=== PATIENT | male | born 1960 | race Caucasian/White ===

== ENCOUNTER 2022-01-23 07:41 | Outpatient (REF) | payer OTHER, SELFPAY ==
[2022-01-23 10:46] LABS: Hematocrit 43.3 % (42.0-52.0); Hemoglobin 14.7 g/dl (14.0-18.0); Mean Corpuscular HGB Conc 33.9 g/dl (31.0-36.0); Mean Corpuscular Hemoglobin 33.4 pg (27.0-33.0); Mean Corpuscular Volume 98.4 fL (80.0-98.0); Mean Platelet Volume 9.5 fL (9.4-12.4); Platelet Count 184 X10*3/uL (160-400); Red Cell Distribution Width 13.5 % (11.0-16.0); White Blood Count 3.8 X10*3/uL (4.8-10.8)
[2022-01-23 11:01] LABS: Alanine Aminotransferase 38 U/L (0-40); Albumin Level 4.6 g/dL (3.5-5.0); Alkaline Phosphatase 51 U/L (39-117); Anion Gap 14 (12-20); Aspartate Amino Transferase 35 U/L (5-37); Bilirubin Total 1.3 mg/dL (0.0-1.0); Blood Urea Nitrogen 14 mg/dL (9-16); Calcium 9.1 mg/dL (8.4-10.2); Carbon Dioxide 28 mmol/L (22-29); Chloride 100 mmol/L (96-108); Cholesterol 120 mg/dL; Estimated Glomerular Filt Rate > 60; Glucose Fasting 91 mg/dL (60-99); HDL Cholesterol 49 mg/dL; LDL Cholesterol Calculated 62 mg/dl; Potassium 4.7 mmol/L (3.3-5.1); Sodium 137 mmol/L (135-145); Total Protein 7.5 g/dL (6.5-8.0); Triglycerides 46 mg/dL
[2022-01-23 11:22] LABS: Prostate Specific Antigen Scr 1.08 ng/mL (<0.05-4.0); TSH reflex Free T4 1.18 uIU/mL (0.32-4.0)
[2022-01-23 12:28] LABS: Estimated Average Glucose 91 mg/dL; Hemoglobin A1c % 4.8 %
== END 2022-01-23 07:42 | disposition home or self-care (01) ==
LOC: HO.10HDL 07:41
PROVIDERS: Visit Provider Physician Assistant
DX: Z12.5 Encounter for screening for malignant neoplasm of prostate (principal); I25.10 Atherosclerotic heart disease of native coronary artery without angina pectoris
CPT/HCPCS: 36415; 80053; 80061; 83036; 84153; 84443; 85027

== ENCOUNTER 2022-07-10 19:48 | Outpatient (REF) | payer OTHER, SELFPAY ==
--- NOTE | ~2022-07-10 | MR_ITS ---
EXAMINATION: MR LUMBAR SPINE WITHOUT CONTRAST CLINICAL INFORMATION: Low back pain radiating into legs. COMPARISON: None available. TECHNIQUE: Multiplanar, multisequence imaging was obtained. FINDINGS: VERTEBRAL BODIES AND PARASPINAL STRUCTURES: The marrow signal is heterogeneous with fatty changes diffusely. There are no compression fractures. Minimal anterolisthesis noted at the L3-L4 level with very mild endplate edematous changes. There is a mild leftward curvature of the lumbar spine. The paraspinal soft tissues are normal. There are qbbp-[id number] degenerative changes of the sacroiliac joints. CONUS MEDULLARIS AND CAUDA EQUINE: The distal cord, conus tip, and cauda equina nerve roots are normal. SPINAL LEVELS: L1-L2: No disc pathology. Mild facet arthrosis. No central canal stenosis or foraminal narrowing. L2-L3: Small right paracentral disc protrusion and hypertrophic facet arthropathy with a mild disc bulge. Mild right foraminal narrowing due to bulging disc and endplate spurring. No significant central canal stenosis. L3-L4: Fqry-ad-ynvqbrnp loss of disc height and reduced intradiscal signal with a mild diffuse disc bulge and left paracentral to left lateral recess disc extrusion migrating inferiorly with compression of the left L4 nerve root. Xfvytkkv-hl-rwdgzn compression of the thecal sac as well. Hypertrophic facet arthropathy contributes to moderate central canal stenosis. Gthh-mb-ifoavukq foraminal narrowing, worse on the right side. L4-L5: Disc bulge and hypertrophic facet arthropathy without central canal stenosis. Right posterolateral disc protrusion results in moderate right foraminal encroachment and impression upon the exiting right L4 nerve root. Mild left foraminal narrowing. L5-S1: Mild disc bulge and hypertrophic facet arthropathy without central canal stenosis or foraminal narrowing. MR/MR lumbar spine wo con IMPRESSION: 1. Moderate spondylosis at the L3-L4 level with a left paracentral to left lateral recess disc extrusion migrating inferiorly and compressing the left L4 nerve root. Wgiilhsq-zm-bmdtcw thecal sac compression and moderate central canal stenosis with hypertrophic facet arthropathy. 2. Right posterolateral disc protrusion at the L4-L5 level with moderate right foraminal encroachment and impression upon the right L4 nerve root. 3. Small right paracentral disc protrusion at the L2-L3 level. Mild leftward lumbar spinal curvature.
== END 2022-07-10 19:49 | disposition home or self-care (01) ==
LOC: HO.MRI 19:48
PROVIDERS: PCP Physician Assistant; Visit Provider Physician Assistant
DX: M54.16 Radiculopathy, lumbar region (principal)
CPT/HCPCS: 72148

== ENCOUNTER 2022-08-01 10:42 | Outpatient (REF) | payer OTHER, SELFPAY ==
[2022-08-01 13:12] LABS: MANUAL DIFF FLAG NO
[2022-08-01 13:19] LABS: Basophils Absolute Auto 0.1 X10*3/uL (0.0-0.2); Basophils Percent Auto 1.2 % (0-2); Eosinophils Absolute Auto 0.3 X10*3/uL (0.0-0.4); Eosinophils Percent Auto 5.5 % (0-4); Hematocrit 44.9 % (42.0-52.0); Hemoglobin 15.6 g/dl (14.0-18.0); Imm Gran Abs Auto 0.01 X10*3/uL (0.00-0.03); Imm Gran Pct Auto 0.2 % (0.0-0.4); Lymphocytes Absolute Auto 1.7 X10*3/uL (1.2-4.9); Lymphocytes Percent Auto 32.4 % (20-40); Mean Corpuscular HGB Conc 34.7 g/dl (31.0-36.0); Mean Corpuscular Hemoglobin 33.2 pg (27.0-33.0); Mean Corpuscular Volume 95.5 fL (80.0-98.0); Mean Platelet Volume 9.9 fL (9.4-12.4); Monocytes Absolute Auto 0.4 X10*3/uL (0.1-1.2); Monocytes Percent Auto 8.2 % (2-11); Neutrophils Absolute Auto 2.7 x10*3/uL (2.0-8.3); Neutrophils Percent Auto 52.5 % (45-73); Platelet Count 195 X10*3/uL (160-400); Red Cell Distribution Width 14.2 % (11.0-16.0); White Blood Count 5.1 X10*3/uL (4.8-10.8)
[2022-08-01 14:07] LABS: TSH reflex Free T4 1.25 uIU/mL (0.32-4.0)
[2022-08-01 14:08] LABS: Alanine Aminotransferase 35 U/L (0-40); Albumin Level 4.5 g/dL (3.5-5.0); Alkaline Phosphatase 47 U/L (39-117); Anion Gap 15 (12-20); Aspartate Amino Transferase 31 U/L (5-37); Bilirubin Total 1.4 mg/dL (0.0-1.0); Blood Urea Nitrogen 22 mg/dL (9-16); Calcium 9.4 mg/dL (8.4-10.2); Carbon Dioxide 24 mmol/L (22-29); Chloride 105 mmol/L (96-108); Estimated Glomerular Filt Rate > 60; Glucose Random 90 mg/dL (60-115); Potassium 4.8 mmol/L (3.3-5.1); Sodium 139 mmol/L (135-145); Total Protein 7.5 g/dL (6.5-8.0)
[2022-08-01 14:09] LABS: Prothrombin Time 11.3 SEC (10.0-13.1)
== END 2022-08-01 10:43 | disposition home or self-care (01) ==
LOC: HO.10HDL 10:42
PROVIDERS: Visit Provider Nurse Practitioner Family
DX: Z01.812 Encounter for preprocedural laboratory examination (principal); Z13.0 Encounter for screening for diseases of the blood and blood-forming organs and certain disorders involving the immune mechanism
CPT/HCPCS: 36415; 80053; 84443; 85025; 85610

== ENCOUNTER 2022-09-26 09:08 | Emergency (ER) | payer OTHER, SELFPAY ==
[2022-09-26 09:15] VITALS: BP 168/103; PULSE 82; RESP 17; TEMP 36.5; O2SAT 96; BMI 30.7
--- NOTE | 2022-09-26 09:32 | ED.GENADULT ---
HPI - General Adult General Chief complaint: Back Pain/Injury Stated complaint: recent back surgery, having pain Time Seen by Provider: 09/26/22 09:23 Source: patient and family () Mode of arrival: ambulatory Limitations: no limitations History of Present Illness HPI narrative: Patient is a 62-year-old male with history of recent disc decompression of L3/L4 on 08/08/2022 presenting to the emergency department with complaint of right lower back and hip pain radiating down right leg for the past 3 days. States the pain began as a dull ache in right lateral hip and has progressively worsened. Contacted his surgeon who recommended patient be evaluated in an emergency department. Patient denies any saddle anesthesia, bowel or bladder incontinence, urinary retention. Denies any other urinary symptoms. Denies any numbness or tingling to right leg. States has taken his prescribed oxycodone and gabapentin with little relief. Currently rates pain at ?12/10. ? Denies fevers. Reports has been unable to sleep the past 2 nights related to pain. Patient reports that his pain prior to the surgery was always on his left side. He denies any chest pain or shortness of breath. MD complaint: right lower back pain Onset (ago): day(s) Location: back Radiation: extremity Severity: severe Severity scale (1-10): >10 Quality: burning and aching Pain Consistency: constant Relieving factors: none Exacerbating factors: movement Associated symptoms: denies other symptoms Treatments prior to arrival: other (prescribed oxycodone and gabapentin) Related Data Home Medications Medication Instructions Recorded Confirmed aspirin 81 mg tablet,delayed 81 mg PO DAILY 11/28/21 07/02/22 release atorvastatin 80 mg tablet 80 mg PO BEDTIME 11/28/21 07/02/22 clopidogrel 75 mg tablet 75 mg PO DAILY 11/28/21 07/02/22 lisinopril 10 mg tablet 10 mg PO DAILY 11/28/21 07/02/22 metoprolol succinate 25 mg 25 mg PO DAILY 11/28/21 07/02/22 tablet,extended release 24 hr Previous Rx's Medication Instructions Recorded ibuprofen 600 mg tablet 600 mg PO Q8H PRN pain 15 days #45 07/31/22 tabs oxycodone 5 mg tablet 5 mg PO Q8H PRN pain 5 days #15 07/31/22 tabs prednisone 50 mg tablet 50 mg PO DAILY #4 tabs 09/26/22 Allergies Allergy/AdvReac Type Severity Reaction Status Date / Time No Known Allergies Allergy Verified 09/26/22 10:06 Review of Systems Review of Systems: As per HPI. Yes all other systems are reviewed and are negative Constitutional: Constitutional: Reports as per HPI Neurologic: Denies Sensory deficit (Neuro) [facility] Past Medical History Medical History (Updated 09/26/22 @ 12:12 by Deana Matthew NP) Hypercholesterolemia Hypertension Myocardial infarct, old Surgical History (Updated 09/26/22 @ 09:45 by Sharla Mcgowan RN) Hx of heart artery stent Previous back surgery Family History Family History Mother Skin cancer Father CAD (coronary artery disease) Social History Social History Housing: House Alcohol intake: current Alcohol intake frequency: holidays/special occasions only Alcohol type: wine Patient Tobacco Use Status: Former Tobacco user Quit Date: 1989 Smoked in Last 30 Days: No e-Cigarette/Vaping Use: Never Used Second Hand Smoke Exposure: No Use of substances other than those prescribed or required for medical reasons: No Advance Directives: Yes Advance Directives Information Provided: Yes Advance Directives on File: No service: No Current occupational status: employed 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 Blood pressure elevated. Heart rate normal. Respiratory rate normal. Temperature normal. Oxygen saturation normal. Const General: cooperative, healthy appearing and no acute distress Orientation/consciousness: oriented to person, oriented to place, oriented to time and patient oriented x3 Limitations: no limitations HENMT Head: Yes normocephalic and Yes atraumatic Ears: external ears normal General nose exam: Normal external nose present Face and sinus: Yes face symmetric Mouth: oropharynx normal and moist mucous membranes Throat: Yes uvula midline Eyes Pupils: Equal, round and reactive pupils present Neck Neck: Yes normal visual inspection and Yes supple Resp Effort & Inspection: normal respiratory effort and able to speak in complete sentences Auscultation: clear to auscultation bilaterally Cardio Rate: regular rate Rhythm: regular rhythm Heart sounds: S1 normal heart sound present and S2 normal heart sound present GI Palpation (GI): Soft to palpation and nontender Auscultation: normoactive bowel sounds General: Yes no CVA tenderness Back/Spine/Pelvis Back: no CVA tenderness Thoracic/Lumbar Spine: thoracic and lumbar spine normal to inspection (surgical scar appears well healed), Thoracic/lumbar spine scar(s), thoraco-lumbar ROM normal, straight leg raise negative bilaterally, pain with thoraco-lumbar ROM, No thoracic spinal tenderness and No lumbar spinal tenderness Skin General skin exam: elasticity normal and turgor normal Neuro General: oriented to person, oriented to place, oriented to time, patient oriented x3, tone normal, moves all extremities, no focal motor deficits, CN's II-XI intact bilaterally and deep tendon reflexes 2+ bilaterally Cranial nerves: Yes Equal, round and reactive pupils present Cognition (Neuro): normal cognition Motor exam (neuro): 5/5 motor strength present throughout, Normal motor muscle tone present throughout and Motor abnormalities not present Sensory Exam: Normal double simultaneous stimulation for sensation; No Sensory deficit (Neuro) Extrem General: Yes full ROM, Yes no pedal edema and Yes no calf tenderness Psych Mental Status: mental status grossly normal Affect: normal affect Thought process: Normal thought process present Medications Administered Discontinued Medications Generic Name Dose Route Start Last Admin Trade Name Felix PRN Reason Stop Dose Admin Morphine Sulfate 4 mg 09/26/22 10:09/26/22 10:25 Morphine Sulfate 4 Mg/Ml Cartridge IM 09/26/22 10:08 4 mg ONCE ONE Administration Protocol Prednisone 50 mg 09/26/22 10:09/26/22 10:26 Prednisone 10 Mg Tablet PO 09/26/22 10:08 50 mg ONCE ONE Administration Medical Decision Making Medical Decision Making [facility] Narrative: Patient is a 62-year-old male with history of recent disc decompression of L3/L4 on 08/08/2022 presenting to the emergency department with complaint of right lower back and hip pain radiating down right leg for the past 3 days. On exam patient is awake, A+Ox3, VS WNL, afebrile, normal neurological exam without focal deficits, no midline thoracic or lumbar spinal tenderness, normal straight leg raise bilaterally, DTRs 2+ throughout, sensation intact bilaterally. Given reported symptoms and physical exam findings, initial differential includes lumbar strain, post-op infection, herniated disc. Labs notable for no leukocytosis, normal CRP. X-ray of lumbar spine ordered which patient refused. Unlikely cauda equina or spinal epidural abscess based on physical exam findings. Unlikely post-op infection based on lab findings. Unlikely UTI/pyelonephritis. Patient medicated for pain in ED and prednisone ordered as well as patient states this was the recommendation from his surgeon. 12:12 Patient requesting discharge, ESR pending. Patient states that while in the ED he has scheduled an MRI for himself for Thursday. All results discussed and questions answered. Return precautions discussed at bedside. Discussed case with Dr. Harrison who feels patient is stable for discharge home. Will prescribe short course of prednisone as patient states this improved his pain in the ED. patient verbalize understanding of importance of following up with surgeon. Differential Diagnosis Differential Diagnoses: The differential diagnosis associated with the presentation includes As per MDM. Consult Healthcare Provider Management of the patient was discussed with: Underwriting Manager (Dr. Harrison) Lab Data [facility] Lab Attestation statement: I reviewed the patient's lab results. As per MDM. 09/26/22 10:26 09/26/22 10:26 Labs: Lab Results 09/26/22 09/26/22 Range/Units 10:26 10:26 WBC 4.8 (4.8-10.8) X10*3/uL RBC 4.44 L (4.60-5.80) X10*6/uL Hgb 14.6 (14.0-18.0) g/dl Hct 42.3 (42.0-52.0) % MCV 95.3 (80.0-98.0) fL MCH 32.9 (27.0-33.0) pg MCHC 34.5 (31.0-36.0) g/dl RDW 13.2 (11.0-16.0) % Plt Count 148 L (160-400) X10*3/uL MPV 9.4 (9.4-12.4) fL Immature Gran % (Auto) 0.0 (0.0-0.4) % Neut % (Auto) 41.1 L (45-73) % Lymph % (Auto) 41.0 H (20-40) % Warrick % (Auto) 9.3 (2-11) % Eos % (Auto) 7.2 H (0-4) % Baso % (Auto) 1.4 (0-2) % Lymph # (Auto) 2.0 (1.2-4.9) X10*3/uL Warrick # (Auto) 0.5 (0.1-1.2) X10*3/uL Eos # (Auto) 0.4 (0.0-0.4) X10*3/uL Baso # (Auto) 0.1 (0.0-0.2) X10*3/uL Abs Immat Gran (auto) 0.00 (0.00-0.03) X10*3/uL Absolute Neuts (auto) 2.0 (2.0-8.3) x10*3/uL Absolute Nucleated RBC 0.000 (0.0-0.012) X10*3/uL Nucleated RBC % (auto) 0.0 (0.0-0.2) /100WBC Sodium 137 (135-145) mmol/L Potassium 4.8 (3.3-5.1) mmol/L Chloride 104 (96-108) mmol/L Carbon Dioxide 26 (22-29) mmol/L Anion Gap 12 (12-20) BUN 25 H (9-16) mg/dL Creatinine 0.98 (0.5-1.4) mg/dL Estim Creat Clear Calc 84.7 Estimated GFR > 60 Random Glucose 97 (60-115) mg/dL Calcium 9.1 (8.4-10.2) mg/dL C-Reactive Protein < 0.04 (< or = 0.50) mg/dL Independent Interpretation Interpretation: Patient refused x-ray. Independent Historian Clinical information obtained from an independent historian. History obtained from or confirmed by: Spouse () External Record Review External record reviewed: Inpatient record, Office record and Outpatient record Tests considered The following testing was considered but not selected: Considered CT/MRI, but not indicated based on physical exam Prescription Management I considered prescription management with: Pain Medication and Other (prednisone) Discharge Plan Discharge Clinical Impression: Lumbar back pain with radiculopathy affecting right lower extremity Patient Disposition: Home, Self-Care Instructions: Lumbar Radiculopathy (ED) Additional Instructions: You were evaluated in the emergency department today for back pain. Your evaluation did not show signs of medical conditions requiring emergent intervention at this time. We recommended that you use ibuprofen or Tylenol per package directions every 6 hours as needed for pain. If necessary, you can alternate these medications so that you take one medication every 3 hours. For instance, at noon take ibuprofen, then at 3:00 p.m. take Tylenol, then at 6:00 p.m. take ibuprofen. You are also being prescribed a short course of a steroid called prednisone. Do not take any ibuprofen while taking the prednisone. You may resume use of ibuprofen once you have finished the prednisone. You should also use the gabapentin and oxycodone prescribed to you by your surgeon. Please schedule an appointment for follow-up with your surgeon and primary care physician this week for further evaluation of your symptoms. Return to the emergency department if you experience worsening back pain, difficulty walking, fevers, numbness, tingling, incontinence, groin numbness or tingling, or any other concerning symptoms. Prescriptions: New prednisone 50 mg tablet 50 mg PO DAILY Qty: 4 0RF No Action oxycodone 5 mg tablet 5 mg PO Q8H PRN (Reason: pain) 5 Days Qty: 15 0RF Rx Instructions: Partial Fill upon patient request. ibuprofen 600 mg tablet 600 mg PO Q8H PRN (Reason: pain) 15 Days Qty: 45 0RF metoprolol succinate 25 mg tablet extended release 24 hr 25 mg PO DAILY lisinopril 10 mg tablet 10 mg PO DAILY aspirin 81 mg tablet,delayed release (DR/EC) 81 mg PO DAILY clopidogrel 75 mg tablet 75 mg PO DAILY atorvastatin 80 mg tablet 80 mg PO BEDTIME
--- NOTE | 2022-09-26 09:46 | PC.NURSE ---
patient a&ox3, c/o rt lower back pain radiating down through groin, buttocks/hip and down leg. patient states his provider in [place] is requesting an mri, c/o 12/16 pain. pt has taken oxycodone/gabapentin and ibuprofen without relief, pt currently is not on any steroids.
[2022-09-26] MEDS: Morphine Sulfate 4 MG/ML CARTRIDGE IM (10:25)
[2022-09-26] MEDS: predniSONE 10 MG TABLET 50 MG PO (10:26)
--- NOTE | 2022-09-26 10:28 | PC.NURSE ---
patient refused xray, tech ramirez labs, pt medicated per order call sanchez within reach, will continue to monitor
[2022-09-26 10:33] LABS: MANUAL DIFF FLAG NO
[2022-09-26 10:36] LABS: Basophils Absolute Auto 0.1 X10*3/uL (0.0-0.2); Basophils Percent Auto 1.4 % (0-2); Eosinophils Absolute Auto 0.4 X10*3/uL (0.0-0.4); Eosinophils Percent Auto 7.2 % (0-4); Hematocrit 42.3 % (42.0-52.0); Hemoglobin 14.6 g/dl (14.0-18.0); Mean Corpuscular HGB Conc 34.5 g/dl (31.0-36.0); Mean Corpuscular Hemoglobin 32.9 pg (27.0-33.0); Mean Corpuscular Volume 95.3 fL (80.0-98.0); Mean Platelet Volume 9.4 fL (9.4-12.4); Monocytes Absolute Auto 0.5 X10*3/uL (0.1-1.2); Monocytes Percent Auto 9.3 % (2-11); Neutrophils Percent Auto 41.1 % (45-73); Platelet Count 148 X10*3/uL (160-400); Red Blood Count 4.44 X10*6/uL (4.60-5.80); Red Cell Distribution Width 13.2 % (11.0-16.0); White Blood Count 4.8 X10*3/uL (4.8-10.8)
[2022-09-26 10:57] LABS: Anion Gap 12 (12-20); Blood Urea Nitrogen 25 mg/dL (9-16); C Reactive Protein < 0.04 mg/dL (< or = 0.50); Calcium 9.1 mg/dL (8.4-10.2); Carbon Dioxide 26 mmol/L (22-29); Chloride 104 mmol/L (96-108); Creatinine Clr Calc Pharmacy 84.7; Estimated Glomerular Filt Rate > 60; Glucose Random 97 mg/dL (60-115); Potassium 4.8 mmol/L (3.3-5.1); Sodium 137 mmol/L (135-145)
[2022-09-26 11:28] VITALS: BP 128/76; PULSE 52; RESP 18; TEMP 36.3; O2SAT 95
--- NOTE | 2022-09-26 11:31 | PC.NURSE ---
pt a&ox3, vss, pt stating 9/10 pain level post medication administration, states that the pain worsens while he is standing but the level drops to a 4/10 when he lies flat.
[2022-09-26 12:23] LABS: Erythrocyte Sedimentation Rate 2 MM/HR (0-15)
== END 2022-09-26 12:17 | disposition home or self-care (01) ==
PROVIDERS: Registered Nurse Emergency; Emergency Provider Emergency Medicine; PCP Physician Assistant
DX: M54.16 Radiculopathy, lumbar region (principal); M54.41 Lumbago with sciatica, right side; I10 Essential (primary) hypertension; Z79.899 Other long term (current) drug therapy
CPT/HCPCS: 36415; 80048; 85025; 85652; 86140; 96372; 99284; J2270

== ENCOUNTER 2022-12-24 14:51 | Outpatient (AMB) | payer OTHER, SELFPAY ==
[2022-12-24 14:57] VITALS: BP 134/76; PULSE 79; O2SAT 99; BMI 29.8
--- NOTE | 2022-12-24 14:57 | MHC.PC.OV ---
Vital Signs 12/24/22 14:57 Height 5 ft 8 in Weight 196 lb BMI 29.8 BP 134/76 Blood Pressure Location Lt brachial Position Sitting Pulse 79 Pulse Source Pulse Oximeter Temp Source Skin Pulse Oximetry (%) 99 Oxygen Delivery Method Room Air Intake Visit Reasons: Annual Exam Intake Note: Patient is here today for a physical. 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 Allergies No Known Allergies Allergy (Verified 12/24/22 15:10) Medication List - Last Reconciled 12/24/22 by PAULINE Webb aspirin 81 mg PO DAILY atorvastatin 80 mg PO BEDTIME ibuprofen 600 mg PO Q8H PRN 15 days lisinopril 10 mg PO DAILY metoprolol succinate ER 25 mg PO DAILY Tobacco use date assessed: 12/24/22 Dental Screening Dental Screen Date: 12/24/22 Did you have a dental visit in the last 12 months?: Yes Did you have a dental problem in the last 6 months where you did not have access to dental care?: No Was dental information given to patient?: Patient has dentist HPI Annual Exam HPI Details Patient is a 62-year-old male who presents today for physical exam. Patient of REY Rendon. medical history significant for CAD-followed by Cardiology Dr. Hernandez, hypertension, lumbar radiculopathy-reports back surgery recently-follows by Neurosurgery in [place]-reports pain is improving. Patient did have normal colonoscopy in [address] [place]illo [place] [facility] [place], repeat in 10 years, will refer. Also discussed patient's need for tetanus and pneumonia vaccines, patient has declined. Up-to-date with eye and dental exams. Patient denies shortness of breath or chest pain. Patient is due for blood work. [facility] Medical History (Updated 12/24/22 @ 15:29 by PAULINE Webb) Pelvic pain in male COVID-19 Hypercholesterolemia Hypertension Myocardial infarct, old Surgical History Hx of heart artery stent Previous back surgery Family History Mother Skin cancer Father CAD (coronary artery disease) Social History Housing: House Alcohol intake: current Alcohol intake frequency: holidays/special occasions only Alcohol type: wine Patient Tobacco Use Status: Former Tobacco user Quit Date: 1989 e-Cigarette/Vaping Use: Never Used Second Hand Smoke Exposure: No service: No Current occupational status: employed Current occupation: [employer] Current occupational exposures/hazards: No Cognitive needs: No Hearing needs: No Vision needs: Yes (reading glasses) Questionnaire PHQ-9 Over the last 2 weeks, how often have you been bothered by any of the following problems? 1. Little interest or pleasure in doing things: not at all 2. Feeling down, depressed, or hopeless: not at all 3. Trouble falling or staying asleep, or sleeping too much: not at all 4. Feeling tired or having little energy: not at all 5. Poor appetite or overeating: not at all 6. Feeling bad about yourself - or that you are a failure or have let yourself or your family down: not at all 7. Trouble concentrating on things, such as reading the newspaper or watching television: not at all 8. Moving or speaking so slowly that other people could have noticed. Or the opposite - being so fidgety or restless that you have been moving around a lot more than usual: not at all 9. Thoughts that you would be better off or of hurting yourself in some way: not at all Total score: 0 Depression Screening Interpretation: Negative Depression Screening Done: Yes 58352 - PHQ-9 Billing: Yes Source: Developed by Drs. Terry Mckeon, Denise Enrique, Nacho Laboy and colleagues, with an educational erika from [employer]. Thrive Questionnaire Date Thrive assessed: 08/01/22 AUDIT C Alcohol Use Questionnaire (AUDIT-C) 1. How often do you have a drink containing alcohol?: 2-3 times a week 2. How many drinks containing alcohol do you have on a typical day when you are drinking?: 1 or 2 3. How often do you have six or more drinks on one occasion?: Never Total Score: 3 Score Reviewed/Action Taken: No EB-7 AMB Questionnaire EB-7 Date EB - 7 assessed: 12/24/22 Feeling nervous, anxious, or on edge: 0 = Not at all Not being able to stop or control worryin = Not at all Worrying too much about different things: 0 = Not at all Trouble relaxin = Not at all Being so restless that it is hard to sit still: 0 = Not at all Becoming easily annoyed or irritable: 0 = Not at all Feeling afraid as if something awful might happen: 0 = Not at all Total EB-7 score (0-4 normal; 5-9 mild; 10-14 moderate; 15-21 severe): 0 Source: Developed by Drs. Terry Mckeon, Denise Enrique, Nacho Laboy and colleagues, with an educational erika from [employer]. EB-7 Assessment Billing EB-7 Assessment Tool: EB-7 Assessment 33378 Review of Systems Const Denies body aches, Denies chills, Denies fever(s) and Denies headache(s) Eyes Denies change in vision ENT Denies dizziness, Denies otalgia, Denies headache(s), Denies nasal discharge, Denies sinus pain and Denies sore throat Card Denies chest pain, Denies edema, Denies lightheadedness and Denies dyspnea Resp Denies cough, Denies dyspnea and Denies wheezing GI Denies abdominal pain, Denies constipation, Denies diarrhea, Denies nausea and Denies vomiting Denies dysuria Musc Denies myalgias Skin/Breast Denies rash Neuro Denies dizziness and Denies headache(s) Aller/Immun Denies wheezing Physical exam (Primary Care) Vital Signs: Last Vital Signs Pulse 79 12/24/22 14:57 BP 134/76 12/24/22 14:57 Pulse Ox 99 12/24/22 14:57 Oxygen Delivery Method Room Air 12/24/22 14:57 BMI result Body Mass Index 29.8 Tobacco/Smoking Status: Tobacco use Status Tobacco use date assessed 12/24/22 12/24/22 15:03 Patient Tobacco Use Status Former Tobacco user 12/24/22 15:03 e-Cigarette/Vaping Use Never Used 12/24/22 15:03 PHQ-9: PHQ-9 Score PHQ-9: Total score 0 12/24/22 15:03 Depression Screening Interpretation: Negative Thrive Assessment: Date of Thrive Assessment Date Thrive assessed 08/01/22 12/24/22 15:03 Const General: cooperative and no acute distress Orientation/consciousness: patient oriented x3 HENMT Head: Yes normocephalic and Yes atraumatic Ears: TM's normal bilaterally Face and sinus: Yes sinuses nontender Mouth: oropharynx normal and moist mucous membranes Throat: Yes posterior oropharynx normal Eyes General: appearance normal, both eyes and all related structures Pupils: Equal, round and reactive pupils present EOM: EOMs intact bilaterally Neck Neck: Yes normal visual inspection, Yes full ROM and Yes no lymphadenopathy Thyroid: Thyroid normal Resp Effort & Inspection: normal respiratory effort and able to speak in complete sentences Auscultation: clear to auscultation bilaterally, no crackles, no rales, no rhonchi and no wheezes Cardio Rate: regular rate Rhythm: regular rhythm Heart sounds: S1 normal heart sound present, S2 normal heart sound present and no murmurs GI Palpation (GI): Soft to palpation, not firm, nontender, no guarding, not rigid and no hepatosplenomegaly Auscultation: normal bowel sounds General: No CVA tenderness Back/Spine/Pelvis Back: No CVA tenderness Skin General skin exam: no rashes or lesions noted Neuro General: patient oriented x3 Cranial nerves: Yes Equal, round and reactive pupils present Gait exam (Neuro): Normal gait present Extrem General: Yes full ROM and No edema Assessment and Plan Assessment & Plan (1) Screening for prostate cancer: Code(s): Z12.5 - Encounter for screening for malignant neoplasm of prostate (2) HTN (hypertension): Code(s): I10 - Essential (primary) hypertension Qualifiers: Hypertension type: primary hypertension Qualified Code(s): I10 - Essential (primary) hypertension Plan: Goal BP equal or less than 140/90 Continue lisinopril and metoprolol Continue to follow-up with cardiology (3) Colon cancer screening: Code(s): Z12.11 - Encounter for screening for malignant neoplasm of colon (4) CAD (coronary artery disease): Code(s): I25.10 - Atherosclerotic heart disease of [place] coronary artery without angina pectoris Qualifiers: Coronary Disease-Associated Artery/Lesion type: [place] artery [place] vs. transplanted heart: [place] heart Associated angina: without angina Qualified Code(s): I25.10 - Atherosclerotic heart disease of [place] coronary artery without angina pectoris Plan: Continue to follow-up with cardiology Dr. Hernandez at [facility] LDL goal less than 70 Continue aspirin 81 mg daily and atorvastatin Patient reports that Plavix was recently stopped by his Cardiology, he has been on Plavix for 1 year (5) Annual physical exam: Code(s): Z00.00 - Encounter for general adult medical examination without abnormal findings Plan: Repeat in 1 year Orders: Orders TSH reflex Free T4 Today I10 - Essential (primary) hypertension Comprehensive [place]. Panel Fast Today I10 - Essential (primary) hypertension Prostate Specific Antigen Today Z12.5 - Encounter for screening for malignant neoplasm of prostate Vitamin D 25-OH Total Today I25.10 - Atherosclerotic heart disease of [place] coronary artery without angina pectoris Lipid Panel Today I10 - Essential (primary) hypertension Referrals Gastroenterology Referral Z12.11 - Encounter for screening for malignant neoplasm of colon Coding Level of Care Code Est Pt Prev Care 40-64y(56164) Diagnoses Screening for prostate cancer Z12.5 Primary hypertension I10 Hypertension type: primary hypertension Colon cancer screening Z12.11 Coronary artery disease involving [place] coronary artery of [place] heart without angina pectoris I25.10 Coronary Disease-Associated Artery/Lesion type: [place] artery [place] vs. transplanted heart: [place] heart Associated angina: without angina Annual physical exam Z00.00 Additional Codes EB-7 Assessment Billing - EB-7 Assessment Tool: EB-7 Assessment [id number] ([id number])
== END 2022-12-24 15:27 | disposition home or self-care (01) ==
PROVIDERS: PCP Physician Assistant; Visit Provider Nurse Practitioner Family
DX: Z12.5 Encounter for screening for malignant neoplasm of prostate (principal); I10 Essential (primary) hypertension; Z12.11 Encounter for screening for malignant neoplasm of colon; I25.10 Atherosclerotic heart disease of native coronary artery without angina pectoris; Z00.00 Encounter for general adult medical examination without abnormal findings
CPT/HCPCS: 99396

== ENCOUNTER 2022-12-24 15:31 | Outpatient (REF) | payer OTHER, SELFPAY ==
[2022-12-24 16:56] LABS: Alanine Aminotransferase 37 U/L (0-40); Albumin Level 4.5 g/dL (3.5-5.0); Alkaline Phosphatase 51 U/L (39-117); Anion Gap 14 (12-20); Aspartate Amino Transferase 32 U/L (5-37); Bilirubin Total 1.2 mg/dL (0.0-1.0); Blood Urea Nitrogen 14 mg/dL (9-16); Calcium 9.6 mg/dL (8.4-10.2); Carbon Dioxide 26 mmol/L (22-29); Chloride 105 mmol/L (96-108); Cholesterol 129 mg/dL (<200); Estimated Glomerular Filt Rate > 60; Glucose Fasting 80 mg/dL (60-99); HDL Cholesterol 49 mg/dL (>40); LDL Cholesterol Calculated 70 mg/dL (<100); Potassium 4.1 mmol/L (3.3-5.1); Sodium 141 mmol/L (135-145); Total Protein 7.6 g/dL (6.5-8.0); Triglycerides 50 mg/dL (<150)
[2022-12-24 17:11] LABS: Prostate Specific Antigen 1.21 ng/mL (<0.05-4.0); TSH reflex Free T4 1.39 uIU/mL (0.32-4.0); Vitamin D 25-OH Total 54.1 ng/mL (>30)
== END 2022-12-24 15:32 | disposition home or self-care (01) ==
LOC: HO.LAB 15:31
PROVIDERS: PCP Physician Assistant; Referring Provider Internal Medicine Cardiovascular Disease; Visit Provider Nurse Practitioner Family
DX: Z12.5 Encounter for screening for malignant neoplasm of prostate (principal); I10 Essential (primary) hypertension; I25.10 Atherosclerotic heart disease of native coronary artery without angina pectoris; M54.50 Low back pain, unspecified
CPT/HCPCS: 36415; 80053; 80061; 82306; 84153; 84443

== ENCOUNTER 2023-04-04 21:10 | Emergency (ER) | payer OTHER, SELFPAY ==
[2023-04-04 21:26] VITALS: BP 143/88; PULSE 90; RESP 16; TEMP 36.7; O2SAT 95; BMI 31.4
[2023-04-04] MEDS: Lidocaine HCl 1 % MPF 5 ML VIAL INFILTRATI ×2 (23:06)
--- NOTE | 2023-04-04 23:29 | ED.FALL ---
HPI - Fall General Chief Complaint: Fall Stated Complaint: Fall/Eyebrow lac Time Seen by Provider: 04/04/23 22:35 Source: patient Mode of arrival: ambulatory Limitations: no limitations History of Present Illness HPI Narrative: 63-year-old male who presents emergency department for evaluation of a closed head injury and laceration to his right lateral eyebrow. Patient states that he was on his porch and was wearing sandals. He states that he slipped out of his sandals which caused him to fall forward striking his head on the wooden deck of the porch. He believes that he had a momentary loss of consciousness. His came out after she heard the fall and states that he was unresponsive briefly but then woke up. The injury occurred at 16:30 hours (6-7 hours prior to evaluation in the emergency department). Patient denies headache, nausea, vomiting, lightheadedness, dizziness, weakness. He states that his tetanus status is up-to-date. Related Data Home Medications Medication Instructions Recorded Confirmed aspirin 81 mg tablet,delayed 81 mg PO DAILY 11/28/21 12/24/22 release atorvastatin 80 mg tablet 80 mg PO BEDTIME 11/28/21 12/24/22 lisinopril 10 mg tablet 10 mg PO DAILY 11/28/21 12/24/22 metoprolol succinate 25 mg 25 mg PO DAILY 11/28/21 12/24/22 tablet,extended release 24 hr Previous Rx's Medication Instructions Recorded ibuprofen 600 mg tablet 600 mg PO Q8H PRN pain 15 days #45 07/31/22 tabs atorvastatin 40 mg tablet 40 mg PO DAILY #90 tabs 01/13/23 Allergies Allergy/AdvReac Type Severity Reaction Status Date / Time No Known Allergies Allergy Verified 04/04/23 21:26 Review of Systems Review of Systems: Yes all other systems are reviewed and are negative PMFSH Past Medical History Medical History (Updated 04/04/23 @ 23:33 by Andrew Peraza MD) Pelvic pain in male COVID-19 Hypercholesterolemia Hypertension Myocardial infarct, old Surgical History Hx of heart artery stent Previous back surgery Family History Family History Mother Skin cancer Father CAD (coronary artery disease) Social History Social History Housing: House Alcohol intake: current Alcohol intake frequency: holidays/special occasions only Alcohol type: wine Patient Tobacco Use Status: Former Tobacco user Quit Date: 1989 Smoked in Last 30 Days: Yes e-Cigarette/Vaping Use: Never Used Second Hand Smoke Exposure: No Substance Use Type: Marijuana Substance Use Frequency: Occasionally Advance Directives: Yes Advance Directives Information Provided: No Advance Directives on File: No service: No Current occupational status: employed 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 There has no significant tenderness with palpation over his right orbit. EENT: Pupils were equal round reactive light, sclera contact however normal, mouth revealed moist membranes Neuro: Cranial nerves 2-12 are intact, strength symmetric bilaterally, patient is able to walk without any difficulty Medications Administered Discontinued Medications Generic Name Dose Route Start Last Admin Trade Name Basilioq PRN Reason Stop Dose Admin Lidocaine HCl 5 ml 04/04/23 23:02 04/04/23 23:06 Lidocaine Hcl 1 % Mpf 5 Ml Vial INFILTRATI 04/04/23 23:03 5 ml ONCE STA Administration Lidocaine HCl 5 ml 04/04/23 23:02 04/04/23 23:06 Lidocaine Hcl 1 % Mpf 5 Ml Vial INFILTRATI 04/04/23 23:03 5 ml ONCE ONE Administration Procedures Laceration Right lateral eyebrow laceration: Side (If applicable): right Size (cm): 1.5 Description: stellate Depth: involves muscle layer Local Anesthetic: lidocaine 1% Amount of anesthesia used (mL): 5 Pre-repair: wound explored Skin layer closed with: nylon Size (cm): 5-0 Number of sutures: 6 Technique: simple, interrupted Subcutaneous layer closed with: vicryl Number of sutures: 3 Muscle layer closed with: vicryl Size: 3-0 Number of sutures: 3 Technique: simple, interrupted Medical Decision Making Medical Decision Making MDM Narrative: 63-year-old male with a history of hypertension, coronary artery disease who presents emergency department for evaluation of a fall from standing position, striking his head on a wooden deck and having a brief loss of consciousness. Injury occurred approximately 67 hours prior to coming to the emergency department. Patient did sustain a suturable laceration to his right lateral eyebrow, he has had no concerning symptoms such as headache, nausea, vomiting, dizziness or weakness. Vital signs were normal. Exam did reveal suturable laceration to the right lateral eyebrow otherwise was unremarkable. I recommended that the patient had a CT scan of the head rule out fracture, bleed. I did discuss the risk of missing a skull fracture, subdural epidural bleed with the patient however after this discussion he elected not to get a CT scan since he is asymptomatic. Patient's laceration was repaired in 2 layers with 3 Vicryl sutures to close the inner layer in 6 nylon sutures to close the outer layer. Patient tolerated the procedure well. Patient states that his tetanus shot was last given with in 5 years. He was given printed and verbal instructions discharged home Differential diagnosis includes was not limited to skull fracture, intracranial bleed, concussion, laceration requiring suture repair Discharge Plan Discharge Clinical Impression: Closed head injury Qualifiers: Encounter type: initial encounter Qualified Code(s): S09.90XA - Unspecified injury of head, initial encounter Face lacerations Qualifiers: Encounter type: initial encounter Qualified Code(s): S01.81XA - Laceration without foreign body of other part of head, initial encounter Patient Disposition: Home, Self-Care Instructions: Laceration (ED) Additional Instructions: You had a closed head injury with loss of consciousness which was very brief. You have no symptoms at this time (no headache, nausea, vomiting). I recommended that you get a CT scan of your head to rule out a skull fracture or bleeding in the brain however you decided that you do not want a CT scan at this time. If you developed headache, nausea, vomiting, confusion, seizure or any change that you concerned about return to the emergency department and we can get a CT scan on you. Your cut to right eyebrow was closed with three dissolvable stitches on the inside and six stitches on the outside that need to be removed in 7-10 days. Either your doctor or an urgent care clinic remove the stitches. If you can not get your stitches removed by these providers then you can come to the emergency department to have your stitches removed. Apply bacitracin or Neosporin twice a day until the stitches are removed. Please return to the emergency department if your symptoms get worse or if you develop any symptoms that are concerning to you. Prescriptions: No Action ibuprofen 600 mg tablet 600 mg PO Q8H PRN (Reason: pain) 15 Days Qty: 45 0RF atorvastatin 40 mg tablet 40 mg PO DAILY Qty: 90 1RF metoprolol succinate 25 mg tablet extended release 24 hr 25 mg PO DAILY lisinopril 10 mg tablet 10 mg PO DAILY aspirin 81 mg tablet,delayed release (DR/EC) 81 mg PO DAILY atorvastatin 80 mg tablet 80 mg PO BEDTIME
[2023-04-04] MEDS: Bacitracin Oint 0.9 GM PACKET 1 APPL TOPICAL (23:36)
== END 2023-04-04 23:43 | disposition home or self-care (01) ==
PROVIDERS: Emergency Provider Emergency Medicine Emergency Medical Services; PCP Physician Assistant
DX: S09.90XA Unspecified injury of head, initial encounter (principal); S01.111A Laceration without foreign body of right eyelid and periocular area, initial encounter; W01.198A Fall on same level from slipping, tripping and stumbling with subsequent striking against other object, initial encounter; Y93.89 Activity, other specified; Y92.018 Other place in single-family (private) house as the place of occurrence of the external cause; Y99.9 Unspecified external cause status
CPT/HCPCS: 12051; 99284

== ENCOUNTER 2023-09-16 14:49 | Outpatient (AMB) | payer OTHER, SELFPAY ==
[2023-09-16 14:58] VITALS: BP 110/70; PULSE 73; O2SAT 96; BMI 29.6
--- NOTE | 2023-09-16 14:58 | MHC.OFFVIS ---
Vital Signs 09/16/23 14:58 Height 5 ft 8 in Weight 195 lb BMI 29.6 BP 110/70 Blood Pressure Location Lt brachial Position Sitting Pulse 73 Pulse Source Pulse Oximeter Pulse Oximetry (%) 96 Oxygen Delivery Method Room Air Intake Visit Reasons: Pulmonary Nodule Intake Note: pt is here as a new patient for pulm nodule found during the hospital. 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 He was found to have a stone in the gallbladder but no acute inflammation. CT scan of chest and abdomen was performed. The only positive finding was a silent stone in the gallbladder. In the chest he was found to have with 2 mm nodule in left upper lobe. The patient was advised to have a follow-up with Pulmonary, and that is why he has come to see me today. He was also advise that he should make appointment with a natural resources extension educator, for having a possible upper endoscopy. Nando has no history of any pulmonary symptoms. He did smoke from age [age] and quit back in 1983, so basically he is considered nonsmoker and low risk. As far as his recurrent epigastric pain is concerned, he describes that it usually happens at middle of the night, and it stays for about 15-16 hours. It is happening every few weeks. He has no definite symptoms of GERD before the onset. He can not pinpoint if this is related to any food item. Because he has history of coronary artery disease each time he has pain he worries about his heart. He wants to get to the bottom of cause of this pain. HE DRINKS ALCOHOL ONLY ON SOCIAL OCCASIONS. HE SMOKES MARIJUANA OFF AND ON. NOTED ABOVE HE QUIT SMOKING CIGARETTES BACK IN 1983 [facility] Medical History Solitary pulmonary nodule Pelvic pain in male COVID-19 Hypercholesterolemia Hypertension Myocardial infarct, old Surgical History Hx of heart artery stent Previous back surgery Family History Mother Skin cancer Father CAD (coronary artery disease) Social History Housing: House Alcohol intake: current Alcohol intake frequency: holidays/special occasions only Alcohol type: wine Patient Tobacco Use Status: Former Tobacco user e-Cigarette/Vaping Use: Never Used Second Hand Smoke Exposure: No Substance Use Type: Marijuana service: No Current occupational status: employed 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 Current occupational exposures/hazards: No Cognitive needs: No Hearing needs: No Vision needs: Yes (reading glasses) Review of Systems Const All systems reviewed & are unremarkable except as noted in HPI and below Eyes Reports no additional complaints ENT Reports no additional complaints Card Denies chest pain, Denies chest pain at rest and Denies irregular heart rhythm Resp Reports no additional complaints GI Reports no additional complaints Reports no additional complaints Musc Reports no additional complaints Skin/Breast Reports system reviewed and no additional complaints, except as documented Neuro Reports no additional complaints Psych Reports no additional complaints Endo Reports no additional complaints Physical Exam Vital Signs: Last Vital Signs Pulse 73 09/16/23 14:58 BP 110/70 09/16/23 14:58 Pulse Ox 96 09/16/23 14:58 Oxygen Delivery Method Room Air 09/16/23 14:58 BMI result Body Mass Index 29.6 Const General: healthy appearing, comfortable, no acute distress, alert and awake Orientation/consciousness: patient oriented x3 HEENT Head: Yes normal to inspection General nose exam: No nasal polyps present and No nasal discharge present Face and sinus: Yes sinuses nontender Mouth: oropharynx normal Throat: Yes posterior oropharynx normal Eyes General: appearance normal, both eyes and all related structures Neck Neck: Yes normal visual inspection, Yes no lymphadenopathy, Yes trachea midline and Yes no JVD Thyroid: Thyroid normal Chest Chest palpation & inspection: normal inspection of the chest, normal palpation of entire chest wall and no tenderness Resp Effort & Inspection: normal respiratory effort Auscultation: clear to auscultation bilaterally, no crackles, no rhonchi and no wheezes Cardio Palpation: normal PMI Rate: regular rate Rhythm: regular rhythm Heart sounds: no gallops and no murmurs Peripheral pulses: Peripheral pulses 2+ throughout GI Palpation (GI): Soft to palpation, nontender, No hepatosplenomegaly present and no masses Auscultation: normal bowel sounds Back/Spine/Pelvis Thoracic/Lumbar Spine: thoracic and lumbar spine normal to inspection Skin General skin exam: no rashes or lesions noted Neuro General: patient oriented x3 and no focal motor deficits Cranial nerves: Yes CN's II-XII intact bilaterally Extrem General: Yes normal to inspection, Yes no clubbing, cyanosis or edema and Yes no calf tenderness Psych Appearance: grossly normal and well kempt Speech and movement: Normal speech and movement present Results Reviewed Results Reviewed: REPORT OF CT SCAN OF THE CHEST AT [facility] ON 08/03/2023 IS REVIEWED. 2 MM LEFT UPPER LOBE NODULE WAS NOTED. NO AORTIC ANEURYSM OR DISSECTION. HAZINESS IN THE SMALL BOWEL MESENTERIC FAT AND INCREASED NUMBER NORMAL-SIZED LYMPH NODE SUGGESTING POSSIBLE MESENTERIC PANNICULITIS. Assessment & Plan Assessment & Plan (1) Pulmonary nodule: Comment: 2 MM PULMONARY NODULE, IN A LOW RISK PATIENT ( HISTORY OF SMOKING HALF PACK A DAY FOR 19 YEARS DURING AGE [age] AND QUIT IN 1983) BASICALLY IS CONSIDERED BENIGN AND OF NO SIGNIFICANT CONCERN. Code(s): R91.1 - Solitary pulmonary nodule Category: Medical Plan: HAD A DETAILED DISCUSSION WITH THE PATIENT, EXPLAINED ABOUT THIS, AND HE UNDERSTANDS WELL. BEING A LOW RISK CASE I DO NOT THINK HE NEEDS ANY FOLLOW-UP CT SCANS. HOWEVER IF HE EVER DEVELOPS ANY PULMONARY ISSUE OR SYMPTOMS , WE WILL BE GLAD TO SEE HIM FOR FOLLOW-UP (2) Gallstones: Comment: PATIENT DISCUSSED WITH ME WHAT TO DO ABOUT CHOLELITHIASIS. AND IS IT RELATED TO THE RECURRENT EPIGASTRIC PAIN THAT HE GETS. I ADVISED HIM THAT HE SHOULD SEE A TRAFFIC RECORDER, AND MAY NEED TO HAVE UPPER ENDOSCOPY. Code(s): K80.20 - Calculus of gallbladder without cholecystitis without obstruction Category: Medical Plan: PATIENT LIVES IN [place] AGAIN HE WOULD PREFERRED TO HAVE APPOINTMENT WITH A TRAFFIC RECORDER HERE IN [place]. WE HAVE BEEN ABLE TO GET APPOINTMENT WITH HAYLEE DEWEY OF OUR GASTROENTEROLOGY DEPARTMENT, AND HE FELT VERY RELIEVED. Orders: Referrals Gastroenterology Referral K80.20 - Calculus of gallbladder without cholecystitis without obstruction Coding Level of Care Code New Pt Level 3 (35853) Diagnoses Pulmonary nodule R91.1 Gallstones K80.20
== END 2023-09-16 15:41 | disposition home or self-care (01) ==
PROVIDERS: PCP Physician Assistant; Referring Provider Physician Assistant; Visit Provider Internal Medicine
DX: R91.1 Solitary pulmonary nodule (principal); K80.20 Calculus of gallbladder without cholecystitis without obstruction
CPT/HCPCS: 99203

== ENCOUNTER → 2023-09-16 14:49 | Outpatient (BNVA) | payer OTHER, SELFPAY | PROVIDERS: PCP Physician Assistant; Referring Provider Physician Assistant; Visit Provider Internal Medicine ==

== ENCOUNTER 2023-09-23 09:47 | Outpatient (AMB) | payer OTHER, SELFPAY ==
--- NOTE | 2023-09-23 09:48 | A.OFFVIS_ITS ---
Vital Signs 09/23/23 09:50 Height 5 ft 8 in Weight 188 lb BMI 28.6 BP 113/75 Blood Pressure Location Lt brachial Position Sitting Pulse 65 Intake Visit Reasons: upper ENDO screening Intake Note: Nando presents in the office for a EGD consult. CC: States that he has been having issues with his stomach. A couple months ago it was a pain in the sternum. He states that it would happen at 2am and the first time it lasted for about 5 hours. Few nights later it occurred again and then 3/4 days after as well. It was always 2am and all he could do was walk around to make it bearable. He has Hx of heart attack - ED ruled out it was NOT his heart. Then they thought it was his gall bladder and ruled that out as well. This was at [facility] because he thought it was possibly his heart. Charge Lpn Required: No Allergies No Known Allergies Allergy (Verified 09/29/23 09:31) HPI HPI upper ENDO screening: Details: 63-year-old male here for preprocedural meeting to discuss a screening colonoscopy. He is referred by Jocelyn Hwang of [facility] primary care. PMX Coronary artery disease High cholesterol Hypertension History of NH Solitary gallstone Lumbar radiculopathy * SURGICAL HISTORY Back surgery - 2 discectomy a5t Ajit Cardiac stent x 2 arthroscopic knee surgery left * ALLERGIES: NKDA * [employer] LABS: Laboratory Tests 09/26/22 12/24/22 10:26 15:37 WBC 4.8 Hgb 14.6 Hct 42.3 Plt Count 148 L Estimated GFR > 60 Total Bilirubin 1.2 H AST 32 ALT 37 Alkaline Phosphatase 51 TSH 1.39 Review of [facility] notes and imaging LABS: 07/2023 CBC shows no white count and no anemia but he does have mild thrombocytopenia of 148,000 which appears chronic since 2021. Bilirubin and transaminases are normal as is his renal function and his alk-phos is also normal. AN H PYLORI BREATH TEST 08/[address] angio of the abdomen 07/2023 IMPRESSION: 1. No aortic aneurysm or dissection. 2. Haziness in the small bowel mesenteric fat and increased number of normal-sized lymph nodes, suggesting mesenteric panniculitis. 3. 2 mm left upper lobe nodule. If low risk for malignancy, no routine follow-up. If high risk, optional CT at 12 months. If unchanged, no further follow-up needed per Guidelines for Management of Incidental Pulmonary Nodules Detected on CT Images: From the Fleischner Society 2017. Additional chronic incidental findings as detailed above. HIDA SCAN 07/2023 ESULT: NM HIDA Scan W/O Ejection Fraction Exam: NM Hepatobiliary scan History: Abdominal pain. Technique: The patient was injected intravenously with 8.7 mCi of Tc99m Mebrofenin and dynamic imaging of the upper abdomen in the anterior view was obtained for 1 hour. Delayed images were obtained at 5 hours. Comparison studies: Correlation is made with an abdominal ultrasound dated 08/03/2023. Findings: There is prompt hepatic flow, uptake and excretion. By one hour, there is normal visualization of the common duct and small bowel, however gallbladder is not visualized. Delayed images obtained 5 hours later show radiotracer uptake within the gallbladder, thus ruling out cystic duct obstruction. Impression: No scintigraphic evidence for acute cholecystitis. ULTRASOUND OF THE RIGHT UPPER QUADRANT FINDINGS: Liver: Normal in size and echotexture. No focal lesion. Smooth hepatic contour. Main portal vein patent with normal hepatopetal direction of flow. Gallbladder: Solitary mobile gallstone measuring 1.4 cm. Normal wall thickness. No pericholecystic fluid. Negative Canales sign. Biliary Tree: No intrahepatic bile duct dilation is identified. Common duct could not be visualized. Pancreas: Obscured by overlying bowel gas. Right kidney: 11.4 cm in length. Normal parenchymal echotexture and thickness. No hydronephrosis, stone or mass. IMPRESSION: Cholelithiasis without evidence of acute cholecystitis. TODAY'S VISIT A few mos ago, he woke up at 2am with a severe pain at the end of my sternum. He had some nausea/dry heaves but no severe (he has had a prior NH and it did not feel like this). At one time it lasted for 12 hours. He presented to the [facility] ER and it was not cardiac. They did an US and some other imaging for GB and he was told he had a stone in the GB. He was admitted, then they said it might be an ulcer and he needed an EGD , but they would not do it as an in patient. He left A[facility] because they had no plans to do any other testing. He was scheduled to see [facility] but they could not see him until . He tried eating bland foods but he still had another attacks. He has been sucking on ice chips and this does seem to soothe his symptoms somewhat. He was talking to a nurse friend who suggest that he may have a hiatal hernia. I review CT from [facility] and it showed haziness of root of mesentary small bowel ? mesenteric panniculitis. Something to consider. He had an negative HP breath test. He dislikes pills so for now we are going to try having him take a quarter to a 1/2 tsp of baking soda 3 times a day as long with his ice to keep to symptoms in check. I did explain to him that long-term studies have not borne out severe problems with low dose PPI but will wait to see what the endoscopy shows to see how much I really need to push this agenda. ROV 4 weeks. [facility] Medical History (Updated 09/23/23 @ 10:42 by JANA Rust) Solitary pulmonary nodule Hypercholesterolemia Hypertension Myocardial infarct, old Pelvic pain in male COVID-19 Surgical History (Updated 09/29/23 @ 09:33 by Mitra George RN) Hx of colonoscopy Hx of heart artery stent Previous back surgery Family History (Updated 09/23/23 @ 10:15 by RAINER Soto) Mother Skin cancer Father CAD (coronary artery disease) Paternal Grandfather Cancer Social History Housing: House Alcohol intake: current Alcohol intake frequency: holidays/special occasions only Alcohol type: wine Patient Tobacco Use Status: Former Tobacco user e-Cigarette/Vaping Use: Never Used Second Hand Smoke Exposure: No Substance Use Type: Marijuana service: No Current occupational status: employed 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 Current occupational exposures/hazards: No Cognitive needs: No Hearing needs: No Vision needs: Yes (reading glasses) Review of Systems Const Denies fatigue, Denies fever(s), Denies night sweats, Denies poor appetite and Denies weight loss ENT Reports Normal hearing present, Denies dental pain, Denies dysphagia, Denies hearing loss, Denies mouth pain, Denies odynophagia, Denies throat swelling, Denies tongue swelling and Reports other (Dentition adequate) Card Reports chest pain Resp Reports no additional complaints GI Details: Denies abdominal pain, Denies melena, Denies bloating, Denies hematochezia, Denies constipation, Denies GI cramping, Denies dysphagia, Denies excessive flatus, Denies early satiety, Reports heartburn, Denies diarrhea, Denies nausea, Denies odynophagia, Denies vomiting and Denies hematemesis Skin/Breast Denies pruritus, Denies lesions, Denies rash and Denies jaundice Neuro Reports Normal hearing present and Denies Abnormal speech present Endo Denies fatigue Aller/Immun Denies throat swelling and Denies tongue swelling Physical Exam Vital Signs: Last Vital Signs Pulse 65 09/23/23 09:50 BP 113/75 09/23/23 09:50 BMI result Body Mass Index 28.6 Const General: cooperative, no acute distress, well developed and well groomed Nutritional Appearance: well nourished and overweight Orientation/consciousness: oriented to person, oriented to place and oriented to time Limitations: No language barrier HEENT Head: Yes normocephalic and Yes atraumatic Eyes General: appearance normal, both eyes and all related structures Pupils: Equal, round and reactive pupils present Neck Neck: Yes normal visual inspection and Yes no lymphadenopathy Thyroid: Thyroid normal Resp Effort & Inspection: normal respiratory effort and able to speak in complete sentences Auscultation: clear to auscultation bilaterally Cardio Rate: regular rate Rhythm: regular rhythm Heart sounds: Normal, physiologic split S2 sound present Peripheral pulses: radial pulses present and posterior tibial pulses present GI Inspection: No distended and No Abdominal panniculus present Palpation (GI): Soft to palpation, nontender, no guarding, not rigid and No hepatosplenomegaly present Percussion: Yes normal to percussion Auscultation: normal bowel sounds Rectal Exam - Male: Yes deferred Skin General skin exam: no rashes or lesions noted, turgor normal, skin not dry, no jaundice, No spider nevi and no striae Rashes: no rashes Nails: normal Neuro General: oriented to person, oriented to place and oriented to time Cranial nerves: Yes Equal, round and reactive pupils present and Yes Normal hearing present Speech: No Abnormal speech present Extrem General: Yes normal to inspection, No clubbing, No cyanosis and No edema Psych Appearance: grossly normal and well kempt Mental Status: mental status grossly normal Speech and movement: Normal speech and movement present Affect: normal affect Attitude: cooperative Thought process: Normal thought process present and not confabulating Thought content: Normal thought content present Insight: Fair insight present (Psych) Judgement: Fair judgement present (Psych) Assessment & Plan Assessment & Plan (1) Epigastric pain: Code(s): R10.13 - Epigastric pain Category: Medical Plan A few mos ago, he woke up at 2am with a severe pain at the end of my sternum. He had some nausea/dry heaves but no severe (he has had a prior NH and it did not feel like this). At one time it lasted for 12 hours. He presented to the [facility] ER and it was not cardiac. They did an US and some other imaging for GB and he was told he had a stone in the GB. He was admitted, then they said it might be an ulcer and he needed an EGD , but they would not do it as an in patient. He left [facility] because they had no plans to do any other testing. He was scheduled to see [facility] but they could not see him until . He tried eating bland foods but he still had another attacks. He has been sucking on ice chips and this does seem to soothe his symptoms somewhat. He was talking to a nurse friend who suggest that he may have a hiatal hernia. I review CT from [facility] and it showed haziness of root of mesentary small bowel ? mesenteric panniculitis. Something to consider. He had an negative HP breath test. He dislikes pills so for now we are going to try having him take a quarter to a 1/2 tsp of baking soda 3 times a day as long with his ice to keep to symptoms in check. I did explain to him that long-term studies have not borne out severe problems with low dose PPI but will wait to see what the endoscopy shows to see how much I really need to push this agenda. ROV 4 weeks. Orders: Orders EGD with [facility] - GI Use Only 09/23/23 R10.13 - Epigastric pain Coding Level of Care Code New Pt Level 3 (49282) Diagnoses Epigastric pain R10.13
[2023-09-23 09:50] VITALS: BP 113/75; PULSE 65; BMI 28.6
== END 2023-09-23 10:58 | disposition home or self-care (01) ==
PROVIDERS: PCP Physician Assistant; Visit Provider Nurse Practitioner
DX: R10.13 Epigastric pain (principal)
CPT/HCPCS: 99203

== ENCOUNTER → 2023-09-23 09:47 | Outpatient (BNVA) | payer OTHER, SELFPAY | PROVIDERS: PCP Physician Assistant; Visit Provider Nurse Practitioner ==

== ENCOUNTER 2023-09-29 08:29 | Day surgery (SDC) | payer OTHER, SELFPAY ==
--- NOTE | 2023-09-28 11:56 | P.CONAN_ITS ---
Documented by User: Sheryl Branham NP 09/28/23 11:58 HPI - Anesthesia Eval Consult details Narrative: 63yo M for Upper Endoscopy CAD s/p stent 2009 -> in-stent restenosis 2021 with DANIELLE Stable at 12/2022 cardiac office visit with 1 yr f/u [facility] Active Problems Active Problems: All Active Problems Epigastric pain (Acute) Pulmonary nodule (Acute) Gallstones (Acute) Right upper quadrant abdominal pain (Acute) Bronchitis (Acute) Screening for prostate cancer (Acute) Hip pain, left (Acute) Lumbar radiculopathy, acute (Acute) Low back pain (Acute) HTN (hypertension) (Acute) Colon cancer screening (Acute) Elevated blood pressure reading (Acute) Leukopenia (Acute) CAD (coronary artery disease) (Acute) Annual physical exam (Acute) Past Medical History Medical History (Updated 09/23/23 @ 10:42 by JANA Rust) Solitary pulmonary nodule Hypercholesterolemia Hypertension Myocardial infarct, old Pelvic pain in male COVID-19 Family History Family History (Updated 09/23/23 @ 10:15 by RAINER Soto) Mother Skin cancer Father CAD (coronary artery disease) Paternal Grandfather Cancer Surgical History Surgical History (Updated 09/29/23 @ 09:33 by Mitra George RN) Hx of colonoscopy Hx of heart artery stent Previous back surgery Social History Social History Housing: House Alcohol intake: current Alcohol intake frequency: holidays/special occasions only Alcohol type: wine Patient Tobacco Use Status: Former Tobacco user e-Cigarette/Vaping Use: Never Used Second Hand Smoke Exposure: No Use of substances other than those prescribed or required for medical reasons: No Substance Use Type: Marijuana Are you DNR?: No Advance Directives: No Advance Directives Information Provided: Yes service: No Current occupational status: employed 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 Current occupational exposures/hazards: No Cognitive needs: No Hearing needs: No Vision needs: Yes (reading glasses) Meds Allergies Allergy/AdvReac Type Severity Reaction Status Date / Time No Known Allergies Allergy Verified 09/29/23 09:31 Home Medications ?Medication ?Instructions ?Recorded ?Confirmed ?Last Taken ?Type aspirin 81 mg tablet,delayed 81 mg PO DAILY 11/28/21 09/29/23 Unknown History release lisinopril 10 mg tablet 10 mg PO DAILY 11/28/21 09/29/23 Unknown History Assessment and Plan Assessment Anesthesia Assessment: Chart Reviewed Documented by User: Isaura Fulton MD 09/29/23 10:12 [facility] Past Medical History Medical History (Updated 09/23/23 @ 10:42 by JANA Rust) Solitary pulmonary nodule Hypercholesterolemia Hypertension Myocardial infarct, old Pelvic pain in male COVID-19 Family History Family History (Updated 09/23/23 @ 10:15 by RAINER Soto) Mother Skin cancer Father CAD (coronary artery disease) Paternal Grandfather Cancer Family history of problems with anesthesia: No Surgical History Surgical History (Updated 09/29/23 @ 09:33 by Mitra George RN) Hx of colonoscopy Hx of heart artery stent Previous back surgery History of Problems with Anesthesia: No Social History Social History Housing: House Alcohol intake: current Alcohol intake frequency: holidays/special occasions only Alcohol type: wine Patient Tobacco Use Status: Former Tobacco user e-Cigarette/Vaping Use: Never Used Second Hand Smoke Exposure: No Use of substances other than those prescribed or required for medical reasons: No Substance Use Type: Marijuana Are you DNR?: No Advance Directives: No Advance Directives Information Provided: Yes service: No Current occupational status: employed 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 Current occupational exposures/hazards: No Cognitive needs: No Hearing needs: No Vision needs: Yes (reading glasses) Meds Allergies Allergy/AdvReac Type Severity Reaction Status Date / Time No Known Allergies Allergy Verified 09/29/23 09:31 Home Medications ?Medication ?Instructions ?Recorded ?Confirmed ?Last Taken ?Type aspirin 81 mg tablet,delayed 81 mg PO DAILY 11/28/21 09/29/23 Unknown History release lisinopril 10 mg tablet 10 mg PO DAILY 09/22/22 07/23/24 Unknown History Exam Airway Mallampati Class: III TM Dist: >3cm Neck ROM: Full Assessment and Plan Assessment Anesthesia Assessment: Anesthesia Plan Discussed Final Anesthetic Review Family History of Problems with Anesthesia: No History of Problems with Anesthesia: No NPO: Yes ASA Class: III Final Preanesthetic Review: No Changes in Pt Med Stat, Meds/Allgs Chart Reviewed, Consent Obtained/Reviewed and Anes Risks/Benef Reviewed Patient Risk: Intermediate Procedure Risk: Low Anesthetic Plan Disposition: Standard PACU
[2023-09-29 09:34] VITALS: BP 111/69; PULSE 51; RESP 18; TEMP 36.3; O2SAT 98; BMI 29.5
--- NOTE | 2023-09-29 09:43 | MHC.SHP ---
Pre-Procedural Eval Section A - 24 Hr Update-Section A only Date of Service: 09/29/23 Section B - Complete if H&P > 30 days Chief Complaint: Epigastric pain Relevant Family History (Specify if Yes): No Relevant Social History: None Present Medications: see Short Stay Collaborative assessment Medical History: Significant History ( Solitary pulmonary nodule Hypercholesterolemia Hypertension Myocardial infarct, old Pelvic pain in male COVID-19) History of Previous Operations: Relevant previous surgery/procedure and date(s) ( Hx of colonoscopy Hx of heart artery stent Previous back surgery) Allergies: Allergies Allergy/AdvReac Type Severity Reaction Status Date / Time No Known Allergies Allergy Verified 09/29/23 09:31 Review of Systems Sugical H&P ROS: Negative: Constitution, Cardiovascular, Respiratory, Neurological, Psychiatric, Hem-Onc, Allergic/Immunologic, Gastrointestinal, Genitourinary, Musculoskeletal, Integumentary, Endocrine and Eyes/Ears/Nose/Throat Exam Surgical H&P Exam: Normal: HEENT, Normal: Heart, Normal: Lungs, Normal: Extremities, Normal: Abdomen, Normal: Skin and Normal: Neurological Plan Diagnosis/Plan: Unchanged I have reviewed the history and physical and performed a pertinent physical examination on my patient. No changes have occurred unless specified. Time Spent With Patient Time: Total time managing care of this patient today ____ minutes.
[2023-09-29] MEDS: Lactated Ringers 1,000 ML 100 ML IVCONT (09:55)
--- NOTE | 2023-09-29 10:40 | P.OP_ITS ---
Operative Note Operative Note Date of Service: 09/29/23 Narrative: Procedure Description: EGD Indication: epigastric pain and retrosternal discomfort Anesthesia: MAC FLEXIBLE TRANSORAL UPPER GASTROINTESTINAL ENDOSCOPY UPPER ENDOSCOPY Consent: Indications for the procedure and potential complications of bleeding, perforation, reaction to medications and missed diagnosis were discussed with the patient and informed consent was obtained. Instrument: Olympus GIF H 190 J mid size upper endoscope Monitoring: Vital signs and clinical assessment, continuous EKG monitoring, Pulse oximetry, Carbon Dioxide monitoring and blood pressure monitoring were done throughout the procedure. Procedure: The patient was placed in the left lateral decubitis position and pre-procedure medications were administered and a bite block was placed. The endoscope was inserted into the mouth and advanced under direct vision to the third part of duodenum. A careful inspection was made as the upper endoscope was withdrawn including a retroflexed examination of the proximal stomach; Findings and interventions are described below. Findings: Larynx:normal Esophagus: GE junction at 40 cm, diaphragm hiatus at 40 cm, bogginess and eryth rubina at GEJ with small erosive streak seen, bx taken from GEJ, distal and proximal Stomach: normal mucosa . Biopsies were obtained. Grade 2 flap valve on retroflexed examination of the cardia. Duodenum: Normal bulb and descending duodenum, Intervention: Biopsies as noted above, Impression/Findings: erosive esophagitis PLAN: commence low dose PPI GERD precautions
[2023-09-29 10:47] VITALS: BP 100/62; PULSE 75; RESP 18; TEMP 36.7; O2SAT 98
[2023-09-29 11:02] VITALS: BP 120/75; PULSE 51; RESP 16; TEMP 36.6; O2SAT 96
== END 2023-09-29 11:27 | disposition home or self-care (01) ==
PROVIDERS: PCP Physician Assistant; Visit Provider Internal Medicine Gastroenterology
PROC: 0DJ08ZZ Inspection of Upper Intestinal Tract, Via Natural or Artificial Opening Endoscopic (ICD-10-PCS; CPT 43235; principal; 2023-09-29 10:40)
DX: R10.13 Epigastric pain (principal); R07.2 Precordial pain; K29.50 Unspecified chronic gastritis without bleeding; K29.80 Duodenitis without bleeding; K20.90 Esophagitis, unspecified without bleeding; K44.9 Diaphragmatic hernia without obstruction or gangrene; I10 Essential (primary) hypertension; E78.00 Pure hypercholesterolemia, unspecified; I25.2 Old myocardial infarction; R91.1 Solitary pulmonary nodule
CPT/HCPCS: 43239; 88300; 88305; 88313; J2704

== ENCOUNTER → 2023-09-29 08:29 | Outpatient (BNV) | payer OTHER, SELFPAY | PROVIDERS: PCP Physician Assistant; Visit Provider Internal Medicine Gastroenterology | DX: K20.90 Esophagitis, unspecified without bleeding (principal) | CPT/HCPCS: 43239 ==

== ENCOUNTER 2023-10-23 10:03 | Outpatient (AMB) | payer OTHER, SELFPAY ==
--- NOTE | 2023-10-23 10:14 | A.OFFVIS_ITS ---
Vital Signs 10/23/23 10:15 Height 5 ft 7.5 in Weight 193 lb 1.999 oz BMI 29.8 BP 108/69 Blood Pressure Location Rt brachial Position Sitting Pulse 62 Intake Visit Reasons: s/p EGD Intake Note: Nando returns to in office follow up s/p EGD. CC: Patient reports doing well and not having any episodes since his last visit here. 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 He had some nausea/dry heaves but no severe (he has had a prior NM and it did not feel like this). At one time it lasted for 12 hours. He presented to the [facility] ER and it was not cardiac. They did an US and some other imaging for GB and he was told he had a stone in the GB. He was admitted, then they said it might be an ulcer and he needed an EGD , but they would not do it as an in patient. He left AMA because they had no plans to do any other testing. He was scheduled to see [facility] Gastro but they could not see him until . He tried eating bland foods but he still had another attacks. He has been sucking on ice chips and this does seem to soothe his symptoms somewhat. He was talking to a nurse friend who suggest that he may have a hiatal hernia. 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 Something to consider. He had an negative HP breath test. He dislikes pills so for now we are going to try having him take a quarter to a 1/2 tsp of baking soda 3 times a day as long with his ice to keep to symptoms in check. I did explain to him that long-term studies have not borne out severe problems with low dose PPI but will wait to see what the endoscopy shows to see how much I really need to push this agenda. ROV 4 weeks. Orders: Orders EGD with [facility] - GI Use Only 09/23/23 R10.13 - Epigastric pain EGD 09/29/23 Findings: Larynx:normal Esophagus: GE junction at 40 cm, diaphragm hiatus at 40 cm, bogginess and erythema at GEJ with small erosive streak seen, bx taken from GEJ, distal and proximal Stomach: normal mucosa . Biopsies were obtained. Grade 2 flap valve on retroflexed examination of the cardia. Duodenum: Normal bulb and descending duodenum, Intervention: Biopsies as noted above, Impression/Findings: erosive esophagitis PLAN: commence low dose PPI GERD precautions Biopsy Received: 09/29/23 Diagnosis A. Duodenum, biopsy: Chronic inactive duodenitis. B. Stomach, biopsy: Antral-type and oxyntic mucosa with mild chronic inactive inflammation; no Helicobacter organisms seen. C. GE junction, biopsy: - Cardiofundic-type mucosa with mild chronic inactive inflammation; no intestinal metaplasia seen. - Squamous mucosa within normal limits. D. Esophagus, distal, biopsy: No tissue present. E. Esophagus, proximal, biopsy: Squamous epithelium within normal limits; no inflammation seen TODAY'S VISIT He tolerated the procedure well. Got off of the baking soda r/t [employer] visiting and business. Commits to getting back on. I educate him about possibility of esophageal cancer with prolonged irritation. We will re scope him in 1 year to assess healing. He really wants to do every thing possible to avoid taking a pill. ROV 6 mos. [facility] Medical History Right upper quadrant abdominal pain Lumbar radiculopathy, acute Low back pain Annual physical exam Colon cancer screening Bronchitis Screening for prostate cancer Solitary pulmonary nodule Hypercholesterolemia Hypertension Myocardial infarct, old Pelvic pain in male COVID-19 Surgical History Hx of colonoscopy Hx of heart artery stent Previous back surgery Family History Mother Skin cancer Father CAD (coronary artery disease) Paternal Grandfather Cancer Social History Housing: House Alcohol intake: current Alcohol intake frequency: holidays/special occasions only Alcohol type: wine Patient Tobacco Use Status: Former Tobacco user e-Cigarette/Vaping Use: Never Used Second Hand Smoke Exposure: No Substance Use Type: Marijuana service: No Current occupational status: employed 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 [employer] Current occupational exposures/hazards: No Cognitive needs: No Hearing needs: No Vision needs: Yes (reading glasses) Review of Systems Const Denies fatigue, Denies fever(s), Denies night sweats, Denies poor appetite and Denies weight loss ENT Reports Normal hearing present, Denies dental pain, Denies dysphagia, Denies hearing loss, Denies mouth pain, Denies odynophagia, Denies throat swelling, Denies tongue swelling and Reports other (Dentition adequate) Card Reports no additional complaints Resp Reports no additional complaints GI Details: Reports abdominal pain, Denies melena, Denies bloating, Denies hematochezia, Denies constipation, Denies GI cramping, Denies dysphagia, Denies excessive flatus, Denies early satiety, Reports heartburn, Denies diarrhea, Denies nausea, Denies odynophagia, Denies vomiting and Denies hematemesis Skin/Breast Denies pruritus, Denies lesions, Denies rash and Denies jaundice Neuro Reports Normal hearing present and Denies Abnormal speech present Endo Denies fatigue Aller/Immun Denies throat swelling and Denies tongue swelling Physical Exam Vital Signs: Last Vital Signs Pulse 62 10/23/23 10:15 BP 108/69 10/23/23 10:15 BMI result Body Mass Index 29.8 Const General: cooperative, no acute distress, well developed and well groomed Nutritional Appearance: well nourished and obese Orientation/consciousness: oriented to person, oriented to place and oriented to time Limitations: No language barrier HEENT Head: Yes normocephalic and Yes atraumatic Eyes General: appearance normal, both eyes and all related structures Pupils: Equal, round and reactive pupils present Neck Neck: Yes normal visual inspection and Yes no lymphadenopathy Thyroid: Thyroid normal Resp Effort & Inspection: normal respiratory effort and able to speak in complete sentences Auscultation: clear to auscultation bilaterally Cardio Rate: regular rate Rhythm: regular rhythm Heart sounds: Normal, physiologic split S2 sound present Peripheral pulses: radial pulses present and posterior tibial pulses present GI Inspection: No distended, No Abdominal panniculus present and Yes obesity Palpation (GI): Soft to palpation, nontender, no guarding, not rigid and No hepatosplenomegaly present Percussion: Yes normal to percussion Auscultation: normal bowel sounds Rectal Exam - Male: Yes deferred Skin General skin exam: no rashes or lesions noted, turgor normal, skin not dry, no jaundice, No spider nevi and no striae Rashes: no rashes Nails: normal Neuro General: oriented to person, oriented to place and oriented to time Cranial nerves: Yes Equal, round and reactive pupils present and Yes Normal hearing present Speech: No Abnormal speech present Extrem General: Yes normal to inspection, No clubbing, No cyanosis and No edema Psych Appearance: grossly normal and well kempt Mental Status: mental status grossly normal Speech and movement: Normal speech and movement present Affect: normal affect Attitude: cooperative Thought process: Normal thought process present and not confabulating Thought content: Normal thought content present Insight: Fair insight present (Psych) Judgement: Fair judgement present (Psych) Results Reviewed Results Reviewed: EGD 09/29/23 Findings: Larynx:normal Esophagus: GE junction at 40 cm, diaphragm hiatus at 40 cm, bogginess and erythema at GEJ with small erosive streak seen, bx taken from GEJ, distal and proximal Stomach: normal mucosa . Biopsies were obtained. Grade 2 flap valve on retroflexed examination of the cardia. Duodenum: Normal bulb and descending duodenum, Intervention: Biopsies as noted above, Impression/Findings: erosive esophagitis PLAN: commence low dose PPI GERD precautions Biopsy Received: 09/29/23 Diagnosis A. Duodenum, biopsy: Chronic inactive duodenitis. B. Stomach, biopsy: Antral-type and oxyntic mucosa with mild chronic inactive inflammation; no Helicobacter organisms seen. C. GE junction, biopsy: - Cardiofundic-type mucosa with mild chronic inactive inflammation; no intestinal metaplasia seen. - Squamous mucosa within normal limits. D. Esophagus, distal, biopsy: No tissue present. E. Esophagus, proximal, biopsy: Squamous epithelium within normal limits; no inflammation seen Assessment & Plan Assessment & Plan (1) Erosive esophagitis: Code(s): K22.10 - Ulcer of esophagus without bleeding Category: Medical (2) Epigastric pain: Code(s): R10.13 - Epigastric pain Category: Medical Plan He tolerated the procedure well. Got off of the baking soda r/t grandkids visiting and business. Commits to getting back on. I educate him about p ossibility of esophageal cancer with prolonged irritation. We will re scope him in 1 year to assess healing. He really wants to do every thing possible to avoid taking a pill. ROV 6 mos. Coding Level of Care Code Est Pt Level 3 (14655) Diagnoses Erosive esophagitis K22.10 Epigastric pain R10.13
[2023-10-23 10:15] VITALS: BP 108/69; PULSE 62; BMI 29.8
== END 2023-10-23 10:43 | disposition home or self-care (01) ==
PROVIDERS: PCP Physician Assistant; Visit Provider Nurse Practitioner
DX: K22.10 Ulcer of esophagus without bleeding (principal); R10.13 Epigastric pain
CPT/HCPCS: 99213

== ENCOUNTER → 2023-10-23 10:03 | Outpatient (BNVA) | payer OTHER, SELFPAY | PROVIDERS: PCP Physician Assistant; Visit Provider Nurse Practitioner ==

== ENCOUNTER 2023-12-30 08:19 | Outpatient (REF) | payer OTHER, SELFPAY ==
[2023-12-30 10:31] LABS: Hematocrit 43.4 % (42.0-52.0); Hemoglobin 15.1 g/dl (14.0-18.0); Mean Corpuscular HGB Conc 34.8 g/dl (31.0-36.0); Mean Corpuscular Hemoglobin 32.5 pg (27.0-33.0); Mean Corpuscular Volume 93.3 fL (80.0-98.0); Mean Platelet Volume 9.8 fL (9.4-12.4); Platelet Count 156 X10*3/uL (160-400); Red Blood Count 4.65 X10*6/uL (4.60-5.80); Red Cell Distribution Width 13.2 % (11.0-16.0); White Blood Count 4.4 X10*3/uL (4.8-10.8)
[2023-12-30 11:16] LABS: Creatinine Urine 188.47 mg/dL; Microalbum/Creatinine Ratio Ur 3.7 ug/mg cr (<30)
[2023-12-30 11:28] LABS: Alanine Aminotransferase 62 U/L (0-40); Albumin Level 4.2 g/dL (3.5-5.0); Alkaline Phosphatase 60 U/L (39-117); Anion Gap 12 (12-20); Aspartate Amino Transferase 39 U/L (5-37); Bilirubin Total 0.7 mg/dL (0.0-1.0); Blood Urea Nitrogen 18 mg/dL (9-16); Calcium 9.2 mg/dL (8.4-10.2); Carbon Dioxide 29 mmol/L (22-29); Chloride 107 mmol/L (96-108); Cholesterol 87 mg/dL (<200); Estimated Glomerular Filt Rate > 60; Glucose Fasting 99 mg/dL (60-99); HDL Cholesterol 36 mg/dL (>40); LDL Cholesterol Calculated 44 mg/dL (<100); Potassium 4.6 mmol/L (3.3-5.1); Sodium 143 mmol/L (135-145); Triglycerides 36 mg/dL (<150)
[2023-12-30 11:41] LABS: Prostate Specific Antigen Scr 1.31 ng/mL (<0.05-4.0)
== END 2023-12-30 08:20 | disposition home or self-care (01) ==
LOC: HO.LAB 08:19
PROVIDERS: PCP Physician Assistant; Visit Provider Physician Assistant
DX: I25.10 Atherosclerotic heart disease of native coronary artery without angina pectoris (principal); Z12.5 Encounter for screening for malignant neoplasm of prostate
CPT/HCPCS: 36415; 80053; 80061; 82043; 82570; 84153; 85027; 96127

== ENCOUNTER 2023-12-30 08:19 | Outpatient (AMB) | payer OTHER, SELFPAY ==
--- NOTE | 2023-12-30 08:38 | A.OFFPC_ITS ---
Vital Signs 12/30/23 08:39 Height 5 ft 7.5 in Weight 189 lb 2 oz BMI 29.2 BP 110/70 Blood Pressure Location Lt brachial Position Sitting Pulse 63 Pulse Source Pulse Oximeter Pulse Oximetry (%) 97 Oxygen Delivery Method Room Air Intake Visit Reasons: Annual Exam Intake Note: Patient is here today for a physical. Pt decline flu shot today. Microsoft Developer Required: No Director Regulatory Affairs: Not Required per policy Accompanied by: Self / Same As Patient Allergies No Known Allergies Allergy (Verified 12/30/23 08:50) Medication List - Last Reconciled 12/30/23 by Garry Rendon PA-C aspirin 81 mg PO DAILY atorvastatin 40 mg PO DAILY lisinopril 10 mg PO DAILY Tobacco use date assessed: 12/30/23 Fall risk assessment: No Falls in past year Last assessed Fall Risk: 12/30/23 Dental Screening Dental Screen Date: 12/30/23 Did you have a dental visit in the last 12 months?: Yes Did you have a dental problem in the last 6 months where you did not have access to dental care?: No Was dental information given to patient?: Patient has dentist HPI Annual Exam HPI Details Patient is a 63-year-old male here today for a routine annual physical. Patient has a past medical history significant for coronary artery disease with drug-eluting stent in 2009, HTN, hyperlipidemia. .. Coronary artery disease: Patient followed by cardiology and Deputy, Patient did have coronary stenting in 2009, Was advised to stay on high potency statin to keep below 70 optimally. .. GERD: Has followed up with [facility] and did get an endoscopy showing inactive gastritis. Does not use any antacid medication though does donation specialist crushed ice when he gets epigastric pain which resolves his symptoms. .. HTN: Has been monitoring BP at home 120- 130s systolic . Blood pressure acceptable today in office He has stopped metoprolol due to low heart rates. A otherwise he denies any chest discomforts, shortness of breath, headaches or dizziness. Colorectal cancer screening: done at [facility] years ago, Did cologaurd in 2023 which was negative- Will try to get records from [facility] Vaccines: Declines COVID vacc and flu vaccine. Declines PCV , Need Tdap- declines PFSH Medical History (Updated 12/30/23 @ 09:00 by Garry Rendon PA-C) Annual physical exam Right upper quadrant abdominal pain Lumbar radiculopathy, acute Low back pain Colon cancer screening Bronchitis Screening for prostate cancer Solitary pulmonary nodule Hypercholesterolemia Hypertension Myocardial infarct, old Pelvic pain in male COVID-19 Surgical History Hx of colonoscopy Hx of heart artery stent Previous back surgery Family History Mother Skin cancer Father CAD (coronary artery disease) Paternal Grandfather Cancer Social History (Updated 12/30/23 @ 08:56 by Garry Rendon PA-C) Housing: House Alcohol intake: current Alcohol intake frequency: holidays/special occasions only Alcohol type: wine Patient Tobacco Use Status: Former Tobacco user e-Cigarette/Vaping Use: Never Used Second Hand Smoke Exposure: Yes Substance Use Type: Marijuana service: No Current occupational status: employed 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 1. Little interest or pleasure in doing things: not at all 2. Feeling down, depressed, or hopeless: not at all 3. Trouble falling or staying asleep, or sleeping too much: not at all 4. Feeling tired or having little energy: not at all 5. Poor appetite or overeating: not at all 6. Feeling bad about yourself - or that you are a failure or have let yourself or your family down: not at all 7. Trouble concentrating on things, such as reading the newspaper or watching television: not at all 8. Moving or speaking so slowly that other people could have noticed. Or the opposite - being so fidgety or restless that you have been moving around a lot more than usual: not at all 9. Thoughts that you would be better off or of hurting yourself in some way: not at all Total score: 0 Depression Screening Interpretation: Negative Depression Screening Done: Yes 17924 - PHQ-9 Billing: Yes Source: Developed by Drs. Terry Mckeon, Denise Enrique, Nacho Laboy and colleagues, with an educational erika from [employer]. Thrive Questionnaire Date Thrive assessed: 12/30/23 I am a: Patient What is your living situation today?: I have a steady place to live Within the past 12 months, did the food you bought not last and you didn't have the money to get more?: Never true Within the past 12 months, did you worry whether your food would run out before you got money to buy more?: Never true Do you have trouble paying for medicines?: No Do you have trouble getting transportation to medical appointments?: No Do you have trouble paying your heating and electricity bill?: Yes Do you have trouble taking care of your child, family member or friend?: No Do you have trouble with day-to-day activities such as bathing, preparing meals, shopping, managing finances, etc.?: I choose not to answer this question Are you currently unemployed and looking for a job?: I choose not to answer this question Are you interested in more education?: I choose not to answer this question Please select the resources that you would like help with: None Currently or been in a relationship where the following occur: I choose not to answer THRIVE Score: 1 AUDIT C Alcohol Use Questionnaire (AUDIT-C) 1. How often do you have a drink containing alcohol?: 2-4 times a month Total Score: 2 EB-7 AMB Questionnaire EB-7 Date EB - 7 assessed: 12/30/23 Feeling nervous, anxious, or on edge: 0 = Not at all Not being able to stop or control worryin = Not at all Worrying too much about different things: 0 = Not at all Trouble relaxin = Not at all Being so restless that it is hard to sit still: 0 = Not at all Becoming easily annoyed or irritable: 0 = Not at all Feeling afraid as if something awful might happen: 0 = Not at all Total EB-7 score (0-4 normal; 5-9 mild; 10-14 moderate; 15-21 severe): 0 Source: Developed by Drs. Terry Mckeon, Denise Enrique, Nacho Laboy and colleagues, with an educational erika from [employer]. EB-7 Assessment Billing EB-7 Assessment Tool: EB-7 Assessment 98443 Review of Systems Const Denies body aches, Denies chills, Denies excessive sweating, Denies fatigue, Denies fever(s) and Denies headache(s) Eyes Denies blurry vision ENT Denies dysphagia, Denies vertigo, Denies dizziness, Denies headache(s), Denies hearing loss and Denies tinnitus Card Denies chest pain, Denies chest pain with activity, Denies syncope, Denies irregular heart rhythm and Denies dyspnea Resp Denies chest congestion, Denies cough, Denies hemoptysis, Denies dyspnea and Denies wheezing GI Denies abdominal pain, Denies melena, Denies hematochezia, Denies coffee ground emesis, Denies dysphagia, Denies diarrhea, Denies nausea and Denies vomiting Denies difficulty urinating, Denies dysuria, Denies urinary frequency, Denies urinary hesitancy and Denies urinary urgency Musc Denies arthralgias, Denies limited range of motion, Denies muscle cramps and Denies muscle weakness Skin/Breast Denies rash and Denies skin ulcer Neuro Denies Abnormal speech present, Denies confusion, Denies vertigo, Denies dizziness, Denies syncope, Denies headache(s), Denies memory loss and Denies seizure-like activity Psych Denies anxiety, Denies confusion, Denies depression, Denies memory loss, Denies panic attacks and Denies paranoia Endo Denies excessive sweating, Denies fatigue, Denies flushing, Denies polydipsia and Denies polyuria Aller/Immun Denies wheezing Physical exam (Primary Care) Vital Signs: Last Vital Signs Pulse 63 12/30/23 08:39 BP 110/70 12/30/23 08:39 Pulse Ox 97 12/30/23 08:39 Oxygen Delivery Method Room Air 12/30/23 08:39 BMI result Body Mass Index 29.2 Tobacco/Smoking Status: Tobacco use Status Tobacco use date assessed 12/30/23 12/30/23 08:44 Patient Tobacco Use Status Former Tobacco user 12/30/23 08:56 e-Cigarette/Vaping Use Never Used 12/30/23 08:56 PHQ-9: PHQ-9 Score PHQ-9: Total score 0 12/30/23 10:01 Depression Screening Interpretation: Negative Thrive Assessment: Date of Thrive Assessment Date Thrive assessed 12/30/23 12/30/23 08:44 Currently or been in a relationship where the following occur: I choose not to answer Const General: cooperative, comfortable, no acute distress, alert and awake; No confusion Orientation/consciousness: oriented to person, oriented to place, patient oriented x3 and No confusion HENMT Head: Yes normocephalic Ears: external ears normal and TM's normal bilaterally Face and sinus: No sinus tenderness Mouth: Normal oral and palatal mucosa present and tongue normal Teeth and gingiva: dentition normal and gingiva normal Throat: Yes posterior oropharynx normal, Yes tonsils normal and Yes uvula midline Eyes Conjunctivae: conjunctivae normal Sclerae: sclerae normal Pupils: Equal, round and reactive pupils present EOM: EOMs intact bilaterally Direct Ophthalmoscopy: No no photophobia Neck Neck: Yes no lymphadenopathy, No tender and Yes no JVD Thyroid: Thyroid normal Carotids: no bruits Chest Chest palpation & inspection: no tenderness Resp Effort & Inspection: normal respiratory effort, no audible wheezes, not labored and no stridor Auscultation: no crackles, no rales, no rhonchi and no wheezes Cardio Jugular venous distension: no JVD Rate: regular rate, not bradycardic and not tachycardic Rhythm: regular rhythm Bruits: no carotid bruits Peripheral pulses: Peripheral pulses 2+ throughout GI Inspection: Yes normal to inspection, No abdominal wall ecchymosis and No visible herniation Palpation (GI): Soft to palpation, nontender, no guarding, not rigid and No hepatosplenomegaly present Auscultation: normoactive bowel sounds General: Yes no CVA tenderness Back/Spine/Pelvis Back: no CVA tenderness and No back tenderness Cervical Spine: cervical ROM normal Thoracic/Lumbar Spine: thoracic and lumbar spine normal to inspection, straight leg raise negative bilaterally, No thoraco-lumbar ROM limited and No lumbar spinal tenderness Skin Lesions: no lesions Rashes: no rashes Wounds: no wounds Neuro General: oriented to person, oriented to place, patient oriented x3, CN's II-XI intact bilaterally and No confusion Cranial nerves: Yes Equal, round and reactive pupils present and Yes Normal accommodation reflex present Cognition (Neuro): normal cognition Speech: No Abnormal speech present Gait exam (Neuro): Normal gait present Motor exam (neuro): 5/5 motor strength present throughout Extrem Right upper extremity: full ROM; no cyanosis Left upper extremity: full ROM; no cyanosis Right lower extremity: no edema Left lower extremity: no edema Psych Appearance: grossly normal Mental Status: mental status grossly normal Affect: normal affect Attitude: cooperative Thought process: Normal thought process present Coding Level of Care Code Est Pt Prev Care 40-64y(86758) Diagnoses Annual physical exam Z00.00 Primary hypertension I10 Hypertension type: primary hypertension Coronary artery disease involving [place] coronary artery of [place] heart without angina pectoris I25.10 Associated angina: without angina Coronary Disease-Associated Artery/Lesion type: [place] artery [place] vs. transplanted heart: [place] heart Erosive esophagitis K22.10 Additional Codes EB-7 Assessment Billing - EB-7 Assessment Tool: EB-7 Assessment 92429 ([id number]) Assessment & Plan Assessment & Plan (1) Annual physical exam: Code(s): Z00.00 - Encounter for general adult medical examination without abnormal findings Category: Medical Plan: As per HPI (2) HTN (hypertension): Code(s): I10 - Essential (primary) hypertension Category: Medical Qualifiers: Hypertension type: primary hypertension Qualified Code(s): I10 - Essential (primary) hypertension Plan: Patient's blood pressure acceptable today in office. Will continue his current dose of lisinopril 10 mg. Not on metoprolol anymore due to low heart rates. Goal blood pressures to remain below 140/90 (3) CAD (coronary artery disease): Code(s): I25.10 - Atherosclerotic heart disease of [place] coronary artery without angina pectoris Category: Medical Qualifiers: Associated angina: without angina Coronary Disease-Associated Artery/Lesion type: [place] artery [place] vs. transplanted heart: [place] heart Qualified Code(s): I25.10 - Atherosclerotic heart disease of [place] coronary artery without angina pectoris Plan: Patient continues on antiplatelet therapy and moderate dose statin with goal LDL to remain below 70. Continues to follow [facility]. (4) Erosive esophagitis: Code(s): K22.10 - Ulcer of esophagus without bleeding Category: Medical Plan: Recent endoscopy showing inactive gastritis. He wonders if this is related to his aspirin use. Does eat crushed ice when he gets epigastric pain which resolves his symptoms. Orders: Orders Complete Blood Count no Diff 12/30/23 K22.10 - Ulcer of esophagus without bleeding Lipid Panel 12/30/23 I25.10 - Atherosclerotic heart disease of [place] coronary artery without angina pectoris Microalbumin, Random (w Creat) 12/30/23 I10 - Essential (primary) hypertension Comprehensive Guild. Panel Fast 12/30/23 I10 - Essential (primary) hypertension Prostate Specific Antigen Scr 12/30/23 I25.10 - Atherosclerotic heart disease of [place] coronary artery without angina pectoris, Z12.5 - Encounter for screening for malignant neoplasm of prostate Patient Instructions: Goal: Blood pressure to remain below 140/90, LDL optimally to be below 70 Barriers: Adherence to physical activity and healthy eating habits
[2023-12-30 08:39] VITALS: BP 110/70; PULSE 63; O2SAT 97; BMI 29.2
== END 2023-12-30 09:10 | disposition home or self-care (01) ==
PROVIDERS: PCP Physician Assistant; Visit Provider Physician Assistant
DX: Z00.00 Encounter for general adult medical examination without abnormal findings (principal); I10 Essential (primary) hypertension; I25.10 Atherosclerotic heart disease of native coronary artery without angina pectoris; K22.10 Ulcer of esophagus without bleeding

== ENCOUNTER 2024-02-10 01:48 | Inpatient (IN) | payer MEDICARE, OTHER, SELFPAY ==
[2024-02-10] VITALS (13 sets, daily range): BP systolic 116–158; BP diastolic 60–92; PULSE 65–122; RESP 13–22; TEMP 36.2–37.1; O2SAT 88–98; BMI 29.0; BMI 28.1; BMI 30.3
--- NOTE | ~2024-02-10 | CT_ITS ---
EXAMINATION: CT ABDOMEN AND PELVIS WITHOUT CONTRAST CLINICAL INFORMATION: Abdominal pain. Concern for bowel obstruction. COMPARISON: None available. TECHNIQUE: Multidetector volumetric imaging was performed from the superior aspect of the liver through the pubic symphysis. Sagittal and coronal reformatted images were obtained on the technologist's workstation. This CT examination was performed using dose optimization techniques as appropriate, variously including the following: *Automated exposure control *Adjustment of mA and/or kV according to patient size (this includes techniques or standardized protocols for targeted exams where dose is matched to indication/reason for exam; i.e. extremities or head) *Use of iterative reconstruction technique DLP: 627 mGy-cm FINDINGS: LUNG BASES: There is atelectatic change at both lung bases. LIVER, GALLBLADDER, AND BILIARY TREE: The liver is normal in size, shape, and attenuation. No focal hepatic lesion or biliary ductal dilatation is present. The gallbladder is distended with a gallstone near the neck of the gallbladder. There also appears to be a 3.5 mm cystic duct calculus. There is pericholecystic fluid/thickening. PANCREAS: Unremarkable. SPLEEN: Unremarkable. ADRENAL GLANDS: Unremarkable. KIDNEYS AND URETERS: The kidneys are normal in size, shape, and attenuation. No hydronephrosis, hydroureter, or calculi seen. No perinephric stranding. BLADDER: Unremarkable. GASTROINTESTINAL TRACT: The small and large bowel are unremarkable. The appendix is within normal limits. There is a small hiatal hernia. ABDOMINAL WALL: There is a minimal umbilical hernia containing fat. LYMPH NODES: Normal. VASCULAR: There is atherosclerotic plaque of the abdominal aorta and proximal branches. PELVIC VISCERA: Unremarkable. OSSEOUS STRUCTURES: There is diffuse mild to moderate thoracolumbar degenerative change. CT/CT abdomen pelvis wo IV con IMPRESSION: There is a distended gallbladder with a gallstone near the neck of the gallbladder and a 3.5 mm cystic duct calculus. There is pericholecystic fluid/thickening. The findings are suspicious for acute cholecystitis. Fleischner guidelines were followed. Electronically signed by: Daren Brink MD 02/10/2024 06:43 AM [facility]
--- NOTE | ~2024-02-10 | US_ITS ---
US/US abdomen limited IMPRESSION: 1. A 0.8 x 0.7 cm gallstone in the gallbladder neck appears nonmobile, with no change in position despite altering patient position and appears impacted. Small amount of possible fluid in the gallbladder wall versus pericholecystic fluid. Gallbladder wall thickening of 0.5 cm. 2. Per kiln setter, patient reports no pain at time of exam, however, patient received medication prior to exam. This study was presented today February 10, 2024 for interpretation. Stat results provided at this time as requested by referring provider. This study was presented to dc on February 10, 2024 for interpretation. PSA staff will provide results to referring provider at this time. Electronically signed by: Corinna Bo MD 02/10/2024 06:25 AM [facility] [place]: US ABDOMEN LIMITED CLINICAL INFORMATION: Gallbladder neck stone check for mobility. Mid abdominal pain for 4 days, history of gallstones, nausea and vomiting, patient last ate 12 hours before exam per patient statement to kiln setter at time of exam. COMPARISON: None available. TECHNIQUE: Real-time imaging of the gallbladder and common duct. Limited visualization due to bowel gas. FINDINGS: Gallbladder wall thickening of 0.5 cm. A 0.8 x 0.7 cm gallstone in the gallbladder neck appears nonmobile, with no change in position despite altering patient position. Small amount of possible fluid in the gallbladder wall versus pericholecystic fluid. Common duct diameter 0.4 cm. Per kiln setter, patient reports no pain at time of exam, however, patient received medication prior to exam.
[2024-02-10 02:31] LABS: MANUAL DIFF FLAG NO
[2024-02-10 02:32] LABS: Basophils Percent Auto 0.6 % (0-2); Eosinophils Absolute Auto 0.2 X10*3/uL (0.0-0.4); Eosinophils Percent Auto 2.7 % (0-4); Hematocrit 43.8 % (42.0-52.0); Imm Gran Abs Auto 0.02 X10*3/uL (0.00-0.03); Imm Gran Pct Auto 0.3 % (0.0-0.4); Mean Corpuscular HGB Conc 36.5 g/dl (31.0-36.0); Mean Corpuscular Hemoglobin 32.9 pg (27.0-33.0); Mean Corpuscular Volume 89.9 fL (80.0-98.0); Mean Platelet Volume 9.4 fL (9.4-12.4); Monocytes Absolute Auto 0.6 X10*3/uL (0.1-1.2); Monocytes Percent Auto 9.4 % (2-11); Neutrophils Absolute Auto 4.8 x10*3/uL (2.0-8.3); Platelet Count 160 X10*3/uL (160-400); Red Blood Count 4.87 X10*6/uL (4.60-5.80); Red Cell Distribution Width 13.8 % (11.0-16.0); White Blood Count 6.7 X10*3/uL (4.8-10.8)
--- NOTE | 2024-02-10 02:34 | ED_ITS ---
HPI - Abdominal Pain General Chief Complaint: Abdominal Pain Stated Complaint: abd pain Time Seen by Provider: 02/10/24 02:33 Source: patient Mode of arrival: ambulatory Limitations: no limitations History of Present Illness ED Provider: HPI narrative: Patient's history of gallstones comes here for pain in upper abdomen for last 3 days with associated with nausea and vomiting pain is localized to epigastric area and right upper quadrant vomited 2 days ago now having dry heaves no fever no chills no cough Related Data Home Medications ?Medication ?Instructions ?Recorded ?Confirmed aspirin 81 mg tablet,delayed 81 mg PO DAILY 11/28/21 12/30/23 release lisinopril 10 mg tablet 10 mg PO DAILY 11/28/21 12/30/23 Previous Rx's ?Medication ?Instructions ?Recorded atorvastatin 40 mg tablet 40 mg PO DAILY #90 tabs 01/13/23 Allergies Allergy/AdvReac Type Severity Reaction Status Date / Time No Known Allergies Allergy Verified 02/10/24 02:07 Review of Systems Review of Systems Yes all other systems are reviewed and are negative PMFSH Past Medical History Medical History Annual physical exam Right upper quadrant abdominal pain Lumbar radiculopathy, acute Low back pain Colon cancer screening Bronchitis Screening for prostate cancer Solitary pulmonary nodule Hypercholesterolemia Hypertension Myocardial infarct, old Pelvic pain in male COVID-19 Surgical History Hx of colonoscopy Hx of heart artery stent Previous back surgery Family History Family History Mother Skin cancer Father CAD (coronary artery disease) Paternal Grandfather Cancer Social History Social History Housing: House Alcohol intake: current Alcohol intake frequency: does not drink Alcohol type: wine Patient Tobacco Use Status: Former Tobacco user Smoked in Last 30 Days: No e-Cigarette/Vaping Use: Never Used Second Hand Smoke Exposure: Yes Use of substances other than those prescribed or required for medical reasons: No Substance Use Type: Marijuana Advance Directives: Yes Advance Directives Information Provided: No Advance Directives on File: No Do you have a plan to hurt others: No Plan service: No Current occupational status: employed 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 Oriented X3. in moderate distress Eyes: PERRLA, No Nystagmus ENT: Pharynx normal. Oral Mucosa moist Neck: Normal inspection. Neck supple. CVS: Normal heart rate and rhythm. Pulses normal. Respiratory: No respiratory distress. Equal air entry bilateral, no wheezing/rales/rhonchi Abdomen: Soft and tenderness right upper quadrant and epigastric area with guarding Bowel sounds are present, no mass palpable, no CVA tenderness Skin: Skin warm and dry. Normal skin color. Normal skin turgor. Extremities: No lower extremity edema. No calf tenderness Neuro: Oriented X 3. No motor deficit. No sensory deficit.No cerebellar signs , cranial nerves II-XII intact Medical Decision Making Medical Decision Making [facility] Narrative: Patient with acute cholecystitis with impacted CBD stone without significant elevated liver enzymes case discussed Dr. Sena day spa manager who is aware of with the patient will admit patient to hospitalist service for ERCP Differential Diagnosis Differential Diagnoses: The differential diagnosis associated with the presentation includes Pancreatitis/cholecystitis/CBD stone Admission/Observation Consideration of admission/observation: Escalation of care including admission/observation considered Consult Healthcare Provider Management of the patient was discussed with: Hospitalist Lab Data [facility] Lab Attestation statement: I reviewed the patient's lab results. 02/10/24 02:25 02/10/24 02:25 Labs: Lab Results 02/10/24 02/10/24 Range/Units 02:25 05:21 WBC 6.7 (4.8-10.8) X10*3/uL RBC 4.87 (4.60-5.80) X10*6/uL Hgb 16.0 (14.0-18.0) g/dl Hct 43.8 (42.0-52.0) % MCV 89.9 (80.0-98.0) fL MCH 32.9 (27.0-33.0) pg MCHC 36.5 H (31.0-36.0) g/dl RDW 13.8 (11.0-16.0) % Plt Count 160 (160-400) X10*3/uL MPV 9.4 (9.4-12.4) fL Immature Gran % (Auto) 0.3 (0.0-0.4) % Neut % (Auto) 72.0 (45-73) % Lymph % (Auto) 15.0 L (20-40) % Randolph % (Auto) 9.4 (2-11) % Eos % (Auto) 2.7 (0-4) % Baso % (Auto) 0.6 (0-2) % Lymph # (Auto) 1.0 L (1.2-4.9) X10*3/uL Randolph # (Auto) 0.6 (0.1-1.2) X10*3/uL Eos # (Auto) 0.2 (0.0-0.4) X10*3/uL Baso # (Auto) 0.0 (0.0-0.2) X10*3/uL Abs Immat Gran (auto) 0.02 (0.00-0.03) X10*3/uL Absolute Neuts (auto) 4.8 (2.0-8.3) x10*3/uL Absolute Nucleated RBC 0.000 (0.0-0.012) X10*3/uL Nucleated RBC % (auto) 0.0 (0.0-0.2) /100WBC Sodium 137 (135-145) mmol/L Potassium 3.8 (3.3-5.1) mmol/L Chloride 102 (96-108) mmol/L Carbon Dioxide 21 L (22-29) mmol/L Anion Gap 18 (12-20) BUN 15 (9-16) mg/dL Creatinine 0.94 (0.5-1.4) mg/dL Estim Creat Clear Calc 83.8 Estimated GFR > 60 Random Glucose 117 H (60-115) mg/dL Lactic Acid 0.9 (0.5-2.0) mmol/L Calcium 9.2 (8.4-10.2) mg/dL Total Bilirubin 5.1 H (0.0-1.0) mg/dL AST 1343 H (5-37) U/L ALT 1295 H (0-40) U/L Alkaline Phosphatase 280 H (39-117) U/L Total Protein 7.2 (6.5-8.0) g/dL Albumin 4.1 (3.5-5.0) g/dL Lipase 19 (8-78) U/L Independent Interpretation I performed an independent interpretation of an: CT Scan Radiology Impression Discussion of test interpretation with radiology: I have reviewed the radiologist's reading. Radiologist Impression: US/US abdomen limited IMPRESSION: 1. A 0.8 x 0.7 cm gallstone in the gallbladder neck appears nonmobile, with no change in position despite altering patient position and appears impacted. Small amount of possible fluid in the gallbladder wall versus pericholecystic fluid. Gallbladder wall thickening of 0.5 cm. 2. Per painter railroad car, patient reports no pain at time of exam, however, patient received medication prior to exam. This study was presented today February 10, 2024 for interpretation. Stat results provided at this time as requested by referring provider. This study was presented to me on February 10, 2024 for interpretation. PSA staff will provide results to referring provider at this time. Electronically signed by: Corinna Bo MD 02/10/2024 06:25 AM [facility] [place] [id number] CT Scan Report Signed Patient: Nando Duke MR#: [id number] : 1960 Acct:[id number] Age/Sex: 64 / M ADM Date: 02/10/24 Loc: HO.ED Attending Dr: Ordering Physician: Chivo Yeboah MD Date of Service: 02/10/24 Procedure(s): CT abdomen pelvis wo IV con Accession Number(s): [id number] cc: Garry Rendon PA-C; Chivo Yeboah MD~ EXAMINATION: CT ABDOMEN AND PELVIS WITHOUT CONTRAST CLINICAL INFORMATION: Abdominal pain. Concern for bowel obstruction. COMPARISON: None available. TECHNIQUE: Multidetector volumetric imaging was performed from the superior aspect of the liver through the pubic symphysis. Sagittal and coronal reformatted images were obtained on the technologist's workstation. This CT examination was performed using dose optimization techniques as appropriate, variously including the following: *Automated exposure control *Adjustment of mA and/or kV according to patient size (this includes techniques or standardized protocols for targeted exams where dose is matched to indication/reason for exam; i.e. extremities or head) *Use of iterative reconstruction technique DLP: 627 mGy-cm FINDINGS: LUNG BASES: There is atelectatic change at both lung bases. LIVER, GALLBLADDER, AND BILIARY TREE: The liver is normal in size, shape, and attenuation. No focal hepatic lesion or biliary ductal dilatation is present. The gallbladder is distended with a gallstone near the neck of the gallbladder. There also appears to be a 3.5 mm cystic duct calculus. There is pericholecystic fluid/thickening. PANCREAS: Unremarkable. SPLEEN: Unremarkable. ADRENAL GLANDS: Unremarkable. KIDNEYS AND URETERS: The kidneys are normal in size, shape, and attenuation. No hydronephrosis, hydroureter, or calculi seen. No perinephric stranding. BLADDER: Unremarkable. GASTROINTESTINAL TRACT: The small and large bowel are unremarkable. The appendix is within normal limits. There is a small hiatal hernia. ABDOMINAL WALL: There is a minimal umbilical hernia containing fat. LYMPH NODES: Normal. VASCULAR: There is atherosclerotic plaque of the abdominal aorta and proximal branches. PELVIC VISCERA: Unremarkable. OSSEOUS STRUCTURES: There is diffuse mild to moderate thoracolumbar degenerative change. CT/CT abdomen pelvis wo IV con IMPRESSION: There is a distended gallbladder with a gallstone near the neck of the gallbladder and a 3.5 mm cystic duct calculus. There is pericholecystic fluid/thickening. The findings are suspicious for acute cholecystitis. Fleischner guidelines were followed. Electronically signed by: Daren Brink MD 02/10/2024 06:43 AM [facility] Medications Administered Discontinued Medications Generic Name Dose Route Start Last Admin Trade Name Freq PRN Reason Stop Dose Admin Famotidine 20 mg 02/10/24 03:19 02/10/24 03:24 Famotidine/Pf 20 Mg/2 Ml Vial IVPUSH 02/10/24 03:20 20 mg ONCE ONE Administration Sodium Chloride 1,000 mls @ 999 mls/hr 02/10/24 02:44 02/10/24 04:20 Ns IV 02/10/24 03:44 Infused .Q1H1M ONE Infusion Piperacillin Sod/Tazobactam 50 mls @ 100 mls/hr 02/10/24 05:06 02/10/24 06:00 Sod 3.375 gm/ Sodium Chloride IV 02/10/24 05:35 Infused ONCE ONE Infusion Morphine Sulfate 4 mg 02/10/24 02:44 02/10/24 03:15 Morphine Sulfate 4 Mg/Ml Cartridge IVPUSH 02/10/24 02:45 4 mg ONCE ONE Administration Protocol Ondansetron HCl 4 mg 02/10/24 02:44 02/10/24 03:15 Ondansetron Hcl 4 Mg/2 Ml Vial IVPUSH 02/10/24 02:45 4 mg ONCE ONE Administration Discharge Plan Discharge Clinical Impression: Acute calculous cholecystitis Patient Disposition: Admitted As Inpatient Print Language: Scottish
[2024-02-10 02:48] LABS: Albumin Level 4.1 g/dL (3.5-5.0); Alkaline Phosphatase 280 U/L (39-117); Anion Gap 18 (12-20); Aspartate Amino Transferase 1343 U/L (5-37); Bilirubin Total 5.1 mg/dL (0.0-1.0); Blood Urea Nitrogen 15 mg/dL (9-16); Calcium 9.2 mg/dL (8.4-10.2); Carbon Dioxide 21 mmol/L (22-29); Chloride 102 mmol/L (96-108); Creatinine Clr Calc Pharmacy 83.8; Estimated Glomerular Filt Rate > 60; Glucose Random 117 mg/dL (60-115); Lipase 19 U/L (8-78); Potassium 3.8 mmol/L (3.3-5.1); Sodium 137 mmol/L (135-145); Total Protein 7.2 g/dL (6.5-8.0)
[2024-02-10 02:56] LABS: Alanine Aminotransferase 1295 U/L (0-40)
[2024-02-10] MEDS: 0.9 % Sodium Chloride 1,000 ML 999 ML IV (03:15)
[2024-02-10] MEDS: ondansetron HCL 4 MG/2 ML VIAL IVPUSH (03:15)
[2024-02-10] MEDS: Morphine Sulfate 4 MG/ML CARTRIDGE IVPUSH (03:15)
[2024-02-10] MEDS: Famotidine/PF 20 MG/2 ML VIAL IVPUSH (03:24)
[2024-02-10] MEDS: Piperacillin Sodium/Tazobactam 3.375 GM in 0.9 % Sodium Chloride 50 ML IV ×4 (05:27→23:20)
[2024-02-10 05:42] LABS: Lactic Acid 0.9 mmol/L (0.5-2.0)
--- NOTE | 2024-02-10 07:04 | P.CNGI_ITS ---
History of Present Illness Data of Consult Service Date: 02/10/24 Primary Care Provider: Garry Rendon PA-C HPI Reason for consult: Biliary obstruction, gallstones 64-year-old male with a past medical history of CAD s/p drug-eluting stent x2, hypertension, hyperlipidemia who I am seeing for biliary obstruction. Patient noted severe colicky pain 10/10 since last 2-3 d, in ruq and epigastric area without radiation with nausea but no fever, jaundice or dark urine. Relieved by morphine given in the ED. he had a similar pain 8 months prior with neg work up. LABS: T bili of 5.1, AST/ALT of 1343/1295, alk-phos 280. Imaging: CT: cystic duct stone, GB stone, distended GB US: stone at the gallbladder neck with gallbladder wall thickening and pericholecystic fluid. Review of Systems 2 Review of Systems: Constitutional : No Weight loss, No Fever, No Chills ENT/Mouth : No sore throat, No Rhinorrhea Eyes: No Swelling, No Redness Cardiovascular : No Chest Pain, No SOB, No Edema Respiratory : No Cough, No Sputum, No Wheezing Gastrointestinal : see HPI Genitourinary : NO Dysuria, No Urinary Frequency, No Hematuria, No Urgency Musculoskeletal : no joint pain, No Myalgias, No Joint Swelling Skin : No Skin Lesions, No rash Neuro : No Weakness, No Numbness, No Dizziness, No Headache Psych : No Anxiety/Panic, No Depression Heme/Lymph: No Bruising, No Lymphadenopathy Endocrine : No Polyuria, No Polydipsia All other systems reviewed and are negative. [facility] Past Medical History Medical History (Updated 02/10/24 @ 10:07 by Nadia Urbano PA-C) Annual physical exam Right upper quadrant abdominal pain Lumbar radiculopathy, acute Low back pain Colon cancer screening Bronchitis Screening for prostate cancer Solitary pulmonary nodule Hypercholesterolemia Hypertension Myocardial infarct, old Pelvic pain in male COVID-19 Family History Family History Mother Skin cancer Father CAD (coronary artery disease) Paternal Grandfather Cancer Surgical History Surgical History (Updated 02/10/24 @ 10:05 by Nadia Urbano PA-C) Hx of colonoscopy Hx of heart artery stent Previous back surgery Social History Social History Housing: House Alcohol intake: current Alcohol intake frequency: does not drink Alcohol type: wine Patient Tobacco Use Status: Former Tobacco user Smoked in Last 30 Days: No e-Cigarette/Vaping Use: Never Used Second Hand Smoke Exposure: Yes Use of substances other than those prescribed or required for medical reasons: No Substance Use Type: Marijuana Advance Directives: Yes Advance Directives Information Provided: No Advance Directives on File: No Do you have a plan to hurt others: No Plan service: No Current occupational status: employed 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 Current occupational exposures/hazards: No Cognitive needs: No Hearing needs: No Vision needs: Yes (reading glasses) Meds Allergies Allergy/AdvReac Type Severity Reaction Status Date / Time No Known Allergies Allergy Verified 02/10/24 02:07 Home Medications ?Medication ?Instructions ?Recorded ?Confirmed ?Last Taken ?Type aspirin 81 mg tablet,delayed 81 mg PO DAILY 11/28/21 02/10/24 02/08/24 History release lisinopril 10 mg tablet 10 mg PO DAILY 11/28/21 02/10/24 02/08/24 History Physical Exam 2 Vital Signs: Vital Signs: Last Vital Signs Temp 98.4 F 02/10/24 05:08 Pulse 84 02/10/24 05:08 Resp 18 02/10/24 05:08 BP 123/75 02/10/24 05:08 Pulse Ox 94 02/10/24 05:08 O2 Del Method Room Air 02/10/24 05:08 BMI result Body Mass Index 29.0 EXAM: GENERAL: The patient is well developed and nontoxic. VITAL SIGNS:see workflow HEENT: Nonicteric sclerae, PERRLA, EOMI. Oropharynx clear. Moist mucous membranes. Conjunctivae appear well perfused. No thyroid mass. CHEST: Chest wall is nontender. HEART: Regular rate and rhythm without murmurs. LUNGS: Clear to auscultation bilaterally. ABDOMEN: Soft, positive bowel sounds, nontender, no organomegaly.no flank tenderness SKIN: No rash, no excessive bruising, petechiae, or purpura. NEUROLOGIC: Cranial nerves II-XII intact without motor/sensory deficit. Psych: normal affect Results Labs 02/10/24 02:25 02/10/24 02:25 Labs: Short CBC 02/10/24 Range/Units 02:25 WBC 6.7 (4.8-10.8) X10*3/uL Hgb 16.0 (14.0-18.0) g/dl Hct 43.8 (42.0-52.0) % Plt Count 160 (160-400) X10*3/uL BMP 02/10/24 02:25 Sodium 137 Potassium 3.8 Chloride 102 Carbon Dioxide 21 L BUN 15 Creatinine 0.94 Calcium 9.2 Liver Function 02/10/24 Range/Units 02:25 Total Bilirubin 5.1 H (0.0-1.0) mg/dL AST 1343 H (5-37) U/L ALT 1295 H (0-40) U/L Alkaline Phosphatase 280 H (39-117) U/L Albumin 4.1 (3.5-5.0) g/dL Imaging CT scan - abdomen: Attestation: I personally reviewed and interpreted this imaging study as follows: (distended GB, calcification seen in cystic duct and in GB ) Assessment and Plan (1) Acute calculous cholecystitis: Status: Acute Plan 1/ Cholecystitis with stone in cystic duct and also in CBD, with LFT supportive of CBD obstruction PLAN: 1/ ERCP today if OR schedule allows, cont with ABx for the meantime 2/ He is not sure if he wants cholecystectomy, can also consider IR consult can use spyglass down the line Procedures Date of Service Date of Service: 02/10/24
--- NOTE | 2024-02-10 08:56 | PM.IMHP ---
History of Present Illness Date of Service: 02/10/24 Chief Complaint: abdominal pain The patient is a 64-year-old male with a past medical history of CAD status post drug-eluting stent x2 most recent 1 2 years ago, hypertension, hyperlipidemia who presents to the emergency room with complaints of epigastric/right upper quadrant abdominal pain which has been ongoing for the preceding 2 days. The patient reports that initially his pain was colicky in nature but over the last 24 hours prior to admission has become severe and constant. The patient does endorse 1 prior episode of similar pain about 8 months prior to this admission. At that time he reports he was worked up for gallbladder disease and workup was negative. In the emergency room the patient underwent testing including basic blood work which showed elevated LFTs in an obstructive pattern with the T bili of 5.1, AST/ALT of 1343/1295, alk-phos 280. Ultrasound showed a stone at the gallbladder neck with gallbladder wall thickening and pericholecystic fluid. CT scan showed a 3.5 mm cystic duct stone as well. The patient has been given IV morphine, IV Zofran, IV fluids and IV antibiotics. He will now be admitted for further workup and treatment. Review of Systems Review of Systems: Negative except HPI/interval history. [facility] Medical History (Updated 02/10/24 @ 10:07 by Nadia Urbano PA-C) Annual physical exam Right upper quadrant abdominal pain Lumbar radiculopathy, acute Low back pain Colon cancer screening Bronchitis Screening for prostate cancer Solitary pulmonary nodule Hypercholesterolemia Hypertension Myocardial infarct, old Pelvic pain in male COVID-19 Family History Mother Skin cancer Father CAD (coronary artery disease) Paternal Grandfather Cancer Surgical History (Updated 02/10/24 @ 10:05 by Nadia Urbano PA-C) Hx of colonoscopy Hx of heart artery stent Previous back surgery Social History Housing: House Alcohol intake: current Alcohol intake frequency: does not drink Alcohol type: wine Patient Tobacco Use Status: Former Tobacco user Smoked in Last 30 Days: No e-Cigarette/Vaping Use: Never Used Second Hand Smoke Exposure: Yes Use of substances other than those prescribed or required for medical reasons: No Substance Use Type: Marijuana Advance Directives: Yes Advance Directives Information Provided: No Advance Directives on File: No Do you have a plan to hurt others: No Plan service: No Current occupational status: employed 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 Current occupational exposures/hazards: No Cognitive needs: No Hearing needs: No Vision needs: Yes (reading glasses) Meds Allergies Allergy/AdvReac Type Severity Reaction Status Date / Time No Known Allergies Allergy Verified 02/10/24 02:07 Home Medications ?Medication ?Instructions ?Recorded ?Confirmed ?Last Taken ?Type aspirin 81 mg tablet,delayed 81 mg PO DAILY 11/28/21 02/10/24 02/08/24 History release lisinopril 10 mg tablet 10 mg PO DAILY 11/28/21 02/10/24 02/08/24 History Physical Exam Vital Signs and Narrative: Vital Signs: Last Vital Signs Temp 98.4 F 02/10/24 05:08 Pulse 84 02/10/24 05:08 Resp 18 02/10/24 05:08 BP 123/75 02/10/24 05:08 Pulse Ox 94 02/10/24 05:08 O2 Del Method Room Air 02/10/24 05:08 BMI result Body Mass Index 29.0 Const: Other: Constitutional - Awake and Alert, No apparent distress Eyes - PERRLA, EOMI, +scleral icterus Cardiovascular - S1S2, RRR, No edema Respiratory - Normal lung expansion, Normal respiratory effort, No respiratory distress, CTA bilaterally Gastrointestinal - no TTP (pt s/p morphine); no rebound or guarding - No CVA tenderness Extremities - no calf tenderness bilaterally, no swelling Musculoskeletal - Normal inspection, normal ROM Skin - Warm/Dry Neurological - Alert & oriented x3, No focal deficit Psychological - Appropriate affect Results Labs 02/10/24 02:25 02/10/24 02:25 Labs: Laboratory Results - last 24 hr 02/10/24 02/10/24 02:25 05:21 MCV 89.9 MCH 32.9 MCHC 36.5 H RDW 13.8 Plt Count 160 MPV 9.4 Immature Gran % (Auto) 0.3 Neut % (Auto) 72.0 Lymph % (Auto) 15.0 L [place] % (Auto) 9.4 Eos % (Auto) 2.7 Baso % (Auto) 0.6 Lymph # (Auto) 1.0 L [place] # (Auto) 0.6 Eos # (Auto) 0.2 Baso # (Auto) 0.0 Abs Immat Gran (auto) 0.02 Absolute Neuts (auto) 4.8 Absolute Nucleated RBC 0.000 Nucleated RBC % (auto) 0.0 Anion Gap 18 Estim Creat Clear Calc 83.8 Estimated GFR > 60 Random Glucose 117 H Lactic Acid 0.9 Calcium 9.2 Total Bilirubin 5.1 H AST 1343 H ALT 1295 H Alkaline Phosphatase 280 H Total Protein 7.2 Albumin 4.1 Lipase 19 Imaging Radiologist's Impressions: Impressions Abdomen/Pelvis CT 02/10/24 02:45 IMPRESSION: There is a distended gallbladder with a gallstone near the neck of the gallbladder and a 3.5 mm cystic duct calculus. There is pericholecystic fluid/thickening. The findings are suspicious for acute cholecystitis. Fleischner guidelines were followed. Electronically signed by: Daren Brink MD 02/10/2024 06:43 AM [employer] Abdomen Ultrasound 02/10/24 04:40 IMPRESSION: 1. A 0.8 x 0.7 cm gallstone in the gallbladder neck appears nonmobile, with no change in position despite altering patient position and appears impacted. Small amount of possible fluid in the gallbladder wall versus pericholecystic fluid. Gallbladder wall thickening of 0.5 cm. 2. Per veterinary hospital attendant, patient reports no pain at time of exam, however, patient received medication prior to exam. This study was presented today February 10, 2024 for interpretation. Stat results provided at this time as requested by referring provider. This study was presented to ut on February 10, 2024 for interpretation. PSA staff will provide results to referring provider at this time. Electronically signed by: Corinna Bo MD 02/10/2024 06:25 AM [employer] Assessment and Plan (1) Acute calculous cholecystitis: Status: Acute Plan 64 yo M with a PMH of CAD s/p DANIELLE x 2, HTN, HLD who presents with a 2 day history of abdominal pain. Found to have obstructive jaundice. 1. Obstructive jaundice possible CBD stones GI consulted -- plan for ERCP today NPO, IVF, IV analgesics elevated 2. Acute cholecystitis NPO, IVF, IV antibiotics gen surg consult pt does not have severe sepsis -- elevated t. bili is due to obstruction 3. CAD s/p DANIELLE hold statin given LFTs and asa for planned procedures 4. HTN continue meds, likely tomorrow Full Code DVT pptx, Lovenox (will start after procedures) Pt with acute cholecystitis and possibly common bile duct stones leading to obstructive jaundice with significantly elevated liver function tests, with planned ERCP and likely eventual cholecystectomy, therefore expected to require at least 2 midnights in the hospital for further treatment hence will be admitted as inpatient. Quality Stroke Does the patient have a stroke diagnosis?: No VTE Prior VTE?: No VTE Risk Level:: Medical - moderate - high VTE Device Contraindication: N/A - Device Ordered VTE Drug Contraindication: Treatment Not Indicated
--- NOTE | 2024-02-10 09:24 | PHA.MEDREC ---
Pharmacy Consult ? Medication Reconciliation Pharmacy has completed the medication reconciliation. Spoke to patient and confirmed medication list. He confirmed dose of atorvastatin is 40 mg, he is not taking pantoprazole nor metoprolol. Last dose of medications was on thursday02/08/24.
--- NOTE | 2024-02-10 09:56 | PM.CNGS ---
History of Present Illness Consult details Consult date: 02/10/24 <Ayaan Eaton MD - Last Filed: 02/10/24 16:19> Narrative: Mr. Duke is a 64 year old male with PMH of CAD s/p stent, HTN, esophagitis who presented to the ED for evaluation of abd pain. He reports pain began 3 days ago in the epigastric/RUQ region. It was assocated with nausea, vomiting. It became so severe he came to the ED for evaluation. Work up at included CBC, BMP, LFTs which was significant for a total bilirubin of 5.1, AST/ALT 1343/1295. WBC was normal. CT scan/ ABD US no biliary ductal dilatation is present, distended gallbladder with a gallstone near the neck of the gallbladder and 3.5 mm cystic duct calculus with pericholecystic fluid/thickening. He was admitted to the hospitalist service for further treatment. He reports intermittent epigastric pain with one severe episode earlier this year and went to the ED at [facility] at the time because he thought it was another NC. Cardiac work up was negative, CT scan was negative except for gallstones. He had EGD for that intermittent epigastric pain and was found to have erosive esophagitis. He denies abd surgery before. He denies fever, chills, diarrhea, sick contacts. He reports being active and skies, does daily activity without shortness of breath, CP. <Nadia Urbano PA-C - Last Filed: 02/10/24 10:14> Review of Systems Review of Systems: Yes all other systems are reviewed and are negative <Nadia Urbano PA-C - Last Filed: 02/10/24 10:14> [facility] Past Medical History Medical History: Medical History Annual physical exam Right upper quadrant abdominal pain Lumbar radiculopathy, acute Low back pain Colon cancer screening Bronchitis Screening for prostate cancer Solitary pulmonary nodule Hypercholesterolemia Hypertension Myocardial infarct, old Pelvic pain in male COVID-19 <Nadia Urbano PA-C - Last Filed: 02/10/24 10:14> Family History Family History: Family History Mother Skin cancer Father CAD (coronary artery disease) Paternal Grandfather Cancer <Nadia Urbano PA-C - Last Filed: 02/10/24 10:14> Surgical History Surgical History: Surgical History Hx of colonoscopy Hx of heart artery stent Previous back surgery <Nadia Urbano PA-C - Last Filed: 02/10/24 10:14> Social History Social History: Social History Housing: House Alcohol intake: current Alcohol intake frequency: does not drink Alcohol type: wine Patient Tobacco Use Status: Former Tobacco user Smoked in Last 30 Days: No e-Cigarette/Vaping Use: Never Used Second Hand Smoke Exposure: Yes Use of substances other than those prescribed or required for medical reasons: No Substance Use Type: Marijuana Are you DNR?: No Advance Directives: Yes Advance Directives Information Provided: No Advance Directives on File: No Advance Directives Date on File: 02/10/24 Do you have a plan to hurt others: No Plan Recently lost weight without trying: No Eating poorly because of decreased appetite: Yes Nutrition Risks: No Nutritional Risk Poor oral hygiene: No service: No Current occupational status: employed 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 Current occupational exposures/hazards: No Cognitive needs: No Hearing needs: No Vision needs: Yes (reading glasses) <Nadia Urbano PA-C - Last Filed: 02/10/24 10:14> Meds Allergies/Adverse reactions: Allergies Allergy/AdvReac Type Severity Reaction Status Date / Time No Known Allergies Allergy Verified 02/10/24 02:07 <Nadia Urbano PA-C - Last Filed: 02/10/24 10:14> Active Medications: Current Medications Acetaminophen (Acetaminophen 325 Mg Tablet) 650 mg PO Q6H PRN PRN Reason: Pain, Mild (Pain Scale 1-3), fever or headache Calcium Carbonate (Calcium Carbonate 750 Mg Tab.Chew) 750 mg PO Q4H PRN PRN Reason: Heartburn Piperacillin Sod/Tazobactam (Sod 3.375 gm/ Sodium Chloride) 50 mls @ 100 mls/hr IV Q6H DEANDRA Lactated Ringer's (Lr) 1,000 mls @ 100 mls/hr IVCONT .Q10H [facility] Stop: 02/11/24 05:14 Magnesium Hydroxide (Milk Of Magnesia 30 Ml Oral.Susp) 30 ml PO DAILY PRN PRN Reason: Constipation Melatonin (Melatonin 3 Mg Tablet) 6 mg PO BEDTIME PRN PRN Reason: Insomnia Morphine Sulfate (Morphine Sulfate 4 Mg/Ml Cartridge) 2 mg IVPUSH Q4H PRN; Protocol PRN Reason: Pain, Severe (Pain Scale 7-10) Sodium Chloride (0.9 % Sodium Chloride Flush 3 Ml Syringe) 3 ml IVFLUSH QSHIFT DEANDRA <RAJWINDER Acevedo Last Filed: 02/10/24 10:14> Home medications: Home Medications ?Medication ?Instructions ?Recorded ?Confirmed ?Last Taken ?Type aspirin 81 mg tablet,delayed 81 mg PO DAILY 11/28/21 02/10/24 02/08/24 History release lisinopril 10 mg tablet 10 mg PO DAILY 11/28/21 02/10/24 02/08/24 History <RAJWINDER Acevedo Last Filed: 02/10/24 10:14> Physical Exam Vital Signs: Vital Signs: Last Vital Signs Temp 98.4 F 02/10/24 05:08 Pulse 84 02/10/24 05:08 Resp 18 02/10/24 05:08 BP 123/75 02/10/24 05:08 Pulse Ox 94 02/10/24 05:08 O2 Del Method Room Air 02/10/24 05:08 BMI result Body Mass Index 29.0 <RAJWINDER Acevedo Last Filed: 02/10/24 10:14> Const: General: comfortable, no acute distress and alert; No ill appearing <RAJWINDER Acevedo Last Filed: 02/10/24 10:14> Orientation/consciousness: patient oriented x3 <RAJWINDER Acevedo Last Filed: 02/10/24 10:14> Eyes: Sclerae: scleral abnormal (icteric) <RAJWINDER Acevedo Last Filed: 02/10/24 10:14> Neck: Neck: Yes no JVD <RAJWINDER Acevedo Last Filed: 02/10/24 10:14> Resp: Effort & Inspection: normal respiratory effort <Nadia RAJWINDER Urbano Lynda Last Filed: 02/10/24 10:14> GI: Inspection: Yes normal to inspection, No distended and No scar <Nadia Urbano PA-C Lynda Last Filed: 02/10/24 10:14> Palpation (GI): Soft to palpation, Tenderness to palpation present (GI) in the RUQ (mild ); Canales's sign negative and with no rebound tenderness, no guarding and not rigid <Nadia Urbano PA-C Lynda Last Filed: 02/10/24 10:14> Percussion: Yes normal to percussion <Nadia Urbano PA-C Lynda Last Filed: 02/10/24 10:14> Skin: General skin exam: no rashes or lesions noted and jaundice <Nadia Urbano PA-C Lynda Last Filed: 02/10/24 10:14> Neuro: General: patient oriented x3 and moves all extremities <Nadia Urbano PA-C Lynda Last Filed: 02/10/24 10:14> Results Labs Result diagrams: 02/10/24 02:25 02/10/24 02:25 <Nadia Urbano PA-C Lynda Last Filed: 02/10/24 10:14> Labs: Abnormal lab results 02/10/24 Range/Units 02:25 MCHC 36.5 H (31.0-36.0) g/dl Lymph % (Auto) 15.0 L (20-40) % Lymph # (Auto) 1.0 L (1.2-4.9) X10*3/uL Carbon Dioxide 21 L (22-29) mmol/L Random Glucose 117 H (60-115) mg/dL Total Bilirubin 5.1 H (0.0-1.0) mg/dL AST 1343 H (5-37) U/L ALT 1295 H (0-40) U/L Alkaline Phosphatase 280 H (39-117) U/L Short CBC 02/10/24 Range/Units 02:25 WBC 6.7 (4.8-10.8) X10*3/uL Hgb 16.0 (14.0-18.0) g/dl Hct 43.8 (42.0-52.0) % Plt Count 160 (160-400) X10*3/uL BMP 02/10/24 02:25 Sodium 137 Potassium 3.8 Chloride 102 Carbon Dioxide 21 L BUN 15 Creatinine 0.94 Calcium 9.2 Liver Function 02/10/24 Range/Units 02:25 Total Bilirubin 5.1 H (0.0-1.0) mg/dL AST 1343 H (5-37) U/L ALT 1295 H (0-40) U/L Alkaline Phosphatase 280 H (39-117) U/L Albumin 4.1 (3.5-5.0) g/dL All other labs normal. <Nadia Urbano PA-C - Last Filed: 02/10/24 10:14> Imaging Abdomen CT scan report/results: report reviewed and image reviewed <Nadia Urbano PA-C - Last Filed: 02/10/24 10:14> Assessment and Plan (1) Acute calculous cholecystitis: Status: Acute <Nadia Urbano PA-C - Last Filed: 02/10/24 10:14> He currently says he the abdominal pain has resolved Review of his CT scan shows a CBD stone and gallstone with question of cholecystitis He is going for an ERCP today - bilirubin is elevated at 5 I explained to him that because of the choledocholithiasis, I would recommend bleeding with laparoscopic cholecystectomy after I discussed the technique of this procedure as well as the risks, benefits, and alternatives. He does state that he has a to go to tomorrow he is to be the gallbladder He says he will decide tomorrow morning whether he will stay or not for the cholecystectomy on Thursday Patient seen and examined independently <Ayaan Eaton MD - Last Filed: 02/10/24 16:19> 64 year old male with PMH of CAD s/p stent, HTN, esophagitis presenting with epigastric/RUQ pain for 3 days found to have gallstones, ?cystic duct stone vs CBD stone with distended GB and pericholecystic fluid and significantly elevated LFTs with bili of 5 which is suggestive of biliary ductal obstruction and acute cholecystitis. He is schedule for ERCP today. Discussed proceeding with laparoscopic cholecystectomy, possible open to prevent recurrence of this. He is in agreement. He has been added onto the OR schedule for Thursday tenatively. Cont IVF, IV zosyn. <Nadia Urbano PA-C - Last Filed: 02/10/24 10:14> Procedures Date of Service Date of Service: 02/10/24 <Nadia Urbano PA-C - Last Filed: 02/10/24 10:14> 02/10/24 <Ayaan Eaton MD - Last Filed: 02/10/24 16:19>
[2024-02-10] MEDS: Lactated Ringers 1,000 ML 100 ML IVCONT ×2 (11:42→19:04)
--- NOTE | 2024-02-10 12:08 | PC.NURSE ---
patient tx over to overflow bed 3, patient LR stared at 100ml/hr. patient states pain is 1/10. patient is alert and oriented x4, ambulatory. patient has family at bedside
--- NOTE | 2024-02-10 15:10 | PC.NURSE ---
report given to scott in OR for patient
--- NOTE | 2024-02-10 15:19 | PC.NURSE ---
patient off unit for ERCP
--- NOTE | 2024-02-10 15:48 | MHC.SHP ---
Pre-Procedural Eval Section A - 24 Hr Update-Section A only Date of Service: 02/10/24 The patient is an INPATIENT: Yes The patient has been examined within 24 hours of the surgical procedure. The History & Physical has been completed within 30 days and I have reviewed it.: Yes Section B - Complete if H&P > 30 days Chief Complaint: RUQ pain Allergies: Allergies Allergy/AdvReac Type Severity Reaction Status Date / Time No Known Allergies Allergy Verified 02/10/24 02:07 Plan Diagnosis/Plan: Unchanged I have reviewed the history and physical and performed a pertinent physical examination on my patient. No changes have occurred unless specified. Time Spent With Patient Time: Total time managing care of this patient today ____ minutes.
--- NOTE | 2024-02-10 15:59 | HO.ANESPROP2 ---
[facility] Active Problems Active Problems: All Active Problems Acute calculous cholecystitis (Acute) Annual physical exam (Acute) Erosive esophagitis (Acute) Epigastric pain (Acute) Pulmonary nodule (Acute) Gallstones (Acute) Hip pain, left (Acute) HTN (hypertension) (Acute) Elevated blood pressure reading (Acute) Leukopenia (Acute) CAD (coronary artery disease) (Acute) Past Medical History Medical History Annual physical exam Right upper quadrant abdominal pain Lumbar radiculopathy, acute Low back pain Colon cancer screening Bronchitis Screening for prostate cancer Solitary pulmonary nodule Hypercholesterolemia Hypertension Myocardial infarct, old Pelvic pain in male COVID-19 Family History Family History Mother Skin cancer Father CAD (coronary artery disease) Paternal Grandfather Cancer Family history of problems with anesthesia: No Surgical History Surgical History Hx of colonoscopy Hx of heart artery stent Previous back surgery History of Problems with Anesthesia: No Social History Social History Housing: House Alcohol intake: current Alcohol intake frequency: does not drink Alcohol type: wine Patient Tobacco Use Status: Former Tobacco user Smoked in Last 30 Days: No e-Cigarette/Vaping Use: Never Used Second Hand Smoke Exposure: Yes Use of substances other than those prescribed or required for medical reasons: No Substance Use Type: Marijuana Are you DNR?: No Advance Directives: Yes Advance Directives Information Provided: No Advance Directives on File: No Advance Directives Date on File: 02/10/24 Do you have a plan to hurt others: No Plan Recently lost weight without trying: No Eating poorly because of decreased appetite: Yes Nutrition Risks: No Nutritional Risk Poor oral hygiene: No service: No Current occupational status: employed 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 Current occupational exposures/hazards: No Cognitive needs: No Hearing needs: No Vision needs: Yes (reading glasses) Meds Allergies Allergy/AdvReac Type Severity Reaction Status Date / Time No Known Allergies Allergy Verified 02/10/24 02:07 Active Medications: Current Medications Acetaminophen (Acetaminophen 325 Mg Tablet) 650 mg PO Q6H PRN PRN Reason: Pain, Mild (Pain Scale 1-3), fever or headache Calcium Carbonate (Calcium Carbonate 750 Mg Tab.Chew) 750 mg PO Q4H PRN PRN Reason: Heartburn Piperacillin Sod/Tazobactam (Sod 3.375 gm/ Sodium Chloride) 50 mls @ 100 mls/hr IV Q6H [facility] Last Infusion: 02/10/24 12:20 Dose: Infused Lactated Ringer's (Lr) 1,000 mls @ 100 mls/hr IVCONT .Q10H [facility] Stop: 02/11/24 05:14 Last Infusion: 02/10/24 15:46 Dose: 0 mls/hr Indomethacin (Indomethacin 50 Mg Supp.Rect) 100 mg VA ONCE ONE Stop: 02/10/24 15:48 Magnesium Hydroxide (Milk Of Magnesia 30 Ml Oral.Susp) 30 ml PO DAILY PRN PRN Reason: Constipation Melatonin (Melatonin 3 Mg Tablet) 6 mg PO BEDTIME PRN PRN Reason: Insomnia Morphine Sulfate (Morphine Sulfate 4 Mg/Ml Cartridge) 2 mg IVPUSH Q4H PRN; Protocol PRN Reason: Pain, Severe (Pain Scale 7-10) Sodium Chloride (0.9 % Sodium Chloride Flush 3 Ml Syringe) 3 ml IVFLUSH QSHIFT [facility] Last Admin: 02/10/24 15:47 Dose: Not Given Home Medications ?Medication ?Instructions ?Recorded ?Confirmed ?Last Taken ?Type aspirin 81 mg tablet,delayed 81 mg PO DAILY 11/28/21 02/10/24 02/08/24 History release lisinopril 10 mg tablet 10 mg PO DAILY 11/28/21 02/10/24 02/08/24 History Exam Height,Weight and Vital Signs: Height 5 ft 8 in Weight 83.915 kg Last Vital Signs Temp 98.7 F 02/10/24 15:27 Pulse 65 02/10/24 15:27 Resp 17 02/10/24 15:27 BP 126/78 02/10/24 15:27 Pulse Ox 95 02/10/24 15:27 O2 Del Method Room Air 02/10/24 15:27 Pertinent Lab Results Pertinent Lab Results: Laboratory Tests 02/10/24 02/10/24 02:25 05:21 WBC 6.7 RBC 4.87 Hgb 16.0 Hct 43.8 MCV 89.9 MCH 32.9 MCHC 36.5 H RDW 13.8 Plt Count 160 MPV 9.4 Immature Gran % (Auto) 0.3 Neut % (Auto) 72.0 Lymph % (Auto) 15.0 L [place] % (Auto) 9.4 Eos % (Auto) 2.7 Baso % (Auto) 0.6 Lymph # (Auto) 1.0 L [place] # (Auto) 0.6 Eos # (Auto) 0.2 Baso # (Auto) 0.0 Abs Immat Gran (auto) 0.02 Absolute Neuts (auto) 4.8 Absolute Nucleated RBC 0.000 Nucleated RBC % (auto) 0.0 Sodium 137 Potassium 3.8 Chloride 102 Carbon Dioxide 21 L Anion Gap 18 BUN 15 Creatinine 0.94 Estim Creat Clear Calc 83.8 Estimated GFR > 60 Random Glucose 117 H Lactic Acid 0.9 Calcium 9.2 Total Bilirubin 5.1 H AST 1343 H ALT 1295 H Alkaline Phosphatase 280 H Total Protein 7.2 Albumin 4.1 Lipase 19 Airway Mallampati Class: II TM Dist: >3cm Neck ROM: Full Heart: rrr Lungs: cta Assessment and Plan Assessment Anesthesia Assessment: Anesthesia Plan Discussed and Chart Reviewed Final Anesthetic Review Family History of Problems with Anesthesia: No History of Problems with Anesthesia: No NPO: Yes ASA Class: II Final Preanesthetic Review: No Changes in Pt Med Stat, Meds/Allgs Chart Reviewed and Consent Obtained/Reviewed Patient Risk: Low Procedure Risk: Low Anesthetic Plan Anesthetic Plan: GA Disposition: Standard PACU
--- NOTE | 2024-02-10 17:56 | P.OP_ITS ---
Operative Note Operative Note Date of Service: 02/10/24 Narrative: Description:?Endoscopic retrograde cholangiopancreatography (ERCP) PROCEDURE:?Endoscopic retrograde cholangiopancreatography with PD stent placement, sphincterotomy and balloon sweep with intra op cholangiogram INDICATION FOR THE PROCEDURE:?Patient with a history of cholecystitis and concern for CBD obstruction with abn LFT MEDICATIONS:?General anesthesia. The risks of the procedure were made aware to the patient and consisted of medication reaction, bleeding, perforation, aspiration, and post ERCP pancreatitis. DESCRIPTION OF PROCEDURE:?After informed consent and appropriate sedation, the duodenoscope was inserted into the oropharynx, down the esophagus, and into the stomach. The scope was then advanced through the pylorus to the ampulla. The ampullla appeared inflammed and stenosed. No bile flow was seen. The tome was angled and repeated attempts using the wire went into the PD. A Brian precut was performed and a 4 Fr PD stent was placed into the PD. The jagwire tome was then used and angled above the stent and entered into the CBD. A cholangiogram suggested possible filling defect in the distal CBD. A sphincterotomy was performed and a balloon sweep done with 12 mm balloon, with no sludge or stone material noted. An occlusion cholangiogram was performed and no filling defects noted, the gallbladder also filled very easily with no cystic duct obstruction noted. FINDINGS: 1. stenosed and inflammed ampulla, possibly due to recent stone passage or c hronic scarring. Seems to have passed stones seen on imaging. RECOMMENDATIONS: 1. Clears and advance diet tomorrow. 2. If clinically well, can consult surgery and if surgery agrees then o/p ABX and f/u
[2024-02-10] MEDS: 0.9 % Sodium Chloride Flush 3 ML SYRINGE IVFLUSH (19:06)
[2024-02-10] MEDS: Melatonin 3 MG TABLET 6 MG PO (22:34)
[2024-02-10] MEDS: Morphine Sulfate 4 MG/ML CARTRIDGE 2 MG IVPUSH (23:32)
[2024-02-11 03:45] VITALS: BP 109/62; PULSE 64; RESP 18; TEMP 36.2; O2SAT 95
[2024-02-11] MEDS: Piperacillin Sodium/Tazobactam 3.375 GM in 0.9 % Sodium Chloride 50 ML IV (05:17)
[2024-02-11 06:43] LABS: MANUAL DIFF FLAG NO
[2024-02-11 07:01] LABS: Basophils Percent Auto 0.5 % (0-2); Eosinophils Percent Auto 0.5 % (0-4); Hematocrit 37.3 % (42.0-52.0); Hemoglobin 13.1 g/dl (14.0-18.0); Imm Gran Abs Auto 0.02 X10*3/uL (0.00-0.03); Imm Gran Pct Auto 0.5 % (0.0-0.4); Lymphocytes Absolute Auto 0.7 X10*3/uL (1.2-4.9); Lymphocytes Percent Auto 17.4 % (20-40); Mean Corpuscular HGB Conc 35.1 g/dl (31.0-36.0); Mean Platelet Volume 10.1 fL (9.4-12.4); Monocytes Absolute Auto 0.3 X10*3/uL (0.1-1.2); Monocytes Percent Auto 8.9 % (2-11); Neutrophils Absolute Auto 2.7 x10*3/uL (2.0-8.3); Neutrophils Percent Auto 72.2 % (45-73); Platelet Count 124 X10*3/uL (160-400); Red Blood Count 3.97 X10*6/uL (4.60-5.80); Red Cell Distribution Width 13.7 % (11.0-16.0); White Blood Count 3.8 X10*3/uL (4.8-10.8)
[2024-02-11 07:15] LABS: Alanine Aminotransferase 872 U/L (0-40); Albumin Level 3.3 g/dL (3.5-5.0); Alkaline Phosphatase 228 U/L (39-117); Anion Gap 13 (12-20); Aspartate Amino Transferase 542 U/L (5-37); Bilirubin Total 4.8 mg/dL (0.0-1.0); Blood Urea Nitrogen 10 mg/dL (9-16); Calcium 8.5 mg/dL (8.4-10.2); Carbon Dioxide 25 mmol/L (22-29); Chloride 107 mmol/L (96-108); Creatinine Clr Calc Pharmacy 91.4; Estimated Glomerular Filt Rate > 60; Glucose Random 116 mg/dL (60-115); Potassium 4.5 mmol/L (3.3-5.1); Sodium 140 mmol/L (135-145); Total Protein 5.8 g/dL (6.5-8.0)
[2024-02-11 07:18] VITALS: BP 126/67; PULSE 63; RESP 16; TEMP 36.6; O2SAT 95
--- NOTE | 2024-02-11 08:32 | P.PNGS_ITS ---
Subjective Subjective Date of Service: 02/11/24 Interval history: ERCP done yesterday afternoon - no stones seen anymore in the common bile duct Sphincterotomy done and stent placed He feels well this morning Denies any abdominal pain Physical Exam 2 Vital Signs: Vital Signs: Last Vital Signs Temp 97.8 F 02/11/24 07:18 Pulse 63 02/11/24 07:18 Resp 16 02/11/24 07:18 BP 126/67 02/11/24 07:18 Pulse Ox 95 02/11/24 07:18 O2 Del Method Room Air 02/11/24 07:18 O2 Flow Rate 2 02/10/24 18:17 BMI result Body Mass Index 30.3 Const: General: comfortable and no acute distress Resp: Effort & Inspection: normal respiratory effort Cardio: Rate: regular rate GI: Other: No Canales's sign Palpation (GI): Soft to palpation, not firm, nontender and no guarding Objective Data Active Medications Acetaminophen (Acetaminophen 325 Mg Tablet) 650 mg PO Q6H PRN PRN Reason: Pain, Mild (Pain Scale 1-3), fever or headache Calcium Carbonate (Calcium Carbonate 750 Mg Tab.Chew) 750 mg PO Q4H PRN PRN Reason: Heartburn Piperacillin Sod/Tazobactam (Sod 3.375 gm/ Sodium Chloride) 50 mls @ 100 mls/hr IV Q6H [facility] Last Infusion: 02/11/24 05:52 Dose: Infused Documented By: GANGA Magnesium Hydroxide (Milk Of Magnesia 30 Ml Oral.Susp) 30 ml PO DAILY PRN PRN Reason: Constipation Melatonin (Melatonin 3 Mg Tablet) 6 mg PO BEDTIME PRN PRN Reason: Insomnia Last Admin: 02/10/24 22:34 Dose: 6 mg Documented By: GANGA Morphine Sulfate (Morphine Sulfate 4 Mg/Ml Cartridge) 2 mg IVPUSH Q4H PRN; Protocol PRN Reason: Pain, Severe (Pain Scale 7-10) Last Admin: 02/10/24 23:32 Dose: 2 mg Documented By: GANGA Sodium Chloride (0.9 % Sodium Chloride Flush 3 Ml Syringe) [facility] Last Admin: 02/10/24 19:06 Dose: 3 ml Documented By: GANGA Labs 02/11/24 06:42 02/11/24 06:42 Labs: Laboratory Results - last 24 hr 02/11/24 06:42 MCV 94.0 MCH 33.0 MCHC 35.1 RDW 13.7 Plt Count 124 L MPV 10.1 Immature Gran % (Auto) 0.5 H Neut % (Auto) 72.2 Lymph % (Auto) 17.4 L [place] % (Auto) 8.9 Eos % (Auto) 0.5 Baso % (Auto) 0.5 Lymph # (Auto) 0.7 L [place] # (Auto) 0.3 Eos # (Auto) 0.0 Baso # (Auto) 0.0 Abs Immat Gran (auto) 0.02 Absolute Neuts (auto) 2.7 Absolute Nucleated RBC 0.000 Nucleated RBC % (auto) 0.0 Anion Gap 13 Estim Creat Clear Calc 91.4 Estimated GFR > 60 Random Glucose 116 H Calcium 8.5 D Total Bilirubin 4.8 H AST 542 H ALT 872 H Alkaline Phosphatase 228 H Total Protein 5.8 L Albumin 3.3 L Microbiology Microbiology Results: Microbiology 02/10/24 05:26 Blood Culture - Preliminary Blood - Venous No growth after 24 hours. 02/10/24 05:21 Blood Culture - Preliminary Blood - Venous No growth after 24 hours. 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 Quality Stroke Does the patient have a stroke diagnosis?: No VTE Prior VTE?: No VTE Risk Level:: Medical - moderate - high VTE Device Contraindication: N/A - Device Ordered VTE Drug Contraindication: Treatment Not Indicated
--- NOTE | 2024-02-11 08:46 | PM.GIPN ---
Subjective Subjective Date of Service: 02/11/24 Interval History: doing well no abdominal pain LFT improved slightly cholangio yesterday with GB filling, Critical Care Time (minutes): 0 Physical Exam Vital Signs: Vital Signs: Last Vital Signs Temp 97.8 F 02/11/24 07:18 Pulse 63 02/11/24 07:18 Resp 16 02/11/24 07:18 BP 126/67 02/11/24 07:18 Pulse Ox 95 02/11/24 07:18 O2 Del Method Room Air 02/11/24 07:18 O2 Flow Rate 2 02/10/24 18:17 BMI result Body Mass Index 30.3 EXAM: GENERAL: The patient is well developed and nontoxic. VITAL SIGNS:see workflow HEENT: Nonicteric sclerae, PERRLA, EOMI. Oropharynx clear. Moist mucous membranes. Conjunctivae appear well perfused. No thyroid mass. CHEST: Chest wall is nontender. HEART: Regular rate and rhythm without murmurs. LUNGS: Clear to auscultation bilaterally. ABDOMEN: Soft, positive bowel sounds, nontender, no organomegaly.no flank tenderness SKIN: No rash, no excessive bruising, petechiae, or purpura. NEUROLOGIC: Cranial nerves II-XII intact without motor/sensory deficit. Psych: normal affect Objective Data Labs 02/11/24 06:42 02/11/24 06:42 Labs: Laboratory Results - last 24 hr 02/11/24 06:42 WBC 3.8 L RBC 3.97 L Hgb 13.1 L Hct 37.3 L MCV 94.0 MCH 33.0 MCHC 35.1 RDW 13.7 Plt Count 124 L MPV 10.1 Immature Gran % (Auto) 0.5 H Neut % (Auto) 72.2 Lymph % (Auto) 17.4 L [place] % (Auto) 8.9 Eos % (Auto) 0.5 Baso % (Auto) 0.5 Lymph # (Auto) 0.7 L [place] # (Auto) 0.3 Eos # (Auto) 0.0 Baso # (Auto) 0.0 Abs Immat Gran (auto) 0.02 Absolute Neuts (auto) 2.7 Absolute Nucleated RBC 0.000 Nucleated RBC % (auto) 0.0 Sodium 140 Potassium 4.5 Chloride 107 Carbon Dioxide 25 Anion Gap 13 BUN 10 Creatinine 0.88 Estim Creat Clear Calc 91.4 Estimated GFR > 60 Random Glucose 116 H Calcium 8.5 D Total Bilirubin 4.8 H AST 542 H ALT 872 H Alkaline Phosphatase 228 H Total Protein 5.8 L Albumin 3.3 L Microbiology Microbiology Results: Microbiology 02/10/24 05:26 Blood - Venous Blood Culture - Preliminary No growth after 24 hours. 02/10/24 05:21 Blood - Venous Blood Culture - Preliminary No growth after 24 hours. Procedures Date of Service Date of Service: 02/11/24 Progress Note: A&P Assessment and plan (1) Acute calculous cholecystitis: Status: Acute Plan 1/ Cholecystitis with concern for CBD stone and cystic duct stone , ERCP and cholangio with no stones and filling of GB. Seems to have passed stones, PLAN: 1/ f/u with surgery - plan is for early o/p cholecystectomy 2/ KUB in about 1 week to check on PD stent Time Spent With Patient Time: Total time managing care of this patient today ____ minutes. Quality Stroke Does the patient have a stroke diagnosis?: No VTE Prior VTE?: No VTE Risk Level:: Medical - moderate - high VTE Device Contraindication: N/A - Device Ordered VTE Drug Contraindication: Treatment Not Indicated
--- NOTE | 2024-02-11 08:54 | HO.POSTANES ---
Post Anesthesia Evaluation Post Anesthesia Evaluation Date of Service: 02/11/24 Vital Signs: Vital Signs Temp Pulse Resp BP Pulse Ox O2 Del Method 02/11/24 07:18 97.8 F 63 16 126/67 95 Room Air 02/11/24 03:45 97.1 F 64 18 109/62 95 Room Air 02/10/24 23:32 97.1 F 73 16 130/72 94 Room Air Anesthesia: General Endotracheal-GETA Mental Status: Awake Pain Control: Satisfactory Nausea/Vomiting: None Hydration: Adequate Anesthesia-Related Issues: No Anes. Related Issues
--- NOTE | 2024-02-11 08:57 | P.DS_ITS ---
DS: Providers Provider Date of Service: 02/11/24 Date of admission: 02/10/24 08:51 Date of discharge: 02/11/24 Primary care physician: Garry Rendon PA-C Consults: 02/10/24 08:50 Consult to General Surgery Routine Consulting Provider: [facility] General Surgeons Reason for consultation: acute mike Attending physician on discharge: Chuckie Briscoe Discharging clinician: Amy Mcfarland DS: Diagnosis Discharge Diagnosis (1) Choledocholithiasis: Status: Acute DS: Summary Hospital Course Hospital Course: From H&P on the day of admission The patient is a 64-year-old male with a past medical history of CAD status post drug-eluting stent x2 most recent 1 2 years ago, hypertension, hyperlipidemia who presents to the emergency room with complaints of epigastric/right upper quadrant abdominal pain which has been ongoing for the preceding 2 days. The patient reports that initially his pain was colicky in nature but over the last 24 hours prior to admission has become severe and constant. The patient does endorse 1 prior episode of similar pain about 8 months prior to this admission. At that time he reports he was worked up for gallbladder disease and workup was negative. In the emergency room the patient underwent testing including basic blood work which showed elevated LFTs in an obstructive pattern with the T bili of 5.1, AST/ALT of 1343/1295, alk-phos 280. Ultrasound showed a stone at the gallbladder neck with gallbladder wall thickening and pericholecystic fluid. CT scan showed a 3.5 mm cystic duct stone as well. The patient has been given IV morphine, IV Zofran, IV fluids and IV antibiotics. He will now be admitted for further workup and treatment Obstructive jaundice ERCP done yesterday afternoon - no stones seen anymore in the common bile duct s/p Sphincterotomy and stent placement. He feels well this morning, bilirubin trending down. He denies any abdominal pain and was able to tolerate food this am. 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 Discussed with patient, patient's and general surgery. he has been placed on the schedule for outpatient cholecystectomy tomorrow. He understands the risks of recurrent CBD obstruction, cholecystitis, sepsis and understands and accepts the risk and requests discharge to attend . joint decision with Surgery for patient to be d/c to attend and then return for surgery tomorrow. Vital signs stable, blood cultures negative to date. recommend KUB in one week to check on PD stent. Instructed to return to the emergency department with recurrent pain, fever or new onset of symptoms. Time Attestation Discharge Coordination Time (in mins): 36 Quality: Safe Use of Opioids Does Pt have an Active Cancer Diagnosis on the Problem List?: No Quality: Stroke Does the patient have a stroke diagnosis?: No Physical Exam Vital Signs: Vital Signs: Last Vital Signs Temp 97.8 F 02/11/24 07:18 Pulse 63 02/11/24 07:18 Resp 16 02/11/24 07:18 BP 126/67 02/11/24 07:18 Pulse Ox 95 02/11/24 07:18 O2 Del Method Room Air 02/11/24 07:18 O2 Flow Rate 2 02/10/24 18:17 BMI result Body Mass Index 30.3 Const: General: cooperative, alert and awake Nutritional Appearance: overweight Orientation/consciousness: patient oriented x3 Resp: Effort & Inspection: normal respiratory effort, able to speak in complete sentences, no respiratory distress and no use of accessory muscles Auscultation: clear to auscultation bilaterally Cardio: Rate: regular rate GI: Inspection: No distended Palpation (GI): Soft to palpation and nontender Neuro: General: patient oriented x3, moves all extremities and CN's II-XI intact bilaterally DS: Data Data Completed and Pending Labs on day of discharge: Laboratory Results - last 24 hr 02/11/24 06:42 WBC 3.8 L RBC 3.97 L Hgb 13.1 L Hct 37.3 L MCV 94.0 MCH 33.0 MCHC 35.1 RDW 13.7 Plt Count 124 L MPV 10.1 Immature Gran % (Auto) 0.5 H Neut % (Auto) 72.2 Lymph % (Auto) 17.4 L Whitley % (Auto) 8.9 Eos % (Auto) 0.5 Baso % (Auto) 0.5 Lymph # (Auto) 0.7 L Whitley # (Auto) 0.3 Eos # (Auto) 0.0 Baso # (Auto) 0.0 Abs Immat Gran (auto) 0.02 Absolute Neuts (auto) 2.7 Absolute Nucleated RBC 0.000 Nucleated RBC % (auto) 0.0 Sodium 140 Potassium 4.5 Chloride 107 Carbon Dioxide 25 Anion Gap 13 BUN 10 Creatinine 0.88 Estim Creat Clear Calc 91.4 Estimated GFR > 60 Random Glucose 116 H Calcium 8.5 D Total Bilirubin 4.8 H AST 542 H ALT 872 H Alkaline Phosphatase 228 H Total Protein 5.8 L Albumin 3.3 L Preliminary micro results at discharge 02/10/24 05:26 Blood Culture - Preliminary Blood - Venous No growth after 24 hours. 02/10/24 05:21 Blood Culture - Preliminary Blood - Venous No growth after 24 hours. Discharge Plan Discharge Anticipated Discharge Date/Time: 02/11/24 08:57 Patient Disposition: Home, Self-Care Discharge Diagnosis: choledocolithiasis Referrals: Garry Rendon PA-C [Primary Care Provider] - 1 Week Ayaan Eaton MD [Physician] - 1 Day Discharge Medications: New amoxicillin-pot clavulanate 875-125 mg tablet 1 tab PO Q12H 7 Days Qty: 14 0RF Continued lisinopril 10 mg tablet 10 mg PO DAILY Held atorvastatin 40 mg tablet 40 mg PO DAILY Qty: 90 1RF Hold Instructions: hold until procedure aspirin 81 mg tablet,delayed release (DR/EC) 81 mg PO DAILY Hold Instructions: hold until after procedure Discharge Orders: Discharge Order (Routine); Ordered 02/11/24 Ordered By: Amy Mcfarland Activity on Discharge: As tolerated Stand Alone Forms: Patient Portal Discharge page Print Language: Greenlandic Other Ambulatory Orders: XR KUB (Routine) Timeframe: 1 Week Facility: [facility] - Location: Radiology Ordered By: Amy Mcfarland Activity Restrictions/Additional Instructions: You are scheduled tenatively for your laparoscopic cholecystectomy on 02/12/24 through [facility]. Care Plan Goals: see below Health Concerns: Choledocholithiasis/elevated LFTs Plan of Treatment: s/p ERCP with stent/sphincterotomy Plan for outpatient cholecystectomy tomorrow Take antibiotics as prescribed Call Dr. Eaton this afternoon to confirm plan for surgery tomorrow Returned to the ED for any worsening pain, fever or any new symptoms recommend KUB in one week to check PD stent Assessment: Discharge summary Discharge Date/Time: 02/11/24 09:11
--- NOTE | 2024-02-11 09:14 | MHC.CM.PN ---
PT DISCHARGED PRIOR TO BEING SEEN BY CM PER EMR, PT LIVES WITH HIS AND IS INDEPENDENT WITH CARE AND MOBILITY PCP: KEYUR DURBIN PT DISCHARGED HOME WITH NO SERVICES
== END 2024-02-11 09:11 | disposition home or self-care (01) | DRG 446 ==
LOC: HO.ED 07:31 → HO.EDOVER 09:00 → HO.S3 16:47
PROVIDERS: Internal Medicine Gastroenterology; Admitting Provider Family Medicine; Emergency Provider Internal Medicine; PCP Physician Assistant; Visit Provider Physician Assistant Medical
PROC: 0F798ZZ Dilation of Common Bile Duct, Via Natural or Artificial Opening Endoscopic (ICD-10-PCS; CPT 43260; principal; 2024-02-10 16:30)
DX: K80.01 Calculus of gallbladder with acute cholecystitis with obstruction (principal); I25.10 Atherosclerotic heart disease of native coronary artery without angina pectoris; E78.5 Hyperlipidemia, unspecified; I10 Essential (primary) hypertension; Z95.5 Presence of coronary angioplasty implant and graft; Z87.891 Personal history of nicotine dependence; Z79.82 Long term (current) use of aspirin; Z79.899 Other long term (current) drug therapy
CPT/HCPCS: 36415; 74176; 76705; 80053; 83605; 83690; 85025; 87040; 99285; C1769; C2617; J1100; J1610; J2003; J2250; J2270; J2405; J2543; J2704; J3010; J7120; Q9967

== ENCOUNTER → 2024-02-10 08:51 | Outpatient (BNV) | payer MEDICARE, OTHER, SELFPAY | PROVIDERS: Admitting Provider Family Medicine; Emergency Provider Internal Medicine; PCP Physician Assistant; Visit Provider Surgery | DX: K80.50 Calculus of bile duct without cholangitis or cholecystitis without obstruction (principal) | CPT/HCPCS: 99222; 99232 ==

== ENCOUNTER → 2024-02-10 08:51 | Outpatient (BNV) | payer MEDICARE, OTHER, SELFPAY | PROVIDERS: Admitting Provider Family Medicine; Emergency Provider Internal Medicine; PCP Physician Assistant; Visit Provider Internal Medicine Gastroenterology | DX: K80.00 Calculus of gallbladder with acute cholecystitis without obstruction (principal) | CPT/HCPCS: 99232 ==

== ENCOUNTER → 2024-02-10 08:51 | Outpatient (BNV) | payer MEDICARE, OTHER, SELFPAY | PROVIDERS: Admitting Provider Family Medicine; Emergency Provider Internal Medicine; PCP Physician Assistant; Visit Provider Family Medicine | DX: K80.51 Calculus of bile duct without cholangitis or cholecystitis with obstruction (principal) | CPT/HCPCS: 99223; 99239 ==

== ENCOUNTER 2024-02-17 08:22 | Outpatient (AMB) | payer MEDICARE, OTHER, SELFPAY ==
--- NOTE | 2024-02-17 08:29 | A.OFFPC_ITS ---
Vital Signs 02/17/24 08:30 Height 5 ft 8 in Weight 183 lb 2 oz BMI 27.8 BP 110/72 Blood Pressure Location Lt brachial Position Sitting Pulse 72 Pulse Source Pulse Oximeter Pulse Oximetry (%) 98 Oxygen Delivery Method Room Air Intake Visit Reasons: [facility] 02/09 Intake Note: Patient is here for hospital discharge follow up. Patient was discharged from [facility] on 02/11/24. Leaflet Distributor Required: No Sock And Stocking Ironer: Not Required per policy Accompanied by: Self / Same As Patient Allergies No Known Allergies Allergy (Verified 02/17/24 09:06) Medication List - Last Reconciled 02/17/24 by Kranthi Hernández MD amoxicillin-pot clavulanate 875-125 mg 1 tab PO Q12H 7 days aspirin 81 mg PO DAILY atorvastatin 40 mg PO DAILY lisinopril 10 mg PO DAILY Tobacco use date assessed: 02/17/24 Fall risk assessment: No Falls in past year Last assessed Fall Risk: 02/17/24 Dental Screening Dental Screen Date: 12/30/23 [facility] 02/09 HPI Details 64-year-old male presents to the office after a recent admission to the hospital. Patient was admitted with elevated liver enzymes and a CBD stone. Patient underwent an ERCP and a stent was placed. Tolerated the procedure well. His symptoms of abdominal pain, nausea and vomiting have resolved. Patient is reluctant to get a cholecystectomy and is looking for alternate options. He also would like to know if the stent in the CBD has to be removed. [facility] Medical History Choledocholithiasis Annual physical exam Right upper quadrant abdominal pain Lumbar radiculopathy, acute Low back pain Colon cancer screening Bronchitis Screening for prostate cancer Solitary pulmonary nodule Hypercholesterolemia Hypertension Myocardial infarct, old Pelvic pain in male COVID-19 Surgical History History of laparoscopic cholecystectomy Hx of colonoscopy Hx of heart artery stent Previous back surgery Family History Mother Skin cancer Father CAD (coronary artery disease) Paternal Grandfather Cancer Social History Household Members: Spouse Housing: House Do you presently have visiting nurse or other home services: No Alcohol intake: current Alcohol intake frequency: does not drink Alcohol type: wine Patient Tobacco Use Status: Former Tobacco user e-Cigarette/Vaping Use: Never Used Second Hand Smoke Exposure: Yes Substance Use Type: Marijuana Advance Directives Date on File: 02/10/24 service: No Current occupational status: employed 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 [employer] Current occupational exposures/hazards: No Cognitive needs: No Hearing needs: No Vision needs: Yes (reading glasses) Questionnaire Thrive Questionnaire Date Thrive assessed: 12/28/23 I am a: Patient What is your living situation today?: I have a steady place to live Within the past 12 months, did the food you bought not last and you didn't have the money to get more?: Never true Within the past 12 months, did you worry whether your food would run out before you got money to buy more?: Never true Do you have trouble paying for medicines?: No Do you have trouble getting transportation to medical appointments?: No Do you have trouble paying your heating and electricity bill?: Yes Do you have trouble taking care of your child, family member or friend?: No Do you have trouble with day-to-day activities such as bathing, preparing meals, shopping, managing finances, etc.?: I choose not to answer this question Are you currently unemployed and looking for a job?: I choose not to answer this question Are you interested in more education?: I choose not to answer this question Please select the resources that you would like help with: None Currently or been in a relationship where the following occur: I choose not to answer THRIVE Score: 1 EB-7 AMB Questionnaire EB-7 Date EB - 7 assessed: 12/30/23 Source: Developed by Drs. Terry Mckeon, Denise Enrique, Nacho Laboy and colleagues, with an educational erika from [employer]. Physical exam (Primary Care) Vital Signs: Last Vital Signs Pulse 72 02/17/24 08:30 BP 110/72 02/17/24 08:30 Pulse Ox 98 02/17/24 08:30 Oxygen Delivery Method Room Air 02/17/24 08:30 BMI result Body Mass Index 27.8 Tobacco/Smoking Status: Tobacco use Status Tobacco use date assessed 02/17/24 02/17/24 08:36 Patient Tobacco Use Status Former Tobacco user 02/17/24 08:36 e-Cigarette/Vaping Use Never Used 02/17/24 08:36 Thrive Assessment: Date of Thrive Assessment Date Thrive assessed 12/28/23 02/17/24 08:36 Currently or been in a relationship where the following occur: I choose not to answer Const General: cooperative and healthy appearing Nutritional Appearance: well nourished Orientation/consciousness: patient oriented x3 Limitations: no limitations HENMT Head: Yes normal to inspection Eyes General: appearance normal, both eyes and all related structures Neck Neck: Yes normal visual inspection Chest Chest palpation & inspection: normal palpation of entire chest wall Resp Effort & Inspection: normal respiratory effort Neuro General: patient oriented x3 Coding Level of Care Code Est Pt Level 4 (04992) Complex EM visit Add On G2211 Diagnoses Choledocholithiasis K80.50 Assessment & Plan Assessment & Plan (1) Choledocholithiasis: Code(s): K80.50 - Calculus of bile duct without cholangitis or cholecystitis without obs truction Category: Medical Plan: Hospital note reviewed in detail. Patient had elevated liver enzymes which were trending down at the time of discharge. These have been repeated again to make sure they continue to trend downwards. Patient was explained the etiology of gallstones and he would like to change his diet and lifestyle to prevent recurrence of the gallstone. He has not keen on getting cholecystectomy. A call has been placed to the dragline mechanic regarding the CBD stent. Orders: Orders Basic Metabolic Panel Today K80.50 - Calculus of bile duct without cholangitis or cholecystitis without obstruction Complete Blood Count no Diff Today K80.50 - Calculus of bile duct without cholangitis or cholecystitis without obstruction Liver Panel Today K80.50 - Calculus of bile duct without cholangitis or cholecystitis without obstruction
[2024-02-17 08:30] VITALS: BP 110/72; PULSE 72; O2SAT 98; BMI 27.8
== END 2024-02-17 09:06 | disposition home or self-care (01) ==
PROVIDERS: PCP Physician Assistant; Visit Provider Internal Medicine
DX: K80.50 Calculus of bile duct without cholangitis or cholecystitis without obstruction (principal)

== ENCOUNTER → 2024-02-17 08:22 | Outpatient (BNVA) | payer MEDICARE, OTHER, SELFPAY | PROVIDERS: PCP Physician Assistant; Visit Provider Physician Assistant Medical ==

== ENCOUNTER 2024-02-17 09:10 | Outpatient (REF) | payer MEDICARE, OTHER, SELFPAY ==
[2024-02-17 11:11] LABS: Hematocrit 46.9 % (42.0-52.0); Hemoglobin 16.4 g/dl (14.0-18.0); Mean Corpuscular Hemoglobin 32.6 pg (27.0-33.0); Mean Corpuscular Volume 93.2 fL (80.0-98.0); Mean Platelet Volume 9.5 fL (9.4-12.4); Platelet Count 235 X10*3/uL (160-400); Red Blood Count 5.03 X10*6/uL (4.60-5.80); Red Cell Distribution Width 14.2 % (11.0-16.0); White Blood Count 5.5 X10*3/uL (4.8-10.8)
[2024-02-17 11:31] LABS: Alanine Aminotransferase 402 U/L (0-40); Albumin Level 4.3 g/dL (3.5-5.0); Alkaline Phosphatase 155 U/L (39-117); Anion Gap 12 (12-20); Aspartate Amino Transferase 126 U/L (5-37); Bilirubin Direct 0.7 mg/dL (0.0-0.5); Bilirubin Total 1.4 mg/dL (0.0-1.0); Blood Urea Nitrogen 18 mg/dL (9-16); Calcium 9.5 mg/dL (8.4-10.2); Carbon Dioxide 27 mmol/L (22-29); Chloride 103 mmol/L (96-108); Estimated Glomerular Filt Rate > 60; Glucose Random 102 mg/dL (60-115); Potassium 4.6 mmol/L (3.3-5.1); Sodium 137 mmol/L (135-145); Total Protein 7.9 g/dL (6.5-8.0)
== END 2024-02-17 09:11 | disposition home or self-care (01) ==
LOC: HO.10HDL 09:10
PROVIDERS: Visit Provider Internal Medicine
DX: K80.50 Calculus of bile duct without cholangitis or cholecystitis without obstruction (principal)
CPT/HCPCS: 36415; 80048; 80076; 85027; 99212

== ENCOUNTER 2024-02-18 11:35 | Outpatient (AMB) | payer MEDICARE, OTHER, SELFPAY ==
[2024-02-18 11:37] VITALS: BP 117/74; PULSE 81; BMI 28.4
--- NOTE | 2024-02-18 11:37 | A.OFFVIS_ITS ---
Vital Signs 02/18/24 11:37 Height 5 ft 8 in Weight 187 lb BMI 28.4 BP 117/74 Blood Pressure Location Rt brachial Position Sitting Pulse 81 Intake Visit Reasons: re-discuss lap mike Intake Note: Patient here to re- discuss lap mike. Patient c/o: denies abdominal pain, nausea, diarrhea, constipation. Laminating Machine Operator Required: No Accompanied by: Self / Same As Patient Allergies No Known Allergies Allergy (Verified 02/18/24 11:43) Medication List - Last Reconciled 02/18/24 by Ayaan Eaton MD aspirin 81 mg PO DAILY atorvastatin 40 mg PO DAILY lisinopril 10 mg PO DAILY HPI HPI re-discuss lap mike: Details: 64-year-old male here for follow-up for gallstones. He was admitted last week for he had a obstruction with gallstones. He had undergone ERCP with stenting. I had scheduled him for laparoscopic cholecystectomy last February 11. However, he did not want this done then and he is here to discuss surgery again He says he feels well overall. He denies any abdominal pain. He has good oral intake. [facility] Medical History Choledocholithiasis Annual physical exam Right upper quadrant abdominal pain Lumbar radiculopathy, acute Low back pain Colon cancer screening Bronchitis Screening for prostate cancer Solitary pulmonary nodule Hypercholesterolemia Hypertension Myocardial infarct, old Pelvic pain in male COVID-19 Surgical History History of laparoscopic cholecystectomy Hx of colonoscopy Hx of heart artery stent Previous back surgery Family History Mother Skin cancer Father CAD (coronary artery disease) Paternal Grandfather Cancer Social History Household Members: Spouse Housing: House Do you presently have visiting nurse or other home services: No Alcohol intake: current Alcohol intake frequency: does not drink Alcohol type: wine Patient Tobacco Use Status: Former Tobacco user e-Cigarette/Vaping Use: Never Used Second Hand Smoke Exposure: Yes Substance Use Type: Marijuana Advance Directives Date on File: 02/10/24 service: No Current occupational status: employed 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 Current occupational exposures/hazards: No Cognitive needs: No Hearing needs: No Vision needs: Yes (reading glasses) Review of Systems Const Denies chills and Denies fever(s) Card Denies chest pain, Denies dyspnea and Denies dyspnea on exertion Resp Denies cough, Denies dyspnea and Denies dyspnea on exertion GI Denies hematochezia and Denies change in bowel habits Denies hematuria and Denies difficulty urinating Musc Denies back pain and Denies limited range of motion Neuro Denies focal weakness and Denies convulsions Psych Denies depression and Denies mood swings Physical Exam Vital Signs: Last Vital Signs Pulse 81 02/18/24 11:37 BP 117/74 02/18/24 11:37 BMI result Body Mass Index 28.4 Const General: comfortable and no acute distress Orientation/consciousness: patient oriented x3 Eyes Other: Anicteric sclerae Neck Neck: Yes no lymphadenopathy Resp Auscultation: clear to auscultation bilaterally Cardio Rhythm: regular rhythm GI Palpation (GI): Soft to palpation, nontender and no guarding Neuro General: patient oriented x3 Assessment & Plan Assessment & Plan (1) Gallstones: Code(s): K80.20 - Calculus of gallbladder without cholecystitis without obstruction Category: Medical Plan: I had scheduled him for laparoscopic cholecystectomy last week but he had cancel this. He had needed ERCP last week as well because of CBD stones. His LFTs have improved significantly after ERCP I again had a long discussion with him about the option of proceeding with cholecystectomy in view of his gallstones with recent CBD obstruction. I explained the technique of the procedure as well as risks, benefits, and alternatives. He says he had done a lot of research online and says that would like to hold off on cholecystectomy. He says he feels that keeping the gallbladder and has a lot of advantages which he feels at waist the benefits of doing cholecystectomy at this time. He says that he is planning to do lifestyle changes including changes in his diet as well as avoiding alcohol. He does understand the risk of recurrence of CBD obstruction from passing stones. I also explained the risk of cholecystitis, and turns of symptoms with biliary colic. He understands the above. He also says that he is leaving for [place] tomorrow for an extended vacation for the holidays He says he will call me sometime next month to set an appointment again to [facility] surgical option. Coding Level of Care Code Est Pt Level 4 (82839) Diagnoses Gallstones K80.20
== END 2024-02-18 12:02 | disposition home or self-care (01) ==
PROVIDERS: PCP Physician Assistant; Visit Provider Surgery
DX: K80.20 Calculus of gallbladder without cholecystitis without obstruction (principal)
CPT/HCPCS: 99214

== ENCOUNTER → 2024-02-18 11:35 | Outpatient (BNVA) | payer MEDICARE, OTHER, SELFPAY | PROVIDERS: PCP Physician Assistant; Visit Provider Surgery | DX: K80.20 Calculus of gallbladder without cholecystitis without obstruction (principal) | CPT/HCPCS: 99212 ==

== ENCOUNTER 2024-04-06 15:51 | Outpatient (AMB) | payer MEDICARE, OTHER, SELFPAY ==
[2024-04-06 16:08] VITALS: BP 122/70; PULSE 67; TEMP 36.2; O2SAT 97; BMI 29.2
--- NOTE | 2024-04-06 16:08 | MHC.PC.OV ---
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 Required: No Accompanied by: Self / Same As Patient Allergies No Known Allergies Allergy (Verified 04/06/24 16:14) Medication List - Last Reconciled 04/06/24 by Garry Rendon PA-C aspirin 81 mg PO DAILY atorvastatin 40 mg PO DAILY lisinopril 10 mg PO DAILY Tobacco use date assessed: 04/06/24 Fall risk assessment: No Falls in past year Last assessed Fall Risk: 04/06/24 Dental Screening Dental Screen Date: 04/06/24 Did you have a dental visit in the last 12 months?: Yes Did you have a dental problem in the last 6 months where you did not have access to dental care?: No Was dental information given to patient?: Patient has dentist HPI MRI request HPI Details The patient is a 64-year-old male presenting with recurrent pain indicating lumbar disc herniation. Symptoms began two days ago, with pain localized in the hip and groin, progressively worsening and interfering with sleep. Such symptoms are characteristic, following the pattern of previous lumbar disc herniations. The patient underwent surgeries in August and October 2022 due to lumbar disc herniation, specifically at L3-L4 and L4-L5. He reports consistent pain in previous occurrences, which began in the groin and radiated down the leg, worsening over time. The patient is concerned about traveling to [facility] for his 's dental treatment, as previous episodes have resulted in severe pain, limiting mobility. The patient has contacted his surgeon for a follow-up, which is scheduled just before his travel date. He is seeking an MRI to assist the surgeon in evaluating his current condition. Prior MRIs showed L3-L4 disc extrusion and L4-L5 encroachment. There is concern for potential new or recurrent herniation of the lumbar discs. [facility] Medical History Lumbar radiculopathy, acute Choledocholithiasis Annual physical exam Right upper quadrant abdominal pain Low back pain Colon cancer screening Bronchitis Screening for prostate cancer Solitary pulmonary nodule Hypercholesterolemia Hypertension Myocardial infarct, old Pelvic pain in male COVID-19 Surgical History History of laparoscopic cholecystectomy Hx of colonoscopy Hx of heart artery stent Previous back surgery Family History Mother Skin cancer Father CAD (coronary artery disease) Paternal Grandfather Cancer Social History Household Members: Spouse Housing: House Do you presently have visiting nurse or other home services: No Alcohol intake: current Alcohol intake frequency: does not drink Alcohol type: wine Patient Tobacco Use Status: Former Tobacco user e-Cigarette/Vaping Use: Never Used Second Hand Smoke Exposure: Yes Substance Use Type: Marijuana Advance Directives Date on File: 02/10/24 service: No Current occupational status: employed Current occupation: [employer] IN[employer]ER Current occupational exposures/hazards: No Cognitive needs: No Hearing needs: No Vision needs: Yes (reading glasses) Questionnaire PHQ-9 Over the last 2 weeks, how often have you been bothered by any of the following problems? 1. Little interest or pleasure in doing things: not at all 2. Feeling down, depressed, or hopeless: not at all 3. Trouble falling or staying asleep, or sleeping too much: not at all 4. Feeling tired or having little energy: not at all 5. Poor appetite or overeating: not at all 6. Feeling bad about yourself - or that you are a failure or have let yourself or your family down: not at all 7. Trouble concentrating on things, such as reading the newspaper or watching television: not at all 8. Moving or speaking so slowly that other people could have noticed. Or the opposite - being so fidgety or restless that you have been moving around a lot more than usual: not at all 9. Thoughts that you would be better off or of hurting yourself in some way: not at all Total score: 0 Depression Screening Interpretation: Negative Depression Screening Done: Yes 02815 - PHQ-9 Billing: Yes Source: Developed by Drs. Terry Mckeon, Denise Enrique, Nacho Laboy and colleagues, with an educational erika from [employer]. Thrive Questionnaire Date Thrive assessed: 04/06/24 I am a: Patient What is your living situation today?: I have a steady place to live Within the past 12 months, did the food you bought not last and you didn't have the money to get more?: Never true Within the past 12 months, did you worry whether your food would run out before you got money to buy more?: Never true Do you have trouble paying for medicines?: No Do you have trouble getting transportation to medical appointments?: No Do you have trouble paying your heating and electricity bill?: Yes Do you have trouble taking care of your child, family member or friend?: No Do you have trouble with day-to-day activities such as bathing, preparing meals, shopping, managing finances, etc.?: I choose not to answer this question Are you currently unemployed and looking for a job?: I choose not to answer this question Are you interested in more education?: I choose not to answer this question Please select the resources that you would like help with: None Currently or been in a relationship where the following occur: I choose not to answer THRIVE Score: 1 AUDIT C Alcohol Use Questionnaire (AUDIT-C) 1. How often do you have a drink containing alcohol?: 2-4 times a month 3. How often do you have six or more drinks on one occasion?: Never Total Score: 2 EB-7 AMB Questionnaire EB-7 Date EB - 7 assessed: 04/06/24 Feeling nervous, anxious, or on edge: 0 = Not at all Not being able to stop or control worryin = Not at all Worrying too much about different things: 0 = Not at all Trouble relaxin = Not at all Being so restless that it is hard to sit still: 0 = Not at all Becoming easily annoyed or irritable: 0 = Not at all Feeling afraid as if something awful might happen: 0 = Not at all Total EB-7 score (0-4 normal; 5-9 mild; 10-14 moderate; 15-21 severe): 0 Source: Developed by Drs. Terry Mckeon, Denise Enrique, Nacho Laboy and colleagues, with an educational erika from [employer]. EB-7 Assessment Billing EB-7 Assessment Tool: EB-7 Assessment 28178 Review of Systems Const Denies headache(s) Eyes Denies loss of vision ENT Denies vertigo, Denies dizziness, Denies headache(s) and Denies sore throat Card Denies chest pain, Denies leg edema and Denies lightheadedness Resp Denies cough, Denies hemoptysis and Denies wheezing GI Denies abdominal pain, Denies melena, Denies constipation, Denies diarrhea and Denies vomiting Denies dysuria, Denies urinary frequency and Denies urinary urgency Musc Denies arthralgias, Denies joint swelling, Denies numbness and Denies tingling Neuro Denies Abnormal speech present, Denies behavioral changes, Denies vertigo, Denies dizziness, Denies headache(s), Denies loss of vision, Denies memory loss, Denies numbness and Denies tingling Psych Denies anxiety, Denies behavioral changes, Denies depression, Denies memory loss and Denies panic attacks Buddy/Lymph Denies easy bleeding and Denies easy bruising Aller/Immun Denies wheezing Physical exam (Primary Care) Vital Signs: Last Vital Signs Temp 97.1 F 04/06/24 16:08 Pulse 67 04/06/24 16:08 BP 122/70 04/06/24 16:08 Pulse Ox 97 04/06/24 16:08 Oxygen Delivery Method Room Air 04/06/24 16:08 BMI result Body Mass Index 29.2 Tobacco/Smoking Status: Tobacco use Status Tobacco use date assessed 02/17/24 04/06/24 16:09 Patient Tobacco Use Status Former Tobacco user 04/06/24 16:09 e-Cigarette/Vaping Use Never Used 04/06/24 16:09 Depression Screening Interpretation: Negative Thrive Assessment: Date of Thrive Assessment Date Thrive assessed 04/06/24 04/06/24 16:09 Currently or been in a relationship where the following occur: I choose not to answer Const General: healthy appearing, no acute distress, alert and awake Nutritional Appearance: well nourished Orientation/consciousness: oriented to person, oriented to place and oriented to time HENMT Ears: TM's normal bilaterally General nose exam: Normal nasal mucous membranes and turbinates present Eyes Conjunctivae: conjunctivae normal Sclerae: sclerae normal Pupils: Equal, round and reactive pupils present Neck Neck: Yes no lymphadenopathy and Yes no JVD Thyroid: Thyroid normal Carotids: no bruits Resp Effort & Inspection: normal respiratory effort and not tachypneic Auscultation: no crackles, no rales, no rhonchi and no wheezes Cardio Rate: regular rate Rhythm: regular rhythm Heart sounds: no murmurs and normal S1 and S2 GI Palpation (GI): Soft to palpation, nontender, no hepatomegaly and no splenomegaly Auscultation: normal bowel sounds Back/Spine/Pelvis Other: LIMITED RANGE OF MOTION LUMBAR SPINE DUE TO PAIN AND STIFFNESS, A ANTALGIC GAIT WHILE AMBULATING. DECREASED STRENGTH (4/5) IN THE RIGHT LOWER COMPARED TO LEFT (5/5) Skin General skin exam: no rashes or lesions noted and dry skin Neuro General: oriented to person, oriented to place and oriented to time Cranial nerves: Yes Equal, round and reactive pupils present Speech: No Abnormal speech present Gait exam (Neuro): Normal gait present Motor exam (neuro): no tremor noted Extrem Right upper extremity: full ROM Left upper extremity: full ROM Right lower extremity: full ROM; no edema Left lower extremity: full ROM; no edema Psych Mental Status: mental status grossly normal Speech and movement: Normal speech and movement present Affect: normal affect Attitude: cooperative Thought process: Normal thought process present Coding Level of Care Code Est Pt Level 3 (70825) Diagnoses Lumbar radiculopathy, acute M54.16 Additional Codes EB-7 Assessment Billing - EB-7 Assessment Tool: EB-7 Assessment 27000 ([id number]) PHQ-9 - 46938 - PHQ-9 Billing: Yes ([id number]) Assessment & Plan Assessment & Plan (1) Lumbar radiculopathy, acute: Code(s): M54.16 - Radiculopathy, lumbar region Category: Medical Plan: I discussed with the patient the possibility of a recurring or new lumbar disc herniation given the symptoms and past medical history. I emphasized the importance of obtaining an MRI before the surgeon's appointment to aid in diagnostic evaluation and treatment planning. An MRI of the lumbar spine with and without contrast is recommended to assess the current condition of the lumbar discs prior to the patient's surgery consultation. - Consider prescribing a prednisone taper to manage inflammation associated with the lumbar disc herniation. Orders: Orders MR lumbar spine wo/w con Today M54.16 - Radiculopathy, lumbar region Medications: New prednisone Take 3 tablets x3 days, 2 tablets x3 days, 1 tablet x3 days 10 mg PO DIRECTED 9 days 18 tabs 0RF M54.16 - Radiculopathy, lumbar region
== END 2024-04-06 16:27 | disposition home or self-care (01) ==
PROVIDERS: PCP Physician Assistant; Visit Provider Physician Assistant
DX: M54.16 Radiculopathy, lumbar region (principal)

== ENCOUNTER → 2024-04-06 15:51 | Outpatient (BNVA) | payer MEDICARE, OTHER, SELFPAY | PROVIDERS: PCP Physician Assistant; Visit Provider Physician Assistant | DX: M54.16 Radiculopathy, lumbar region (principal) | CPT/HCPCS: 96127; 99212 ==

== ENCOUNTER → 2024-04-07 13:38 | Outpatient (BNV) | payer MEDICARE, OTHER, SELFPAY | PROVIDERS: PCP Physician Assistant; Visit Provider Radiology Diagnostic Radiology | DX: M54.16 Radiculopathy, lumbar region (principal) | CPT/HCPCS: 72158 ==

== ENCOUNTER 2024-04-07 13:46 | Outpatient (REF) | payer MEDICARE, OTHER, SELFPAY ==
--- NOTE | ~2024-04-07 | MR_ITS ---
EXAMINATION: MR LUMBAR SPINE WITHOUT AND WITH CONTRAST CLINICAL INFORMATION: Medical lipid the, lumbar region. Recurrent herniation. Prior surgery in 2022. COMPARISON: July 10, 2022. TECHNIQUE: MRI of the lumbar spine was obtained using routine sequences with and without contrast. Intravenous contrast: Gadavist 8.5 mL without reported immediate complications. FINDINGS: Last rib-bearing vertebra labeled T12. Bone marrow inhomogeneity. Multilevel marginal osteophyte formation and disc desiccation and endplate irregularities. Schmorl nodes in the superior endplates of L3 and L4. The alignment is normal. No bone marrow STIR signal abnormality. Conus medullaris ends at pedicle of L1 with normal signal. There is no grouping or clumping of the neural elements of the thecal sac. T12-L1: No disc herniation. No neuroforamina stenosis. L1-2: No disc herniation. No neuroforamina stenosis. L2-3: Broad-based disc bulging. Facet joint and ligamentum flavum hypertrophy. Reduced AP diameter of the thecal sac and the neural foramina probably encroaching the neural elements. L3-4: Left-sided hemilaminectomy. Facet joint hypertrophy. Bilateral neuroforamina narrowing. L4-5: There is a broad-based right subarticular, foraminal and extraforaminal disc herniation with a focal hyperintense T2 signal likely annular fissure resulting in right ventral indentation to the thecal sac and the right neuroforamina and stenosis likely encroaching the neural elements. Facet joint hypertrophy as well as the left ligamentum flavum. There is absent right lamina. L5-S1: There is a broad-based left subarticular and foraminal disc herniation abutting the left S1 nerve root. Focal tiny hyperintense T2 signal suggesting annular fissure. Left neuroforamina narrowing. No gross enhancing lesion and or mass in the leptomeningeal compartment, central spinal canal or the prevertebral compartment. Probable parapelvic cysts, bilaterally. MR/MR lumbar spine wo/w con IMPRESSION: Right subarticular foraminal and extraforaminal broad-based disc herniation at L4-5 abutting probably encroaching the right L5 and L4 exiting nerve roots. Left subarticular and foraminal broad-based disc herniation at L5-S1 abutting the left S1 and left L5 nerve roots. Electronically signed by: Critsobal Juarez MD 04/07/2024 03:14 PM EST
== END 2024-04-07 13:47 | disposition home or self-care (01) ==
LOC: HO.MRI 13:46
PROVIDERS: PCP Physician Assistant; Visit Provider Physician Assistant
DX: M54.16 Radiculopathy, lumbar region (principal)
CPT/HCPCS: 72158

== ENCOUNTER 2025-01-02 07:54 | Outpatient (AMB) | payer OTHER, SELFPAY ==
--- OUTSIDE RECORDS SUMMARY | 2025-01-02 07:57 | XMS_ITS | Clinical Summary ---
Author Organization [facility] Address [address] [place] [address] [place] [phone] Phone Care Team Providers Care Combination Operator Name Role Phone Garry Rendon Primary Care Provider + Allergies No known active allergies Medications acetaminophen (TYLENOL) 500 MG tablet TAKE 1 TABLET BY MOUTH EVERY 6 HOURS NEEDED FOR FEVER FOR 7 DAYS 06/17/2022 Active aspirin 81 MG EC tablet Take 1 tablet by mouth every morning. 06/02/2022 Active atorvastatin (LIPITOR) 80 MG tablet Take 80 mg by mouth daily. 06/13/2022 Active clopidogrel (PLAVIX) 75 mg tablet Take 1 tablet by mouth every morning. 06/13/2022 Active gabapentin (NEURONTIN) 300 MG capsule TAKE 1 CAPSULE BY MOUTH ON DAY 1, 1 CAPSULE TWICE A DAY ON DAY 2, THEN 1 CAPSULE 3 TIMES A DAY 07/23/2022 Active lisinopril (PRINIVIL,ZESTR IL) 10 MG tablet Take 1 tablet by mouth every morning. 06/13/2022 Active metoprolol succinate (TOPROL-XL) 25 MG 24 hr tablet Take 1 tablet by mouth every morning. 06/13/2022 Active Social History Tobacco Use Types Packs/Day Years Used Date Smoking Tobacco: Never Smokeless Tobacco: Never Tobacco Cessation:Counseling Given: Not Answered Education Answer Date Recorded Are you interested in more education? Not on sammie e 07/21/2022 Are you concerned about learning? Not on file 07/21/2022 No 07/21/2022 No 07/21/2022 Digital Access Answer Date Recorded No 07/30/2022 No 07/30/2022 No 07/30/2022 Reliable internet access at home? Not on file 07/30/2022 Device with a working camera? Not on file Sex and Gender Information Value Date Recorded Sex Assigned at Male 07/18/2022 2:04 PM EDT Legal Sex Male 9:49 PM EDT Gender Identity Male 07/18/2022 2:04 PM EDT Sexual Orientation Straight 07/18/2022 2: 04 PM EDT Last Filed Vital Signs Vital Sign Reading Time Taken Comments Blood Pressure 123/69 07/29/2022 3:37 PM EDT Pulse 97 07/29/2022 3:37 PM EDT Temperature 36.1 C (97 F) 07/29/2022 3:32 PM EDT Respiratory Rate 16 07/29/2022 3:32 PM EDT Oxygen Saturation 97% 07/29/2022 3:37 PM EDT Inhaled Oxygen Concentration - - Weight 90.7 kg (200 lb) 07/29/2022 3:32 PM EDT Height 167 cm (5' 5.75 ) 07/29/2022 3:32 PM EDT Body Mass Index 32.53 07/29/2022 3:32 PM EDT Plan of Treatment Health Maintenance Due Date Last Done Comments Adult Td,Tdap Booster 1959 CREATININE LEVEL 1959 LIPID PANEL 1959 POTASSIUM LEVEL 1959 HEPATITIS C SCREENING 1977 HIV ONE-TIME SCREENING (18-6 5 YEARS) 1977 SCREENING FOR DIABETES 1994 COLOGUARD 01/13/2004 COLONOSCOPY 01/13/2004 COLORECTAL CANCER SCREENING 01/13/2004 FIT TEST 01/13/2004 FOBT 01/13/2004 SIGMOIDOSCOPY 01/13/2004 VIRTUAL COLONOSCOPY 01/13/2004 PNEUMOCOCCAL VACCINES (50+ y ears) (1 of 1 - PCV) 2009 ZOSTER VACCINES (1 of 2) 2009 DEPRESSION SCREENING 07/25/2023 07/24/2022 INFLUENZA VACCINE (#1) 2024 COVID-19 VACCINE ( - 2024-2 6 season) 2024 RSV VACCINE (1 - 1-dose 75+ series) 2034 SMOKING STATUS SCREENING (On ce After 26 Yrs) Completed 07/29/2022 HEPATITIS A VACCINES Aged Out No long er eligible based on patient's age to complete this topic HIB VACCINES Aged Out No longer eligi ble based on patient's age to complete this topic MENINGOCOCCAL VACCINES (ACWY) Aged Out No longer eligible based on patient's age to complete this topic MENINGOCOCCAL VACCINES (B) Aged Out N o longer eligible based on patient's age to complete this topic Medical Devices Not on file Insurance [employer] TOTAL CHOICE INDEMNITY [employer] TOTAL CHOICE INDEMNITY Rep TOTAL CHOICE INDEMNITY Rep TOTAL CHOICE INDEMNITY Rep TOTAL CHOICE INDEMNITY [address] [place], [place] [address] [facility] TOTAL CHOICE INDEMNITY Care Teams Combination Operator Relationship Specialty Start [place] [address] [place] [id number] PCP - General Physician [employer] Clerk 07/18/22 Additional Source Comments The information contained in this document represents components of the legal health record. It is not the complete legal health record.[facility]
[2025-01-02 08:12] VITALS: BP 142/78; PULSE 74; O2SAT 97; BMI 29.5
--- NOTE | 2025-01-02 08:12 | MHC.PC.OV ---
Vital Signs 01/02/25 08:12 Height 5 ft 8 in Weight 194 lb BMI 29.5 BP 142/78 H Blood Pressure Location Lt brachial Position Sitting Pulse 74 Pulse Source Pulse Oximeter Pulse Oximetry (%) 97 Oxygen Delivery Method Room Air Intake Visit Reasons: Annual Exam Allergies No Known Allergies Allergy (Verified 01/02/25 08:24) Medication List - Last Reconciled 01/02/25 by Garry Rendon PA-C aspirin 81 mg PO DAILY Held on 02/11/24. Instructions: hold until after procedure atorvastatin 20 mg PO DAILY lisinopril 10 mg PO DAILY Tobacco use date assessed: 04/06/24 Fall risk assessment: No Falls in past year Last assessed Fall Risk: 01/02/25 Dental Screening Dental Screen Date: 04/06/24 HPI Annual Exam HPI Details Patient is a 64-year-old male here today for a routine annual physical. Patient has a past medical history significant for coronary artery disease with drug-eluting stent in 2009, HTN, hyperlipidemia. Concern--> Musculoskeletal complaints include right-sided medial epicondylitis, which has been present for 8-9 months, and worsening arthritis in his fingers and toes. He also has a history of chronic low back pain with three herniated discs, experiencing a flare-up in the last few days after [place]. .. Coronary artery disease: Patient followed by cardiology and [place], Patient did have coronary stenting in 2009, Was advised to stay on high potency statin to keep below 70 optimally. He continues to follow an integrative medicine doctor in [place] and his atorvastatin over last 8-9 months has been at 20 mg. .. GERD: Has followed up with [facility] and did get an endoscopy showing inactive gastritis. 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 .. HTN: Patient's blood pressure slightly elevated today in office, he does report having white coat hypertension his blood pressure closely monitored at home is 120s to 130 systolic.. A otherwise he denies any chest discomforts, shortness of breath, headaches or dizziness. Colorectal cancer screening:Will be seeing Dr Henderson- due to his new family history noted a second-degree relative (paternal grandfather) with colon cancer.. Did cologaurd in 2023 which was negative- Vaccines: Declines COVID vacc and flu vaccine. Declines PCV , Needs td PFSH Medical History (Updated 01/02/25 @ 09:55 by Garry Rendon PA-C) Acute calculous cholecystitis Colon cancer screening Lumbar radiculopathy, acute Annual physical exam Right upper quadrant abdominal pain Low back pain Bronchitis Screening for prostate cancer Solitary pulmonary nodule Hypercholesterolemia Hypertension Myocardial infarct, old Pelvic pain in male COVID-19 Surgical History History of laparoscopic cholecystectomy Hx of colonoscopy Hx of heart artery stent Previous back surgery Family History Mother Skin cancer Father CAD (coronary artery disease) Paternal Grandfather Cancer Colon cancer Social History Household Members: Spouse Housing: House Do you presently have visiting nurse or other home services: No Alcohol intake: current Alcohol intake frequency: a few times a month Alcohol type: wine Patient Tobacco Use Status: Former Tobacco user Tobacco use type: Cigarette e-Cigarette/Vaping Use: Never Used Second Hand Smoke Exposure: Yes Substance Use Type: Marijuana Advance Directives Date on File: 02/10/24 service: No Current occupational status: employed Current occupation: RIGHT [employer] MAN Current occupational exposures/hazards: No Cognitive needs: No Hearing needs: No Vision needs: Yes (reading glasses) Questionnaire Thrive Questionnaire Date Thrive assessed: 04/06/24 EB-7 AMB Questionnaire EB-7 Date EB - 7 assessed: 04/06/24 Source: Developed by Drs. Terry Mckeon, Denise Enrique, Nacho Laboy and colleagues, with an educational erika from [employer]. Review of Systems Const Denies body aches, Denies chills, Denies excessive sweating, Denies fatigue, Denies fever(s) and Denies headache(s) Eyes Denies blurry vision ENT Denies dysphagia, Denies vertigo, Denies dizziness, Denies headache(s), Denies hearing loss and Denies tinnitus Card Denies chest pain, Denies chest pain with activity, Denies syncope, Denies irregular heart rhythm and Denies dyspnea Resp Denies chest congestion, Denies cough, Denies hemoptysis, Denies dyspnea and Denies wheezing GI Denies abdominal pain, Denies melena, Denies hematochezia, Denies coffee ground emesis, Denies dysphagia, Denies diarrhea, Denies nausea and Denies vomiting Denies difficulty urinating, Denies dysuria, Denies urinary frequency, Denies urinary hesitancy and Denies urinary urgency Musc Denies arthralgias, Denies limited range of motion, Denies muscle cramps and Denies muscle weakness Skin/Breast Denies rash and Denies skin ulcer Neuro Denies Abnormal speech present, Denies confusion, Denies vertigo, Denies dizziness, Denies syncope, Denies headache(s), Denies memory loss and Denies seizure-like activity Psych Denies anxiety, Denies confusion, Denies depression, Denies memory loss, Denies panic attacks and Denies paranoia Endo Denies excessive sweating, Denies fatigue, Denies flushing, Denies polydipsia and Denies polyuria Aller/Immun Denies wheezing Physical exam (Primary Care) Vital Signs: Last Vital Signs Pulse 74 01/02/25 08:12 BP 142/78 H 01/02/25 08:12 Pulse Ox 97 01/02/25 08:12 Oxygen Delivery Method Room Air 01/02/25 08:12 BMI result Body Mass Index 29.5 Tobacco/Smoking Status: Tobacco use Status Tobacco use date assessed 04/06/24 01/02/25 08:16 Patient Tobacco Use Status Former Tobacco user 01/02/25 08:16 Tobacco use type Cigarette 01/02/25 08:16 e-Cigarette/Vaping Use Never Used 01/02/25 08:16 Thrive Assessment: Date of Thrive Assessment Date Thrive assessed 04/06/24 01/02/25 08:16 Const General: cooperative, comfortable, no acute distress, alert and awake; No confusion Orientation/consciousness: oriented to person, oriented to place, patient oriented x3 and No confusion HENMT Head: Yes normocephalic Ears: external ears normal and TM's normal bilaterally Face and sinus: No sinus tenderness Mouth: Normal oral and palatal mucosa present and tongue normal Teeth and gingiva: dentition normal and gingiva normal Throat: Yes posterior oropharynx normal, Yes tonsils normal and Yes uvula midline Eyes Conjunctivae: conjunctivae normal Sclerae: sclerae normal Pupils: Equal, round and reactive pupils present EOM: EOMs intact bilaterally Direct Ophthalmoscopy: No no photophobia Neck Neck: Yes no lymphadenopathy, No tender and Yes no JVD Thyroid: Thyroid normal Carotids: no bruits Chest Chest palpation & inspection: no tenderness Resp Effort & Inspection: normal respiratory effort, no audible wheezes, not labored and no stridor Auscultation: no crackles, no rales, no rhonchi and no wheezes Cardio Jugular venous distension: no JVD Rate: regular rate, not bradycardic and not tachycardic Rhythm: regular rhythm Bruits: no carotid bruits Peripheral pulses: Peripheral pulses 2+ throughout GI Inspection: Yes normal to inspection, No abdominal wall ecchymosis and No visible herniation Palpation (GI): Soft to palpation, nontender, no guarding, not rigid and No hepatosplenomegaly present Auscultation: normoactive bowel sounds General: Yes no CVA tenderness Back/Spine/Pelvis Back: no CVA tenderness and No back tenderness Cervical Spine: cervical ROM normal Thoracic/Lumbar Spine: thoracic and lumbar spine normal to inspection, straight leg raise negative bilaterally, No thoraco-lumbar ROM limited and No lumbar spinal tenderness Skin Lesions: no lesions Rashes: no rashes Wounds: no wounds Neuro General: oriented to person, oriented to place, patient oriented x3, CN's II-XI intact bilaterally and No confusion Cranial nerves: Yes Equal, round and reactive pupils present and Yes Normal accommodation reflex present Cognition (Neuro): normal cognition Speech: No Abnormal speech present Gait exam (Neuro): Normal gait present Motor exam (neuro): 5/5 motor strength present throughout Extrem Right upper extremity: full ROM; no cyanosis Left upper extremity: full ROM; no cyanosis Right lower extremity: no edema Left lower extremity: no edema Psych Appearance: grossly normal Mental Status: mental status grossly normal Affect: normal affect Attitude: cooperative Thought process: Normal thought process present Coding Level of Care Code Est Pt Prev Care >65y(81776) Diagnoses Annual physical exam Z00.00 Primary hypertension I10 Hypertension type: primary hypertension Coronary artery disease involving little [place] tribe coronary artery of little [place] tribe heart without angina pectoris I25.10 Coronary Disease-Associated Artery/Lesion type: [place] tribe artery [place] vs. transplanted heart: little [place] tribe heart Associated angina: without angina Assessment & Plan Assessment & Plan (1) Annual physical exam: Code(s): Z00. - Encounter for general adult medical examination without abnormal findings Category: Medical Plan: As per HPI (2) HTN (hypertension): Code(s): I10 - Essential (primary) hypertension Category: Medical Qualifiers: Hypertension type: primary hypertension Qualified Code(s): I10 - Essential (primary) hypertension Plan: Patient's blood pressure slightly elevated today in office, he reports at home blood pressures are stable.. Will continue his current dose of lisinopril 10 mg. Not on metoprolol anymore due to low heart rates. Goal blood pressures to remain below 140/90 (3) CAD (coronary artery disease): Code(s): I25.10 - Atherosclerotic heart disease of [place] coronary artery without angina pectoris Category: Medical Qualifiers: Coronary Disease-Associated Artery/Lesion type: [place] artery [place] vs. transplanted heart: [place] tribe heart Associated angina: without angina Qualified Code(s): I25.10 - Atherosclerotic heart disease of [place] coronary artery without angina pectoris Plan: Patient continues on antiplatelet therapy and moderate dose statin with goal LDL to remain below 70. 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 He is also followed by integrative medicine doctor. He is concerned about continuing in therapy due to side effects. Explained that he needs an LDL optimally be below 70. He will recheck his fasting lipid panel soon. Orders: Orders Lipid Panel Today I25.10 - Atherosclerotic heart disease of little [place] tribe coronary artery without angina pectoris Complete Blood Count no Diff Today I25.10 - Atherosclerotic heart disease of [place] coronary artery without angina pectoris Comprehensive [facility]. Panel Fast Today I25.10 - Atherosclerotic heart disease of [place] coronary artery without angina pectoris Microalbumin, Random (w Creat) Today I10 - Essential (primary) hypertension Prostate Specific Antigen Scr Today I10 - Essential (primary) hypertension, Z12.5 - Encounter for screening for malignant neoplasm of prostate Patient Instructions: Goal: Blood pressure to remain below 140/90, LDL optimally to be below 70 Barriers: Adherence to physical activity and healthy eating habits
== END 2025-01-02 08:48 | disposition home or self-care (01) ==
LOC: HO.HMCH 07:55
PROVIDERS: PCP Physician Assistant; Visit Provider Physician Assistant
DX: Z00.00 Encounter for general adult medical examination without abnormal findings (principal); I10 Essential (primary) hypertension; I25.10 Atherosclerotic heart disease of native coronary artery without angina pectoris

== ENCOUNTER 2025-01-03 10:34 | Outpatient (REF) | payer MEDICARE, OTHER, SELFPAY ==
--- OUTSIDE RECORDS SUMMARY | 2025-01-03 13:17 | XMS_ITS | Clinical Summary ---
Author Organization [facility] Address [address] [place] [address] [place] [phone] Phone Care Team Providers Care Slasher Tender Name Role Phone Garry Rendon Primary Care [...] topic Medical Devices Not on file Insurance [employer] TOTAL CHOICE INDEMNITY [employer] TOTAL CHOICE INDEMNITY [email or web address] TOTAL CHOICE INDEMNITY [email or web address] TOTAL CHOICE INDEMNITY [email or web address] TOTAL CHOICE INDEMNITY [address] [place], [place] [address] [facility] TOTAL CHOICE INDEMNITY Care Teams Slasher Tender Relationship Specialty [place] [address] [place] [id number] PCP - General Physician Office Administration 07/18/22 Additional Source Comments The information contained in this document represents components of the legal health record. It is not the complete legal health record.[facility]
[2025-01-03 13:24] LABS: Hematocrit 48.1 % (42.0-52.0); Hemoglobin 16.3 g/dl (14.0-18.0); Mean Corpuscular HGB Conc 33.9 g/dl (31.0-36.0); Mean Corpuscular Hemoglobin 32.4 pg (27.0-33.0); Mean Corpuscular Volume 95.6 fL (80.0-98.0); NRBC Abs Auto 0.000 X10*3/uL (0.0-0.012); NRBC Pct Auto 0.0 /100WBC (0.0-0.2); Platelet Count 150 X10*3/uL (160-400); Red Blood Count 5.03 X10*6/uL (4.60-5.80); White Blood Count 5.5 X10*3/uL (4.8-10.8)
[2025-01-03 13:43] LABS: Alanine Aminotransferase 47 U/L (0-40); Albumin Level 4.6 g/dL (3.5-5.0); Alkaline Phosphatase 56 U/L (39-117); Anion Gap 13 (12-20); Aspartate Amino Transferase 38 U/L (5-37); Blood Urea Nitrogen 20 mg/dL (9-16); Calcium 9.4 mg/dL (8.4-10.2); Carbon Dioxide 29 mmol/L (22-29); Chloride 105 mmol/L (96-108); Cholesterol 178 mg/dL (<200); Estimated Glomerular Filt Rate > 60; HDL Cholesterol 62 mg/dL (>40); Potassium 4.8 mmol/L (3.3-5.1); Sodium 142 mmol/L (135-145); Total Protein 7.7 g/dL (6.5-8.0); Triglycerides 80 mg/dL (<150)
[2025-01-03 14:23] LABS: Microalbum/Creatinine Ratio Ur 4.0 ug/mg cr (<30)
== END 2025-01-03 10:35 | disposition home or self-care (01) ==
LOC: HO.10HDL 10:34
PROVIDERS: Visit Provider Physician Assistant
DX: I10 Essential (primary) hypertension (principal); I25.10 Atherosclerotic heart disease of native coronary artery without angina pectoris; Z12.5 Encounter for screening for malignant neoplasm of prostate
CPT/HCPCS: 36415; 80053; 80061; 82043; 82570; 84153; 85027

== ENCOUNTER 2025-02-21 09:13 | Outpatient (REF) | payer MEDICARE, OTHER, SELFPAY ==
--- NOTE | ~2025-02-21 | US_ITS ---
CLINICAL HISTORY: R74.8 - Abnormal levels of other serum enzymes --- Additional Notes or Special Instructions: Eval for fatty liver US abdomen complete Comparison: None provided Findings: Suboptimal exam due to limited acoustic window. The visualized portion of pancreas head is normal. Remaining pancreas is obscured by bowel gas. The visualized aorta and inferior vena cava are normal caliber. The liver is not entirely seen, right lobe length is 12.6 cm. Mildly echogenic liver parenchyma, no hepatic lesion in the visualized liver. No intrahepatic bile duct dilatation. The common duct is 3 mm in diameter. The gallbladder is normal. Negative sonographic Canales sign. The main portal vein is patent with antegrade flow. The right kidney is grossly normal, 10.2 cm in length. The left kidney is grossly normal, 12.1 cm in length. The spleen is grossly normal, 9.2 cm in length. No free fluid in the abdomen. Impression: 1. Suboptimal evaluation of abdominal organs due to limited acoustic window. 2. Mildly echogenic liver parenchyma, non-specific, could be accentuated by body habitus, technique or related to parenchymal liver disease. This document has been electronically signed by: Laura Martin MD on 02/22/2025 10:36:48
--- OUTSIDE RECORDS SUMMARY | 2025-02-21 10:35 | XMS_ITS | Clinical Summary ---
Author Organization [facility] Address [address] [place] [address] [place] [phone] Phone Care Team Providers Care Food Processor Name Role Phone Garry Rendno Primary Care Provider + Allergies No known [...] POTASSIUM LEVEL 1959 HEPATITIS C SCREENING 1977 SCREENING FOR DIABETES 1994 COLOGUARD 01/13/2004 COLONOSCOPY 01/13/2004 COLORECTAL CANCER SCREENING 01/13/2004 FIT TEST 01/13/2004 FOBT 01/13/2004 SIGMOIDOSCOPY 01/13/2004 VIRTUAL COLONOSCOPY 01/13/2004 PNEUMOCOCCAL VACCINES (50+ y ears) (1 of 1 - PCV) 2009 ZOSTER VACCINES (1 of 2) 2009 DEPRESSION SCREENING 07/25/2023 07/24/2022 INFLUENZA VACCINE (#1) 2024 COVID-19 VACCINE (1 - 2024-2 6 season) 2024 RSV VACCINE [...] topic Medical Devices Not on file Insurance [email or web address] TOTAL CHOICE INDEMNITY [email or web address] TOTAL CHOICE INDEMNITY [employer] TOTAL CHOICE INDEMNITY [employer] TOTAL CHOICE INDEMNITY [employer] [facility] TOTAL CHOICE INDEMNITY [employer] [facility] TOTAL CHOICE INDEMNITY Care Teams Food Processor Relationship Specialty Start Date End Date Garry Rendon PA [address] [place] [address] PCP - General Physician Mash Tub Cooker Operator 07/18/22 Additional Source Comments The information contained in this document represents components of the legal health record. It is not the complete legal health record.[facility]
--- OUTSIDE RECORDS SUMMARY | 2025-02-21 10:35 | XMS_ITS | Clinical Summary ---
Author Organization [facility] Address [address] [place] [address] Care Team Providers Care Color Finisher Name Role Phone Garry Rendon Primary Care Provider Medications aspirin 81 mg EC tablet TAKE 1 TABLET BY MOUTH EVERY DAY 90 tablet 3 5 Active lisinopriL (PRINIVIL,ZESTR IL) 10 mg tablet Take 1 tablet (10 mg total) by mouth 1 (one) time each day. 90 tablet 1 5 Active lisinopriL (PRINIVIL,ZESTR IL) 10 mg tablet TAKE 1 TABLET BY MOUTH EVERY DAY 90 tablet 1 5 01/27/20 25 Discontinu ed(Reorder ) Encounters Date Type Department Care Team Description 01/26/2025 Telephone [facility] [place] [facility] [address] [place] [address] Isidro Calles MD from Last 3 Months Surgical History Surgery Date Site/Laterality Comments OTHER SURGICAL HISTORY PROCEDURE: [place] PATIENT HAS A CORONARY ARTERY STENT OTHER SURGICAL HISTORY PROCEDURE: HISTORY OTHER; COMMENT: vocal chords Family History Medical History Relation Name Comments Coronary artery disease Father s/p CABG Coronary artery disease Mother s/p stent Relation Name Status Comments Father Mother Social History Tobacco Use Types Packs/Day Years Used Date Smoking Tobacco: Former Cigarettes 1 Q uit: 03/09/1992 Smokeless Tobacco: Never Alcohol Use Standard Drinks/Week Comments Yes 0 (1 standard drink = 0.6 oz pur e alcohol) Sex and Gender Information Value Date Recorded Sex Assigned at Not on file Legal Sex Male 7:21 AM EST Gender Identity Not on file Sexual Orientation Not on file Last Filed Vital Signs Vital Sign Reading Time Taken Comments Blood Pressure 130/76 10/29/2023 9:33 AM EDT Sit ting L Arm Pulse 64 10/29/2023 9:33 AM EDT Temperature - - Respiratory Rate - - Oxygen Saturation - - Inhaled Oxygen Concentration - - Weight 87.5 kg (193 lb) 10/29/2023 9:33 AM EDT Height 172.7 cm (5' 8 ) 10/29/2023 9:33 AM EDT Body Mass Index 29.35 10/29/2023 9:33 AM EDT Plan of Treatment Health Maintenance Due Date Last Done Comments Colorectal Cancer Screening: Colonoscopy 1959 DTaP,Tdap,and Td Vaccines (1 - Tdap) 1978 Pneumococcal Vaccine: 50+ Years (1 of 1 - PCV) 2009 Zoster Vaccines (1 of 2) 2009 Abdominal Aortic Aneurysm (AAA) Screen 02/09/2022 Cholesterol Screening (Lipid Panel) 02/09/2022 Hepatitis C Screening 02/09/2022 Social Influencers of Health Screening 02/09/2022 Falls Risk Assessment 01/13/2024 Depression Screening 03/09/2024 COVID-19 Vaccine (1 - 2024-2 6 season) 2024 Influenza Vaccine (#1) 2024 Hypertension/CHF/CAD Annual BMP Blood Test 03/08/2025 03/08/2024, 02/23/2024 RSV Immunization Adult Patients (1 - 1-dose 75+ series) 2034 HIB Vaccines Aged Out No longer eligi ble based on patient's age to complete this topic HPV Vaccines Aged Out No longer eligi ble based on patient's age to complete this topic Hepatitis A Vaccines Aged Out No long er eligible based on patient's age to complete this topic Hepatitis B Vaccines Aged Out No long er eligible based on patient's age to complete this topic IPV Vaccines Aged Out No longer eligi ble based on patient's age to complete this topic MMR Vaccines Aged Out No longer eligi ble based on patient's age to complete this topic Meningococcal ACWY Vaccine Aged Out N o longer eligible based on patient's age to complete this topic Meningococcal B Vaccine Aged Out No l onger eligible based on patient's age to complete this topic RSV Immunization Patients Under 20 months Aged Out No longer eligible b ased on patient's age to complete this topic Varicella Vaccines Aged Out No longer eligible based on patient's age to complete this topic Care Teams Color Finisher Relationship Specialty Start Date End Date Garry Rendon PA PCP - General 09/12/21
--- OUTSIDE RECORDS SUMMARY | 2025-02-21 10:35 | XMS_ITS | Patient Health Record ---
Author Organization [facility] Address [address] [place] [address] Care Team Providers Care Professor Of Biostatistics Name Role Phone Garry Rendon Primary Care Provider Unavailab Last Palacios Jr Unavailable [phone] Reason For Referral No Information Medications Medication SIG (Take, Route, Fr equency, Duration) Notes Start Date End Date Status Baby Aspirin Active Lisinopril 40 MG Tablet 1 tablet Orally Once a day Active Immunizations Vaccine Route Administration Date Status Comme nts Influenza Unknown 02/15/2025 Refused Social History Tobacco Use: Social History Observation Description Date Details (start date - stop date) Former Smoker NA - NA Social History Drug/Alcohol: Social Info Question Answer Notes AUDIT-C (Standard) Did you have a drink containing alcohol in the past year? Yes How often did you have a drink containing alcohol in the past year? 2 to 4 times a month (2 points) How many drinks did you have on a typical day when you were drinking in the past year? 1 or 2 drinks (0 point) How often did you have six or more drinks on one occasion in the past year? 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 Problems Problem Type SNOMED Code ICD Code Onset Dates Problem Status W/U Status Risk Notes Problem Colon cancer screening (790145258) Colon cancer screening (Z12.11) Active confirmed Problem Pre-procedure evaluation check (878074924) Encounter for other preprocedural examination (Z01.818) Active confirmed Problem Long-term current use of aspirin (8422100701113 03) Aspirin long-term use (Z79.82) Active confirmed Vital Signs Temperature 97.9 degrees Fahrenheit 02/15/2025 Blood pressure diastolic 01 mm Hg 02/15/2025 Height 68 in 02/15/2025 Blood pressure systolic 001 mm Hg 02/15/2025 Weight 200.2 lbs 02/15/2025 BMI 30.44 kg/m2 02/15/2025 Encounters Encounter Location Date Provider Diagnosis [facility] [address] [place] [address] 02/15/2025 Last Henderson Jr Encounter for other preprocedural examination Z01.818 ; Aspirin long-term use Z79.82 and Colon cancer screening Z12.11 Assessments Encounter Date Diagnosis (ICD Code) Assessment Notes Treatment Notes Treatment Clinical Notes Section Notes 02/15/2025 Encounter for other preprocedural examination (ICD-10 - Z01.818) We discussed colonoscopy today. We discussed colon cancer screening in detail. We discussed risks and benefits of colonoscopy today. He understands these and agrees to proceed. He is advised to stop aspirin 1 week before the procedure. He should continue his other medications unless advised differently by the anesthesia department. 02/15/2025 Aspirin long-term use (ICD-10 - Z79.82) We discussed colonoscopy today. We discussed colon cancer screening in detail. We discussed risks and benefits of colonoscopy today. He understands these and agrees to proceed. He is advised to stop aspirin 1 week before the procedure. He should continue his other medications unless advised differently by the anesthesia department. 02/15/2025 Colon cancer screening (ICD-10 - Z12.11) We discussed colonoscopy today. We discussed colon cancer screening in detail. We discussed risks and benefits of colonoscopy today. He understands these and agrees to proceed. He is advised to stop aspirin 1 week before the procedure. He should continue his other medications unless advised differently by the anesthesia department. Plan Of Treatment Future Test Test Name Order Date COLONOSCOPY 02/15/2025 Next Appt Details Provider Name:Last terrazas Jr, 04/18/2025 07:30:00 AM, [address] [place] [address] , [place], [place], [phone], Insurance Providers Payer Name Payer Address Payer Phone Subscriber Number Group Number Insured Name Patient Relationship to Insured Coverage Start Date Coverage End Date MEDICARE OF [place] [address] [place] [id number] SARINA MICHELLE Self - patient is the insured Aditive Insurance ([place]) [address] [place] [address] [id number] SARINA MICHELLE Self - patient is the insured Medical (General) History Medical History History ICD Code Coronary artery disease with history of myocardial infarction and stent placement, cardiology provider is Dr. Calles. Erosive esophagitis, diagnosed by EGD Hypertension Surgical History Surgery Date(Month/Year) cholecystectomy
== END 2025-02-21 09:14 | disposition home or self-care (01) ==
LOC: HO.US 09:13
PROVIDERS: PCP Physician Assistant; Visit Provider Physician Assistant
DX: R74.8 Abnormal levels of other serum enzymes (principal)
CPT/HCPCS: 76700

== ENCOUNTER → 2025-02-21 09:15 | Outpatient (BNV) | payer MEDICARE, OTHER, SELFPAY | PROVIDERS: PCP Physician Assistant; Visit Provider Radiology Diagnostic Radiology | DX: R74.8 Abnormal levels of other serum enzymes (principal) | CPT/HCPCS: 76700 ==